=== PATIENT | female | born 1960 | race Caucasian/White ===

== ENCOUNTER 2022-10-20 10:39 | Emergency (ER) | payer OTHER ==
--- OUTSIDE RECORDS SUMMARY | 2022-10-20 10:43 | XMS REPORT | Continuity of Care Document ---
:1960 Author Organization [facility] t Address [address] [place] [address] Care Team Providers Name Role Phone Awilda Alatorre Attending Clinician Unavailable Lucy Escobedo Attending Clinician Unavailable Payers Payer Name Policy Type Policy Number Effective Date Expiration Date S [place] [address] [id number] 2019 [facility] 00:00:00 [facility] Problems Condition Condition Condition Status Onset Resolution Last Treating Co mments Source Name Details Category Date Date Treatment Clinician Date [id number] Primary Problem Common insomnia [facility] [id number] Depression Problem Co mmon with Spirit anxiety [facility] [id number] Abnormal Problem Comm on renal [facility] function - [facility] test [facility] [id number] Asthma, Problem Commo n unspecifie Spirit d asthma - [facility] severity, St unspecifie [facility] d whether Medical complicate Center d, unspecifie d whether persistent [id number] Restless Problem Commo n legs [facility] syndrome [facility] [id number] Essential Problem Comm on hypertensi Spirit on [facility] [id number] Overweight Problem Co mmon (BMI Spirit 25.0-29.9) [facility] Bipolar Bipolar Problem Common disorder disorder [facility] [id number] Prediabete Problem Co mmon s Spirit [facility] [id number] Electrolyt Problem Co mmon e Spirit abnormalit [facility] y [facility] [id number] Abnormal Problem Comm on CBC [facility] [id number] Tobacco Problem Commo n use [facility] Allergies, Adverse Reactions, Alerts This patient has no known allergies or adverse reactions. Social History Social Habit Start Date Stop Date Quantity Comments Source History of Tobacco Current Smoker Co mmon [facility] - [facility] Use [facility] Sex Assigned At Com mon [facility] Smoking Status Start Date Stop Date Source Current Smoker 2022-01-29 00:00:00 Common [facility] Medications Ordered Filled Start Stop Current Ordering Indication Dosage Frequency Signature Comments Components Source Medication Medication Date Date Medication? Clinician (SIG) Name Name amLODIPine amLODIPine 2020-03 No 1{table QD amLODIPine Besylate 5 Besylate 5 2-16 t} Besylate 5 MG MG 00:00: MG 00 amLODIPine amLODIPine 2020-03 No 1{table QD amLODIPine Besylate 5 Besylate 5 2-16 t} Besylate 5 MG MG 00:00: MG 00 Sertraline Sertraline 2020-03 No 1{table QD Sertraline HCl 25 MG HCl 25 MG 0-04 t} HCl 25 MG 00:00: 00 Trelegy Trelegy 2020- No 1{puff} QD Trelegy Ellipta Ellipta 7-19 11-16 Ellipta 100-62.5-25 100-62.5-25 00:00: 00:00 100-62.5-2 MCG/INH MCG/INH 00 :00 5 MCG/INH Trelegy Trelegy 2020- No 1{puff} QD Trelegy Ellipta Ellipta 7-19 11-16 Ellipta 100-62.5-25 100-62.5-25 00:00: 00:00 100-62.5-2 MCG/INH MCG/INH 00 :00 5 MCG/INH Bystolic Bystolic 2019- Yes Lucy 1 tablet Common 8-25 [facility] Spirit 00:00: - [facility] Losartan Losartan 2019-0 Yes Lucy 1 tablet Common Potassium Potassium 8-25 [place] 00:00: [facility] Ropinirole Ropinirole 2018-03 Yes Lucy 1 tablet 1 Common HCl HCl 1-05 [place] to 3 hours Spir it 00:00: before - [facility] 00 bedtime [facility] Quetiapine Quetiapine Yes Lucy 1 tablet Common Fumarate Fumarate [place] at bedtime [facility] Metoprolol Metoprolol Yes Lucy 1 tablet Common Tartrate Tartrate [place] with food [facility] Viibryd Viibryd Yes Lucy 1 tablet Comm on Millender with food Spiri t [facility] BusPIRone BusPIRone Yes Lucy 1 tablet Common HCl HCl Millender [facility] Trelegy Trelegy Yes Lucy 1 puff Common Ellipta Ellipta [facility] Spir [facility] Advair Advair Yes Lucy 1 puff Common Diskus Diskus Millender [facility] ProAir HFA ProAir HFA Yes Lucy 2 puffs as Common Millender needed [facility] Albuterol Albuterol No Albuterol Sulfate HFA Sulfate HFA Sulfate 108 (90 108 (90 HFA 108 Base) Base) (90 Base) MCG/ACT MCG/ACT MCG/ACT QUEtiapine QUEtiapine No QUEtiapine Fumarate 50 Fumarate 50 Fumarate MG MG 50 MG rOPINIRole rOPINIRole No QD rOPINIRole HCl 0.25 MG HCl 0.25 MG HCl 0.25 MG Losartan Losartan No 1{table QD Losartan Potassium Potassium t} Potassium 50 MG 50 MG 50 MG Sertraline Sertraline No QD Sertraline HCl 50 MG HCl 50 MG HCl 50 MG Metoprolol Metoprolol No 1{table BID Metoprolol Tartrate 50 Tartrate 50 t_with_ Tartrate MG MG food} 50 MG busPIRone busPIRone No busPIRone HCl 7.5 MG HCl 7.5 MG HCl 7.5 MG Albuterol Albuterol No Albuterol Sulfate HFA Sulfate HFA Sulfate 108 (90 108 (90 HFA 108 Base) Base) (90 Base) MCG/ACT MCG/ACT MCG/ACT QUEtiapine QUEtiapine No QUEtiapine Fumarate 50 Fumarate 50 Fumarate MG MG 50 MG rOPINIRole rOPINIRole No QD rOPINIRole HCl 0.25 MG HCl 0.25 MG HCl 0.25 MG Losartan Losartan No 1{table QD Losartan Potassium Potassium t} Potassium 50 MG 50 MG 50 MG Sertraline Sertraline No QD Sertraline HCl 50 MG HCl 50 MG HCl 50 MG Metoprolol Metoprolol No 1{table BID Metoprolol Tartrate 50 Tartrate 50 t_with_ Tartrate MG MG food} 50 MG busPIRone busPIRone No busPIRone HCl 7.5 MG HCl 7.5 MG HCl 7.5 MG QUEtiapine QUEtiapine No QD QUEtiapine Fumarate 50 Fumarate 50 Fumarate MG MG 50 MG Metoprolol Metoprolol No 1{table BID Metoprolol Tartrate 50 Tartrate 50 t_with_ Tartrate MG MG food} 50 MG Sertraline Sertraline No QD Sertraline HCl 50 MG HCl 50 MG HCl 50 MG busPIRone busPIRone No busPIRone HCl 7.5 MG HCl 7.5 MG HCl 7.5 MG Losartan Losartan No 1{table QD Losartan Potassium Potassium t} Potassium 100 MG 100 MG 100 MG rOPINIRole rOPINIRole No QD rOPINIRole HCl 0.25 MG HCl 0.25 MG HCl 0.25 MG Albuterol Albuterol No Albuterol Sulfate HFA Sulfate HFA Sulfate 108 (90 108 (90 HFA 108 Base) Base) (90 Base) MCG/ACT MCG/ACT MCG/ACT QUEtiapine QUEtiapine No QD QUEtiapine Fumarate 50 Fumarate 50 Fumarate MG MG 50 MG Sertraline Sertraline No QD Sertraline HCl 50 MG HCl 50 MG HCl 50 MG rOPINIRole rOPINIRole No QD rOPINIRole HCl 0.25 MG HCl 0.25 MG HCl 0.25 MG busPIRone busPIRone No busPIRone HCl 7.5 MG HCl 7.5 MG HCl 7.5 MG Losartan Losartan No 1{table QD Losartan Potassium Potassium t} Potassium 100 MG 100 MG 100 MG Albuterol Albuterol No Albuterol Sulfate HFA Sulfate HFA Sulfate 108 (90 108 (90 HFA 108 Base) Base) (90 Base) MCG/ACT MCG/ACT MCG/ACT Metoprolol Metoprolol No 1{table BID Metoprolol Tartrate 50 Tartrate 50 t_with_ Tartrate MG MG food} 50 MG busPIRone busPIRone No busPIRone HCl 7.5 MG HCl 7.5 MG HCl 7.5 MG amLODIPine amLODIPine No amLODIPine Besylate 5 Besylate 5 Besylate 5 MG MG MG Metoprolol Metoprolol No 1{table BID Metoprolol Tartrate 50 Tartrate 50 t_with_ Tartrate MG MG food} 50 MG Losartan Losartan No Losartan Potassium Potassium Potassium 100 MG 100 MG 100 MG rOPINIRole rOPINIRole No QD rOPINIRole HCl 0.25 MG HCl 0.25 MG HCl 0.25 MG Sertraline Sertraline No QD Sertraline HCl 100 MG HCl 100 MG HCl 100 MG Albuterol Albuterol No Albuterol Sulfate HFA Sulfate HFA Sulfate 108 (90 108 (90 HFA 108 Base) Base) (90 Base) MCG/ACT MCG/ACT MCG/ACT QUEtiapine QUEtiapine No QD QUEtiapine Fumarate 50 Fumarate 50 Fumarate MG MG 50 MG Albuterol Albuterol No Albuterol Sulfate HFA Sulfate HFA Sulfate 108 (90 108 (90 HFA 108 Base) Base) (90 Base) MCG/ACT MCG/ACT MCG/ACT amLODIPine amLODIPine No 1{table QD amLODIPine Besylate 10 Besylate 10 t} Besylate MG MG 10 MG rOPINIRole rOPINIRole No QD rOPINIRole HCl 0.25 MG HCl 0.25 MG HCl 0.25 MG amLODIPine amLODIPine No amLODIPine Besylate 5 Besylate 5 Besylate 5 MG MG MG Metoprolol Metoprolol No 1{table BID Metoprolol Tartrate 50 Tartrate 50 t_with_ Tartrate MG MG food} 50 MG Sertraline Sertraline No QD Sertraline HCl 50 MG HCl 50 MG HCl 50 MG Losartan Losartan No Losartan Potassium Potassium Potassium 100 MG 100 MG 100 MG busPIRone busPIRone No BID busPIRone HCl 10 MG HCl 10 MG HCl 10 MG QUEtiapine QUEtiapine No QD QUEtiapine Fumarate 50 Fumarate 50 Fumarate MG MG 50 MG busPIRone busPIRone No busPIRone HCl 7.5 MG HCl 7.5 MG HCl 7.5 MG Albuterol Albuterol No Albuterol Sulfate HFA Sulfate HFA Sulfate 108 (90 108 (90 HFA 108 Base) Base) (90 Base) MCG/ACT MCG/ACT MCG/ACT amLODIPine amLODIPine No 1{table QD amLODIPine Besylate 10 Besylate 10 t} Besylate MG MG 10 MG rOPINIRole rOPINIRole No QD rOPINIRole HCl 0.25 MG HCl 0.25 MG HCl 0.25 MG amLODIPine amLODIPine No amLODIPine Besylate 5 Besylate 5 Besylate 5 MG MG MG Metoprolol Metoprolol No 1{table BID Metoprolol Tartrate 50 Tartrate 50 t_with_ Tartrate MG MG food} 50 MG Sertraline Sertraline No QD Sertraline HCl 50 MG HCl 50 MG HCl 50 MG Losartan Losartan No Losartan Potassium Potassium Potassium 100 MG 100 MG 100 MG busPIRone busPIRone No BID busPIRone HCl 10 MG HCl 10 MG HCl 10 MG QUEtiapine QUEtiapine No QD QUEtiapine Fumarate 50 Fumarate 50 Fumarate MG MG 50 MG busPIRone busPIRone No busPIRone HCl 7.5 MG HCl 7.5 MG HCl 7.5 MG Albuterol Albuterol No Albuterol Sulfate HFA Sulfate HFA Sulfate 108 (90 108 (90 HFA 108 Base) Base) (90 Base) MCG/ACT MCG/ACT MCG/ACT amLODIPine amLODIPine No 1{table QD amLODIPine Besylate 10 Besylate 10 t} Besylate MG MG 10 MG rOPINIRole rOPINIRole No QD rOPINIRole HCl 0.25 MG HCl 0.25 MG HCl 0.25 MG amLODIPine amLODIPine No amLODIPine Besylate 5 Besylate 5 Besylate 5 MG MG MG Metoprolol Metoprolol No 1{table BID Metoprolol Tartrate 50 Tartrate 50 t_with_ Tartrate MG MG food} 50 MG Sertraline Sertraline No QD Sertraline HCl 50 MG HCl 50 MG HCl 50 MG Losartan Losartan No Losartan Potassium Potassium Potassium 100 MG 100 MG 100 MG busPIRone busPIRone No BID busPIRone HCl 10 MG HCl 10 MG HCl 10 MG QUEtiapine QUEtiapine No QD QUEtiapine Fumarate 50 Fumarate 50 Fumarate MG MG 50 MG busPIRone busPIRone No busPIRone HCl 7.5 MG HCl 7.5 MG HCl 7.5 MG busPIRone busPIRone No busPIRone HCl 7.5 MG HCl 7.5 MG HCl 7.5 MG Sertraline Sertraline No QD Sertraline HCl 50 MG HCl 50 MG HCl 50 MG busPIRone busPIRone No busPIRone HCl 10 MG HCl 10 MG HCl 10 MG QUEtiapine QUEtiapine No QD QUEtiapine Fumarate 50 Fumarate 50 Fumarate MG MG 50 MG amLODIPine amLODIPine No amLODIPine Besylate 5 Besylate 5 Besylate 5 MG MG MG Metoprolol Metoprolol No 1{table BID Metoprolol Tartrate 50 Tartrate 50 t_with_ Tartrate MG MG food} 50 MG Losartan Losartan No Losartan Potassium Potassium Potassium 100 MG 100 MG 100 MG Albuterol Albuterol No Albuterol Sulfate HFA Sulfate HFA Sulfate 108 (90 108 (90 HFA 108 Base) Base) (90 Base) MCG/ACT MCG/ACT MCG/ACT rOPINIRole rOPINIRole No rOPINIRole HCl 0.25 MG HCl 0.25 MG HCl 0.25 MG amLODIPine amLODIPine No amLODIPine Besylate 10 Besylate 10 Besylate MG MG 10 MG amLODIPine amLODIPine No amLODIPine Besylate 10 Besylate 10 Besylate MG MG 10 MG Metoprolol Metoprolol No Metoprolol Tartrate 50 Tartrate 50 Tartrate MG MG 50 MG amLODIPine amLODIPine No 1{table QD amLODIPine Besylate 5 Besylate 5 t} Besylate 5 MG MG MG busPIRone busPIRone No busPIRone HCl 10 MG HCl 10 MG HCl 10 MG rOPINIRole rOPINIRole No QD rOPINIRole HCl 0.5 MG HCl 0.5 MG HCl 0.5 MG busPIRone busPIRone No 1{table BID busPIRone HCl 10 MG HCl 10 MG t} HCl 10 MG QUEtiapine QUEtiapine No 1{table QD QUEtiapine Fumarate 50 Fumarate 50 t_at_be Fumarate MG MG dtime} 50 MG Sertraline Sertraline No 1{table QD Sertraline HCl 50 MG HCl 50 MG t} HCl 50 MG Losartan Losartan No Losartan Potassium Potassium Potassium 50 MG 50 MG 50 MG QUEtiapine QUEtiapine No QUEtiapine Fumarate 50 Fumarate 50 Fumarate MG MG 50 MG Albuterol Albuterol No Albuterol Sulfate HFA Sulfate HFA Sulfate 108 (90 108 (90 HFA 108 Base) Base) (90 Base) MCG/ACT MCG/ACT MCG/ACT Losartan Losartan No Losartan Potassium Potassium Potassium 50 MG 50 MG 50 MG busPIRone busPIRone No 1{table BID busPIRone HCl 10 MG HCl 10 MG t} HCl 10 MG amLODIPine amLODIPine No amLODIPine Besylate 10 Besylate 10 Besylate MG MG 10 MG Metoprolol Metoprolol No BID Metoprolol Tartrate 50 Tartrate 50 Tartrate MG MG 50 MG Sertraline Sertraline No 1{table QD Sertraline HCl 100 MG HCl 100 MG t} HCl 100 MG rOPINIRole rOPINIRole No rOPINIRole HCl 0.25 MG HCl 0.25 MG HCl 0.25 MG QUEtiapine QUEtiapine No QUEtiapine Fumarate 50 Fumarate 50 Fumarate MG MG 50 MG Albuterol Albuterol No Albuterol Sulfate HFA Sulfate HFA Sulfate 108 (90 108 (90 HFA 108 Base) Base) (90 Base) MCG/ACT MCG/ACT MCG/ACT rOPINIRole rOPINIRole No rOPINIRole HCl 0.25 MG HCl 0.25 MG HCl 0.25 MG Metoprolol Metoprolol No Metoprolol Tartrate 50 Tartrate 50 Tartrate MG MG 50 MG Albuterol Albuterol No 6xD Albuterol Sulfate HFA Sulfate HFA Sulfate 108 (90 108 (90 HFA 108 Base) Base) (90 Base) MCG/ACT MCG/ACT MCG/ACT Losartan Losartan No Losartan Potassium Potassium Potassium 50 MG 50 MG 50 MG busPIRone busPIRone No 1{table BID busPIRone HCl 10 MG HCl 10 MG t} HCl 10 MG QUEtiapine QUEtiapine No QUEtiapine Fumarate 50 Fumarate 50 Fumarate MG MG 50 MG Sertraline Sertraline No Sertraline HCl 100 MG HCl 100 MG HCl 100 MG amLODIPine amLODIPine No amLODIPine Besylate 10 Besylate 10 Besylate MG MG 10 MG busPIRone busPIRone No 1{table BID busPIRone HCl 10 MG HCl 10 MG t} HCl 10 MG amLODIPine amLODIPine No amLODIPine Besylate 10 Besylate 10 Besylate MG MG 10 MG Metoprolol Metoprolol No Metoprolol Tartrate 50 Tartrate 50 Tartrate MG MG 50 MG Losartan Losartan No Losartan Potassium Potassium Potassium 50 MG 50 MG 50 MG Sertraline Sertraline No Sertraline HCl 100 MG HCl 100 MG HCl 100 MG rOPINIRole rOPINIRole No rOPINIRole HCl 0.25 MG HCl 0.25 MG HCl 0.25 MG Albuterol Albuterol No 6xD Albuterol Sulfate HFA Sulfate HFA Sulfate 108 (90 108 (90 HFA 108 Base) Base) (90 Base) MCG/ACT MCG/ACT MCG/ACT QUEtiapine QUEtiapine No QD QUEtiapine Fumarate Fumarate Fumarate 100 MG 100 MG 100 MG busPIRone busPIRone No busPIRone HCl 7.5 MG HCl 7.5 MG HCl 7.5 MG Metoprolol Metoprolol No 1{table BID Metoprolol Tartrate 50 Tartrate 50 t_with_ Tartrate MG MG food} 50 MG rOPINIRole rOPINIRole No QD rOPINIRole HCl 0.25 MG HCl 0.25 MG HCl 0.25 MG QUEtiapine QUEtiapine No QUEtiapine Fumarate 50 Fumarate 50 Fumarate MG MG 50 MG Losartan Losartan No 1{table QD Losartan Potassium Potassium t} Potassium 50 MG 50 MG 50 MG ProAir HFA ProAir HFA No 2{puffs ProAir HFA 108 (90 108 (90 _as_nee 108 (90 Base) Base) ded} Base) MCG/ACT MCG/ACT MCG/ACT rOPINIRole rOPINIRole No QD rOPINIRole HCl 0.25 MG HCl 0.25 MG HCl 0.25 MG Albuterol Albuterol No Albuterol Sulfate HFA Sulfate HFA Sulfate 108 (90 108 (90 HFA 108 Base) Base) (90 Base) MCG/ACT MCG/ACT MCG/ACT Losartan Losartan No 1{table QD Losartan Potassium Potassium t} Potassium 50 MG 50 MG 50 MG QUEtiapine QUEtiapine No QUEtiapine Fumarate 50 Fumarate 50 Fumarate MG MG 50 MG busPIRone busPIRone No busPIRone HCl 7.5 MG HCl 7.5 MG HCl 7.5 MG Metoprolol Metoprolol No 1{table BID Metoprolol Tartrate 50 Tartrate 50 t_with_ Tartrate MG MG food} 50 MG Sertraline Sertraline No Sertraline HCl 25 MG HCl 25 MG HCl 25 MG Immunizations Ordered Immunization Filled Immunization Date Status Commen ts Source Name Name Flucelvax - single Flucelvax - single 2019-01-13 Completed [facility] dose syringe dose syringe 14:55:00 - [facility] Flucelvax - single Flucelvax - single 2019-01-13 Completed [facility] dose syringe dose syringe 14:55:00 - [facility] Flucelvax - single Flucelvax - single 2019-01-13 Completed [facility] dose syringe dose syringe 14:55:00 - [facility] Flucelvax - single Flucelvax - single 2019-01-13 Completed [facility] dose syringe dose syringe 14:55:00 - [facility] Flucelvax - single Flucelvax - single 2019-01-13 Completed [facility] dose syringe dose syringe 14:55:00 - [facility] Flucelvax - single Flucelvax - single 2019-01-13 Completed [facility] dose syringe dose syringe 14:55:00 - [facility] Flucelvax - single Flucelvax - single 2019-01-13 Completed [facility] dose syringe dose syringe 14:55:00 - [facility] Flucelvax - single Flucelvax - single 2019-01-13 Completed [facility] dose syringe dose syringe 14:55:00 - [facility] Flucelvax - single Flucelvax - single 2019-01-13 Completed [facility] dose syringe dose syringe 14:55:00 - [facility] Flucelvax - single Flucelvax - single 2019-01-13 Completed [facility] dose syringe dose syringe 14:55:00 - [facility] Flucelvax - single Flucelvax - single 2019-01-13 Completed [facility] dose syringe dose syringe 14:55:00 - [facility] Flucelvax - single Flucelvax - single 2019-01-13 Completed [facility] dose syringe dose syringe 14:55:00 - [facility] Flucelvax - single Flucelvax - single 2019-01-13 Completed [facility] dose syringe dose syringe 14:55:00 - [facility] Flucelvax - single Flucelvax - single 2019-01-13 Completed [facility] dose syringe dose syringe 14:55:00 - [facility] Flucelvax - single Flucelvax - single 2019-01-13 Completed [facility] dose syringe dose syringe 14:55:00 - [facility] Flucelvax - single Flucelvax - single 2019-01-13 Completed [facility] dose syringe dose syringe 00:00:00 - [facility] Vital Signs Vital Name Observation Time Observation Value Comments Source height 2022-01-29 11:40:00 62.00 [in_i] Common S pirit - [facility] weight 2022-01-29 11:40:00 168.2 [lb_av] Common [facility] temperature 2022-01-29 11:40:00 97.6 [degF] Common S pirit [facility] bmi 2022-01-29 11:40:00 30.76 kg/m2 Common S [facility] oximetry 2022-01-29 11:40:00 95 % Common S pirit [facility] respiratory rate 2022-01-29 11:40:00 17 /min Comm on [facility] blood pressure 2022-01-29 11:40:00 124 mm[Hg] [facility] - systolic [facility] blood pressure 2022-01-29 11:40:00 76 mm[Hg] [facility] - diastolic [facility] height 2021-10-21 10:00:00 62.00 [in_i] Common S [facility] weight 2021-10-21 10:00:00 159.4 [lb_av] Common [facility] temperature 2021-10-21 10:00:00 97.0 [degF] Common S [facility] bmi 2021-10-21 10:00:00 29.15 kg/m2 Common S [facility] oximetry 2021-10-21 10:00:00 94 % [facility] 2021-10-21 10:00:00 18 /min Comm on [facility] blood pressure 2021-10-21 10:00:00 116 mm[Hg] [facility] - systolic [facility] blood pressure 2021-10-21 10:00:00 71 mm[Hg] [facility] - diastolic [facility] height 2021-07-15 14:20:00 62.00 [in_i] Common S pirit [facility] weight 2021-07-15 14:20:00 160 [lb_av] Common S pirit [facility] bmi 2021-07-15 14:20:00 29.26 kg/m2 Common S pirit [facility] height 2021-04-16 10:40:00 62.00 [in_i] Common S pirit [facility] weight 2021-04-16 10:40:00 160 [lb_av] Common S pirit [facility] 2021-04-16 10:40:00 29.26 kg/m2 Common S pirit [facility] height 2021-03-26 10:20:00 62.00 [in_i] Common S pirit [facility] weight 2021-03-26 10:20:00 160 [lb_av] [facility] S [facility] bmi 2021-03-26 10:20:00 29.26 kg/m2 [facility] height 2021-03-06 08:00:00 62.00 [in_i] [facility] S [facility] weight 2021-03-06 08:00:00 160 [lb_av] [facility] 2021-03-06 08:00:00 29.26 kg/m2 [facility] S [facility] height 2021-02-18 13:00:00 62.00 [in_i] [facility] weight 2021-02-18 13:00:00 160 [lb_av] [facility] S [facility] bmi 2021-02-18 13:00:00 29.26 kg/m2 [facility] blood pressure 2021-01-20 10:40:00 84 mm[Hg] [facility] diastolic [facility] height 2021-01-20 10:40:00 62.00 [in_i] Common S pirit [facility] weight 2021-01-20 10:40:00 159 [lb_av] [facility] temperature 2021-01-20 10:40:00 97.7 [degF] [facility] bmi 2021-01-20 10:40:00 29.08 kg/m2 [facility] oximetry 2021-01-20 10:40:00 95 % [facility] respiratory rate 2021-01-20 10:40:00 18 /min Comm on [facility] blood pressure 2021-01-20 10:40:00 132 mm[Hg] [facility] height 2020-12-23 10:20:00 62.00 [in_i] [facility] weight 2020-12-23 10:20:00 158.4 [lb_av] [facility] temperature 2020-12-23 10:20:00 97.0 [degF] [facility] bmi 2020-12-23 10:20:00 28.97 kg/m2 [facility] oximetry 2020-12-23 10:20:00 96 % [facility] respiratory rate 2020-12-23 10:20:00 20 /min Comm on [facility] Procedures This patient has no known procedures. Encounters Start End Encounter Admission Attending Care Care Encounter Source Date/Time Date/Time Type Type Clinicians Facility Department ID 2022-05-25 [place], STWENDYLC STLMLC [id number] Common 08:58:00 Awilda [id number] [facility] 2022-04-29 [place], STLMLC STLMLC [id number] Common 13:40:00 Awilda [id number] [facility] 2022-01-28 [place], STLMLC STLMLC [id number] Common 07:34:00 Awilda [id number] [facility] 2022-01-21 [place], STLMLC STLMLC [id number] Common 15:46:00 Awilda [id number] [facility] 2022-01-20 Out[place], STLMLC STLMLC [id number] Common 07:51:00 Awilda 90095 [facility] 2021-10-21 Outpatient [place], STLMLC STLMLC [id number] Common 09:54:00 Awilda [facility] 2021-04-16 Out[place], STLMLC STLMLC [id number] Common 14:39:14 Awilda [facility] 2021-04-16 Out[place], STLMLC STLMLC [id number] Common 14:31:06 Awilda [facility] 2021-04-16 Out[place], STLMLC STLMLC [id number] Common 14:25:23 Awilda [facility] 2021-04-16 Out[place], STLMLC STLMLC [id number] Common 14:12:59 Awilda [facility] 2021-04-16 Outpatient [place], STLMLC STLMLC [id number] Common 12:20:08 Awilda [id number] [facility] 2021-04-16 Outpatient [place], STLMLC STLMLC [id number] Common 12:16:05 Awilda [facility] 2021-04-16 Outpatient STLMLC STLMLC [id number] Common 12:15:10 [id number] [facility] 2021-04-16 Outpatient [place], STLMLC STLMLC [id number] Common 11:40:31 Lucy [id number] [facility] 2022-02-17 2022-02-17 (TEL) STLMLC STLMLC [id number] Co mmon 00:00:00 00:00:00 [facility] 2022-01-29 2022-01-29 OFFICE STLMLC STLMLC [id number] Co mmon 00:00:00 00:00:00 VISIT EST Spir it PT LEVEL 3 [facility] 2021-10-21 2021-10-21 OFFICE STLMLC STLMLC [id number] Co mmon 00:00:00 00:00:00 VISIT EST Spir it PT LEVEL 3 [facility] 2021-07-15 2021-07-15 OFFICE STLMLC STLMLC [id number] Co mmon 00:00:00 00:00:00 VISIT EST Spir it PT LEVEL 3 [facility] 2021-06-13 2021-06-13 (TEL) STLMLC STLMLC [id number] Co mmon 00:00:00 00:00:00 [facility] [facility] 2021-04-16 2021-04-16 OFFICE STLMLC STLMLC [id number] Co mmon 00:00:00 00:00:00 VISIT EST Spir it PT LEVEL 3 [facility] 2021-04-16 2021-04-16 (TEL) STLMLC STLMLC [id number] Co mmon 00:00:00 00:00:00 [facility] 2021-04-14 2021-04-14 (TEL) STLMLC STLMLC [id number] Co mmon 00:00:00 00:00:00 [facility] 2021-03-26 2021-03-26 OL DIG E/M STLMLC STLMLC [id number] Common 00:00:00 00:00:00 C -20 Spir it MIN [facility] 2021-03-19 2021-03-19 (TEL) STLMLC STLMLC [id number] Co mmon 00:00:00 00:00:00 [facility] 2021-03-06 2021-03-06 OFFICE STLMLC STLMLC [id number] Co mmon 00:00:00 00:00:00 VISIT EST Spir it PT LEVEL 3 [facility] 2021-02-25 2021-02-25 (TEL) STLMLC STLMLC [id number] Co mmon 00:00:00 00:00:00 [facility] 2021-02-18 2021-02-18 OFFICE STLMLC STLMLC [id number] Co mmon 00:00:00 00:00:00 VISIT EST Spir it PT LEVEL 3 [facility] 2021-01-20 2021-01-20 OFFICE STLMLC STLMLC [id number] Co mmon 00:00:00 00:00:00 VISIT EST Spir it PT LEVEL 3 - [facility] 2020-12-23 2020-12-23 OFFICE STLMLC STLMLC [id number] Co mmon 00:00:00 00:00:00 VISIT [facility] PT - [facility] LEVEL 4 [facility] 2020-10-07 2020-10-07 Outpatient STLMLC STLMLC [id number] Common 00:00:00 00:00:00 [facility] 2020-10-02 2020-10-02 Outpatient STLMLC STLMLC [id number] Common 00:00:00 00:00:00 [facility] 2020-09-13 2020-09-13 Outpatient STLMLC STLMLC [id number] Common 00:00:00 00:00:00 [facility] 2020-08-16 2020-08-16 Outpatient STLMLC STLMLC [id number] Common 00:00:00 00:00:00 [facility] 2020-06-27 2020-06-27 Outpatient STLMLC STLMLC [id number] Common 00:00:00 00:00:00 [facility] 2020-06-20 2020-06-20 Outpatient STLMLC STLMLC [id number] Common 00:00:00 00:00:00 [facility] 2020-04-04 2020-04-04 Outpatient STLMLC STLMLC [id number] Common 00:00:00 00:00:00 [facility] 2020-03-08 2020-03-08 Outpatient STLMLC STLMLC [id number] Common 00:00:00 00:00:00 [facility] 2020-03-06 2020-03-06 Outpatient STLMLC STLMLC [id number] Common 00:00:00 00:00:00 [facility] 2019-11-14 2019-11-14 [id number] Common 15:20:00 15:20:00 [facility] it [facility] 2019-10-05 2019-10-05 [facility] [id number] Common 11:34:00 11:34:[address] [facility] 2019-10-05 2019-10-05 [facility] [id number] Common 10:45:00 10:45:[address] [facility] 2019-02-06 2019-02-06 [facility] [id number] Common 21:16:00 21:16:[address] [facility] 2019-02-02 2019-02-02 [facility] [id number] Common 13:53:00 13:53:[address] [facility] 2019-01-26 2019-01-26 [facility] [id number] Common 08:40:00 08:40:[address] [facility] 2019-01-16 2019-01-16 [facility] [id number] Common 08:36:00 08:36:[address] [facility] 2019-01-13 2019-01-13 [facility] [id number] Common 11:00:00 11:00:[address] [facility] 2018-12-22 2018-12-22 [facility] [id number] Common 14:47:00 14:47:[address] [facility] 2018 2018 [facility] [id number] Common 15:47:00 15:47:[address] [facility] 2018 2018 [facility] [id number] Common 13:00:00 13:00:[address] [facility] Results This patient has no known results.
[2022-10-20] MEDS ORDERED: NA CHLORIDE 0.9% 1,000 ML ONE (11:12)
[2022-10-20] MEDS ORDERED: LEVALBUTEROL 1.25 MG/3 ML NEB ONE (11:12)
[2022-10-20 11:14] LABS: Absolute Lymphocytes (CBC) 1.8 K/uL (0.7-4.9); Hematocrit 44.6 % (36.0-45.0); MCV 92.5 fL (80-100); MPV 9.7 fL (7.6-11.3); RBC Red Blood Cell Count 4.83 M/uL (3.86-4.86)
[2022-10-20 11:18] LABS: Protime INR 0.88
[2022-10-20 11:34] LABS: Potassium 3.8 mEq/L (3.5-5.1); Troponin High Sensitivity 4.7 pg/mL (<58.9)
[2022-10-20] MEDS ORDERED: METHYLPREDNISOLONE 125 MG INJ ONE (11:53)
[2022-10-20] MEDS ORDERED: IBUPROFEN 400 MG TAB ONE (13:30)
--- NOTE | 2022-10-20 14:04 | RAD REPORT ---
EXAM DESCRIPTION: Lali Single View10/20/2022 1:49 pm CLINICAL HISTORY: Cough COMPARISON: 2019 FINDINGS: The lungs appear clear of acute infiltrate. The heart is normal size IMPRESSION: No acute abnormalities displayed
--- NOTE | 2022-10-20 14:11 | ER ---
Nurse's Notes [facility] Name: Edda Stockton Age: 61 yrs Sex: Female : 1960 Arrival Date: 10/20/2022 Time: 10:39 Bed 16 Private MD: Diagnosis: COPD/ Chronic obstructive pulmonary disease with (acute) exacerbation Presentation: 10/20 10:46 Chief complaint: Patient states: diff breathing X 3 days , no fever , no cough, denies iw chest pain , hx of COPD. Coronavirus screen: Client presents with at least one sign or symptom that may indicate coronavirus-19. Ebola Screen: Patient negative for fever greater than or equal to 101.5 degrees Fahrenheit, and additional compatible Ebola Virus Disease symptoms Patient denies exposure to infectious person. Patient denies travel to an Ebola-affected area in the 21 days before illness onset. No symptoms or risks identified at this time. Onset of symptoms was October 17, 2022. 10:46 Method Of Arrival: Wheelchair iw 10:46 Acuity: OSCAR 3 iw 10:59 Initial Sepsis Screen: Does the patient meet any 2 criteria? No. Patient's initial ap3 sepsis screen is negative. Does the patient have a suspected source of infection? No. Patient's initial sepsis screen is negative. Risk Assessment: Do you want to hurt yourself or someone else? Patient reports no desire to harm self or others. Triage Assessment: 11:00 Respiratory: Onset: The symptoms/episode began/occurred gradually, the patient has ap3 moderate shortness of breath. 11:00 Respiratory: Reports shortness of breath. ap3 Historical: - Allergies: 10:47 Codeine; iw - PMHx: 10:47 Bipolar disorder; Hypertension; COPD; Asthma; iw - Immunization history:: Client reports receiving the 1st dose of the Covid vaccine. - Social history:: Smoking status: Patient reports the use of cigarette tobacco products. - Family history:: not pertinent. - Hospitalizations: : No recent hospitalization is reported. Screenin:59 Abuse screen: Denies threats or abuse. Nutritional screening: No deficits noted. ap3 Tuberculosis screening: No symptoms or risk factors identified. 14:27 [facility] ED Fall Risk Assessment (Adult) History of falling in the last 3 months, ap3 including since admission No falls in past 3 months (0 pts). Assessment: 10:59 General: Appears distressed, Behavior is cooperative, appropriate for age. Pain: Denies ap3 pain. Neuro: Level of Consciousness is awake, alert, obeys commands, Oriented to person, place, time, situation. Cardiovascular: Patient's skin is warm and dry. Respiratory: Airway is patent Respiratory effort is even, labored, Breath sounds with wheezes bilaterally. 14:26 Cardiovascular: Rhythm is regular. ap3 Vital Signs: 10:48 BP 140 / 94; Pulse 96; Resp 20 S; Pulse Ox 96% on R/A; Weight 81.65 kg; Height 5 ft. 3 iw in. ; Pain 0/10; 12:46 BP 140 / 94; Pulse 96; Pulse Ox 96% ; ap3 10:48 Body Mass Index 31.89 (81.65 kg, 160.02 cm) iw 10:48 Pain Scale: Adult iw ED Course: 10:40 Patient arrived in ED. ap3 10:41 Parish Whatley MD is Attending Physician. rn 10:42 Ashley Jacinto RN is Primary Nurse. ap3 10:47 Triage completed. iw 10:47 Arm band placed on. iw 10:58 Inserted saline lock: 20 gauge in left forearm, using aseptic technique. Blood ap3 collected. 10:58 Initial lab(s) drawn, by fl, sent to lab. First set of blood cultures drawn by me. ap3 11:00 Patient has correct armband on for positive identification. Placed in gown. Bed in low ap3 position. Call light in reach. Side rails up X 1. 11:08 Flu and/or RSV swab sent to lab. ap3 11:20 XRAY CXR (1 view) In Process Unspecified. EDMS 12:56 Second set of blood cultures drawn by me. ap3 14:26 Provided Education on: discharge instructions. ap3 14:26 No provider procedures requiring assistance completed. IV discontinued, intact, ap3 bleeding controlled, No redness/swelling at site. Pressure dressing applied. Administered Medications: 11:13 Drug: Levalbuterol Inhalation 1.25 mg Route: Inhalation; ap3 11:13 Drug: NS 0.9% IV 1000 ml Route: IV; Rate: 1000 ml; Site: left forearm; ap3 14:27 Follow up: IV Status: Completed infusion ap3 11:48 Drug: MethylPrednisoLONE IVP 125 mg Route: IVP; Site: left forearm; ap3 13:22 Follow up: Response: No adverse reaction ap3 13:21 Drug: Ibuprofen PO 800 mg Route: PO; ap3 14:27 Follow up: Response: No adverse reaction ap3 Medication: 14:26 VIS not applicable for this client. ap3 Outcome: 14:10 Discharge ordered by . rn 14:26 Discharged to home ambulatory, with family. ap3 14:26 Condition: good 14:26 Discharge instructions given to patient, Instructed on discharge instructions, follow up and referral plans. medication usage, Demonstrated understanding of instructions, follow-up care, medications, Prescriptions given X 3. 14:27 Patient left the ED. ap3 Signatures: Dispatcher [employer] EDMS Alicia Saravia RN RN iw Nieto, Roman, MD MD rn Prokisch, Amanda, RN RN ap3 Corrections: (The following items were deleted from the chart) 12:46 12:45 BP 161 / 55; Pulse 54bpm; Pulse Ox 97%; ap3 ap3
--- NOTE | 2022-10-20 14:11 | EDPHYS ---
Physician Documentation [facility] Name: Edda Stockton Age: 61 yrs Sex: Female : 1960 Arrival Date: 10/20/2022 Time: 10:39 Bed 16 Private MD: ED Physician Parish Whatley HPI: 10/20 10:52 This 61 yrs old Female presents to ER via Wheelchair with complaints of Breathing rn Difficulty. 10:52 The patient has shortness of breath at rest, with light activity. rn 10:53 Onset: The symptoms/episode began/occurred 3 day(s) ago. Duration: The symptoms are rn continuous. The patient's shortness of breath is aggravated by coughing, exertion, light activity. Associated signs and symptoms: Pertinent positives: non-productive cough, Pertinent negatives: fever, hemoptysis. Severity of symptoms: At their worst the symptoms were moderate in the emergency department the symptoms are unchanged. The patient has experienced similar episodes in the past. The patient has not recently seen a physician. Pt report a few days of cough and sob, + COPD, does not feel ill, does report wheezing and sob. No trauma. . Historical: - Allergies: 10:47 Codeine; iw - PMHx: 10:47 Bipolar disorder; Hypertension; COPD; Asthma; iw - Immunization history:: Client reports receiving the 1st dose of the Covid vaccine. - Social history:: Smoking status: Patient reports the use of cigarette tobacco products. - Family history:: not pertinent. - Hospitalizations: : No recent hospitalization is reported. ROS: 10:55 Constitutional: Negative for fever, chills, and weight loss, Eyes: Negative for injury, rn pain, redness, and discharge, Neck: Negative for injury, pain, and swelling, Cardiovascular: Negative for chest pain, palpitations, and edema, Respiratory: + cough and sob Abdomen/GI: Negative for abdominal pain, nausea, vomiting, diarrhea, and constipation, MS/Extremity: Negative for injury and deformity, Skin: Negative for injury, rash, and discoloration, Neuro: Negative for headache, weakness, numbness, tingling, and seizure. Exam: 10:55 Constitutional: This is a well developed, well nourished patient who is awake, alert, rn + mild tachypnea Head/Face: Normocephalic, atraumatic. ENT: dry MM, no stridor Cardiovascular: Regular rate and rhythm. No pulse deficits. Respiratory: + mild tachypnea, + wheezing bilateral upper lungs Abdomen/GI: soft, non-tender Skin: Warm, dry MS/ Extremity: Pulses equal, no cyanosis. Neuro: Awake and alert, GCS 15 12:09 ECG was reviewed by the Attending Physician. rn Vital Signs: 10:48 BP 140 / 94; Pulse 96; Resp 20 S; Pulse Ox 96% on R/A; Weight 81.65 kg; Height 5 ft. 3 iw in. ; Pain 0/10; 12:46 BP 140 / 94; Pulse 96; Pulse Ox 96% ; ap3 10:48 Body Mass Index 31.89 (81.65 kg, 160.02 cm) iw 10:48 Pain Scale: Adult iw MDM: 10:41 Patient medically screened. rn 10:54 ED course: Pt refuses COVID testing. rn 14:08 Differential diagnosis: Anxiety Reaction Bronchitis Chronic Obstructive Pulmonary rn Disease Myocardial Infarction pneumonia, Pneumothorax pulmonary edema, reactive airway disease. Data reviewed: vital signs, nurses notes, lab test result(s), EKG, radiologic studies, plain films, and as a result, I will admit patient. Consideration of Admission/Observation Escalation of care including admission/observation considered. Counseling: I had a detailed discussion with the patient and/or guardian regarding: the historical points, exam findings, and any diagnostic results supporting the discharge/admit diagnosis, lab results, radiology results. Response to treatment: the patient's symptoms have mildly improved after treatment, and as a result, I will admit patient. Refusal of service: The patient/guardian displays adequate decision making capability and despite a detailed discussion of alternatives, benefits, risks, and consequences refuses: Admission to the hospital for further work-up and treatment. ED course: Pt with some improvement, still prefer to obs in hospital, patient declines, does not want to be admitted. . 10/20 10:48 Order name: BMP; Complete Time: 11:59 rn 10/20 10:48 Order name: Blood Culture Adult (2) rn 10/20 10:48 Order name: CBC with Diff; Complete Time: 11:20 rn 10/20 10:48 Order name: NT PRO-BNP; Complete Time: 11:59 rn 10/20 10:48 Order name: PT-INR; Complete Time: 11:20 rn 10/20 10:48 Order name: Ptt, Activated; Complete Time: 11:20 rn 10/20 10:48 Order name: Troponin HS; Complete Time: 11:59 rn 10/20 10:54 Order name: Flu; Complete Time: 11:59 rn 10/20 10:48 Order name: XRAY CXR (1 view); Complete Time: 14:08 rn 10/20 10:48 Order name: EKG; Complete Time: 10:49 rn 10/20 10:48 Order name: Cardiac monitoring; Complete Time: 11:48 rn 10/20 10:48 Order name: EKG - Nurse/Tech; Complete Time: 11:48 rn 10/20 10:48 Order name: IV Saline Lock; Complete Time: :58 rn 10/20 10:48 Order name: Labs collected and sent; Complete Time: :58 rn 10/20 10:48 Order name: O2 Per Protocol; Complete Time: 10:58 rn 10/20 10:48 Order name: O2 Sat Monitoring; Complete Time: 10:58 rn EC:09 Rate is 93 beats/min. Rhythm is regular. QRS Orange is Normal. SD interval is normal. QRS rn interval is normal. QT interval is normal. No Q waves. T waves are Normal. No ST changes noted. Clinical impression: Normal ECG. Interpreted by me. Reviewed by me. Administered Medications: 11:13 Drug: Levalbuterol Inhalation 1.25 mg Route: Inhalation; ap3 11:13 Drug: NS 0.9% IV 1000 ml Route: IV; Rate: 1000 ml; Site: left forearm; ap3 14:27 Follow up: IV Status: Completed infusion ap3 11:48 Drug: MethylPrednisoLONE IVP 125 mg Route: IVP; Site: left forearm; ap3 13:22 Follow up: Response: No adverse reaction ap3 13:21 Drug: Ibuprofen PO 800 mg Route: PO; ap3 14:27 Follow up: Response: No adverse reaction ap3 Disposition Summary: 10/20/22 14:10 Discharge Ordered Location: Home rn Problem: new rn Symptoms: have improved rn Condition: Stable rn Diagnosis - COPD/ Chronic obstructive pulmonary disease with (acute) exacerbation rn Followup: rn - With: Private Physician - When: As needed - Reason: Recheck today's complaints, Re-evaluation by your physician Discharge Instructions: - Discharge Summary Sheet rn - Chronic Obstructive Pulmonary Disease Exacerbation rn Forms: - Medication Reconciliation Form rn - Thank You Letter rn - Antibiotic rn camp - Prescription Opioid Use rn - Patient Portal Instructions rn Prescriptions: - albuterol sulfate 90 mcg/actuation Inhalation Aerosol Powder, Breath Activated - administer 2 inhalation by INHALATION route every 4 to 6 hours as needed for rn shortness of breath or wheezing; 1 unit; Refills: 0, Product Selection Permitted - Prednisone 20 mg Oral Tablet - take 3 tablets by ORAL route once daily for 5 days; 15 tablet; Refills: 0, rn Product Selection Permitted - Zithromax Z-Steven 250 mg Oral Tablet - take 1 tablet by ORAL route as directed for 5 days Day 1 - take two (2) tablets rn one time. Day 2, 3, 4 , 5 take one (1) tablet once daily.; 6 tablet; Refills: 0, Product Selection Permitted Signatures: Dispatcher [employer] Alicia Anderson RN RN iw Parish Whatley MD MD rn Prokisch, Amanda, RN RN ap3
[2022-10-20 15:01] VITALS: BP 140/94; O2SAT 96
--- NOTE | 2022-10-21 17:37 | EKG ---
Test Date: 2022-10-20 Test Time: 11:41:44 Valve Assembler: ALP MEASUREMENT RESULTS: Intervals: Rate: 93 MO: 136 QRSD: 68 QT: 358 QTc: 445 [place]: P: 76 MO: 136 QRS: 63 T: 79 INTERPRETIVE STATEMENTS: Normal sinus rhythm Normal ECG Compared to ECG 10/26/2009 01:37:25 No significant changes Electronically Signed On 10-21-22 17:34:09 CDT by Rickey Kilgore
== END 2022-10-20 14:27 | disposition home or self-care (01) ==
LOC: ER 10:39
DX: J44.1 Chronic obstructive pulmonary disease with (acute) exacerbation (principal); I10 Essential (primary) hypertension; Z72.0 Tobacco use; Z88.5 Allergy status to narcotic agent
CPT/HCPCS: 96361; 93005; 87040 ×2; 85025; 80048; 36415; 85610; 85730; 84484; 83880; 87804 ×2; 71045; 96374; 99285; J7614; J2930; J7030

== ENCOUNTER 2024-05-01 12:19 | Emergency (ER) | payer OTHER, SELFPAY ==
--- OUTSIDE RECORDS SUMMARY | 2024-05-01 12:24 | XMS REPORT | Continuity of Care Document ---
Author Name Unknown Address [address] [facility] [place] [address] [facility] thconnect Address [address] [facility] [place] [address] Care Team Providers Care Film Or Videotape Editor Name Role Phone Awilda Alatorre Attending Clinician Unavailable Lucy Escobedo Attending Clinician Unavailable Payers Payer Name Policy Type Policy Number Effective Date Expirati on Date Source [facility] 53 [id number] 2019 00:00:00 [facility] [place] Problems Condition Name Condition Details Condition Category Status Onset Date Resolution Date Last Treatment Date Treating Clinician Comments Source [id number] Primary insomnia Problem [facility] Current smoker Current smoker Problem [facility] [id number] Depression with anxiety Problem [facility] [id number] Abnormal renal function test Problem [facility] [id number] Asthma, unspecifie d asthma severity, unspecifie d whether complicate d, unspecifie d whether persistent Problem [facility] [id number] Restless legs syndrome Problem [facility] [id number] Essential hypertensi on Problem [facility] [id number] Overweight (BMI 25.0-29.9) Problem [facility] Bipolar disorder Bipolar disorder Problem [facility] [id number] Prediabete s Problem [facility] [id number] Electrolyt e abnormalit y Problem [facility] [id number] Abnormal CBC Problem [facility] [id number] Acquired hypothyroi dism Problem [facility] [id number] Tobacco use Problem [facility] Allergies, Adverse Reactions, Alerts Allergy Name Allergy Type Status Severity Reaction(s) Onset Date Inactive Date Treating Clinician Comments Source codeine codeine Active Unknown [facility] Social History Social Habit Start Date Stop Date Quantity Comments Source History of Tobacco Use Current Smoker [facility] Sex Assigned At [facility] Smoking Status Start Date Stop Date Source Current Smoker 2024-03-07 00:00:00 [facility] Never Smoker [facility] Medications Ordered Medication Name Filled Medication Name Start Date Stop Date Current Medication? Ordering Clinician Indication Dosage Frequency Signature (SIG) Comments Components Source Levothyroxi ne Sodium 25 MCG Levothyroxi ne Sodium 25 MCG 2023-03 00:00: 00 No QD Levothyrox ine Sodium 25 MCG ARIPiprazol e 10 MG ARIPiprazol e 10 MG 2022-03 00:00: 00 No 1{table t} QD ARIPiprazo le 10 MG Nicotine 21 MG/24HR Nicotine 21 MG/24HR 08-03 00:00: 00 No 1{patch _to_ski n} QD Nicotine 21 MG/24HR Losartan Potassium 50 MG Losartan Potassium 50 MG No 1{table t} QD Losartan Potassium 50 MG Metoprolol Tartrate 50 MG Metoprolol Tartrate 50 MG No 1{table t_with_ food} BID Metoprolol Tartrate 50 MG Sertraline HCl 100 MG Sertraline HCl 100 MG No QD Sertraline HCl 100 MG amLODIPine Besylate 10 MG amLODIPine Besylate 10 MG No 1{table t} QD amLODIPine Besylate 10 MG busPIRone HCl 10 MG busPIRone HCl 10 MG No 1{table t} BID busPIRone HCl 10 MG QUEtiapine Fumarate 100 MG QUEtiapine Fumarate 100 MG No 1{table t} QD QUEtiapine Fumarate 100 MG Advair Diskus 250-50 MCG/ACT Advair Diskus 250-50 MCG/ACT No 1{puff} BID Advair Diskus 250-50 MCG/ACT Albuterol Sulfate HFA 108 (90 Base) MCG/ACT Albuterol Sulfate HFA 108 (90 Base) MCG/ACT No 1{puff_ as_need ed} 6xD Albuterol Sulfate HFA 108 (90 Base) MCG/ACT rOPINIRole HCl 0.5 MG rOPINIRole HCl 0.5 MG No QD rOPINIRole HCl 0.5 MG Immunizations Ordered Immunization Name Filled Immunization Name Date Status Comments Source Flucelvax - single dose syringe Flucelvax - single dose syringe 2019-01-13 14:55:00 Completed [facility] [place] Flucelvax - single dose syringe Flucelvax - single dose syringe 2019-01-13 14:55:00 Completed [facility] [place] Flucelvax - single dose syringe Flucelvax - single dose syringe 2019-01-13 14:55:00 Completed [facility] [place] Flucelvax - single dose syringe Flucelvax - single dose syringe 2019-01-13 14:55:00 Completed [facility] [place] Flucelvax - single dose syringe Flucelvax - single dose syringe 2019-01-13 14:55:00 Completed [facility] [place] Flucelvax - single dose syringe Flucelvax - single dose syringe 2019-01-13 14:55:00 Completed [facility] [place] Flucelvax - single dose syringe Flucelvax - single dose syringe 2019-01-13 00:00:00 Completed [facility] [place] Flucelvax - single dose syringe Flucelvax - single dose syringe Unknown Completed [facility] [place] Flucelvax - single dose syringe Flucelvax - single dose syringe Unknown Completed [facility] [place] Flucelvax - single dose syringe Flucelvax - single dose syringe Unknown Completed [facility] [place] Flucelvax - single dose syringe Flucelvax - single dose syringe Unknown Completed [facility] [place] Flucelvax (ccIIV4) - SDS - 0.5mL Flucelvax (ccIIV4) - SDS - 0.5mL Unknown Completed [facility] Flucelvax (ccIIV4) - SDS - 0.5mL Flucelvax (ccIIV4) - SDS - 0.5mL Unknown Completed [facility] [place] Flucelvax (ccIIV4) - SDS - 0.5mL Flucelvax (ccIIV4) - SDS - 0.5mL Unknown Completed [facility] [place] Flucelvax (ccIIV4) - SDS - 0.5mL Flucelvax (ccIIV4) - SDS - 0.5mL Unknown Completed [facility] [place] Flucelvax (ccIIV4) - SDS - 0.5mL Flucelvax (ccIIV4) - SDS - 0.5mL Unknown Completed [facility] [place] Flucelvax (ccIIV4) - SDS - 0.5mL Flucelvax (ccIIV4) - SDS - 0.5mL Unknown Completed [facility] [place] Flucelvax (ccIIV4) - SDS - 0.5mL Flucelvax (ccIIV4) - SDS - 0.5mL Unknown Completed [facility] [place] Flucelvax (ccIIV4) - SDS - 0.5mL Flucelvax (ccIIV4) - SDS - 0.5mL Unknown Completed [facility] [place] Flucelvax (ccIIV4) - SDS - 0.5mL Flucelvax (ccIIV4) - SDS - 0.5mL Unknown Completed [facility] Flucelvax (ccIIV4) - SDS - 0.5mL Flucelvax (ccIIV4) - SDS - 0.5mL Unknown Completed [facility] Fluarix (IIV3) - SDS - 0.5mL Fluarix (IIV3) - SDS - 0.5mL Unknown Completed [facility] [place] Vital Signs Vital Name Observation Time Observation Value Comments S ource height 2024-03-07 10:00:00 62.00 [in_i] Com [facility] weight 2024-03-07 10:00:00 169.4 [facility] 2024-03-07 10:00:00 97.4 [degF] Com [facility] bmi 2024-03-07 10:00:00 30.98 kg/m2 Comm on [facility] oximetry 2024-03-07 10:00:00 95 % Commo n [facility] respiratory rate 2024-03-07 10:00:00 16 /min Common [facility] blood pressure systolic 2024-03-07 10:00:00 135 mm[Hg] Common [facility] blood pressure diastolic 2024-03-07 10:00:00 76 mm[Hg] [facility] height 2023-12-07 08:20:00 62.00 [in_i] Com [facility] weight 2023-12-07 08:20:00 175.4 [lb_av] [facility] 2023-12-07 08:20:00 97.8 [degF] Com [facility] bmi 2023-12-07 08:20:00 32.08 kg/m2 Comm on [facility] oximetry 2023-12-07 08:20:00 96 % Commo n [facility] respiratory rate 2023-12-07 08:20:00 16 /min Common [facility] blood pressure systolic 2023-12-07 08:20:00 120 mm[Hg] [facility] blood pressure diastolic 2023-12-07 08:20:00 82 mm[Hg] [facility] height 2023-12-07 08:20:00 62.00 [in_i] Com [facility] weight 2023-12-07 08:20:00 175.4 [lb_av] Co mmon [facility] temperature 2023-12-07 08:20:00 97.8 [degF] Com [facility] bmi 2023-12-07 08:20:00 32.08 kg/m2 Comm on [facility] oximetry 2023-12-07 08:20:00 96 % Commo n [facility] respiratory rate 2023-12-07 08:20:00 16 /min Common [facility] blood pressure systolic 2023-12-07 08:20:00 120 mm[Hg] [facility] blood pressure diastolic 2023-12-07 08:20:00 82 mm[Hg] [facility] height 2023-09-06 08:20:00 62.00 [in_i] Com [facility] weight 2023-09-06 08:20:00 173.8 [lb_av] Co mmon [facility] temperature 2023-09-06 08:20:00 97.3 [degF] Com [facility] bmi 2023-09-06 08:20:00 31.78 kg/m2 Comm on [facility] oximetry 2023-09-06 08:20:00 90 % Commo n [facility] respiratory rate 2023-09-06 08:20:00 16 /min Common [facility] blood pressure systolic 2023-09-06 08:20:00 132 mm[Hg] [facility] blood pressure diastolic 2023-09-06 08:20:00 79 mm[Hg] [facility] height 2023-03-17 14:20:00 62.00 [in_i] Com [facility] weight 2023-03-17 14:20:00 170.0 [lb_av] Co [facility] temperature 2023-03-17 14:20:00 98.2 [degF] Com [facility] bmi 2023-03-17 14:20:00 31.09 kg/m2 Comm on [facility] oximetry 2023-03-17 14:20:00 95 % Commo n [facility] respiratory rate 2023-03-17 14:20:00 15 /min [facility] blood pressure systolic 2023-03-17 14:20:00 106 mm[Hg] [facility] blood pressure diastolic 2023-03-17 14:20:00 71 mm[Hg] [facility] height 2023-02-03 13:00:00 62.00 [in_i] Com [facility] weight 2023-02-03 13:00:00 168.2 [lb_av] Co [facility] temperature 2023-02-03 13:00:00 97.9 [degF] Com [facility] bmi 2023-02-03 13:00:00 30.76 kg/m2 Comm on [facility] oximetry 2023-02-03 13:00:00 92 % Commo n [facility] respiratory rate 2023-02-03 13:00:00 18 /min [facility] blood pressure systolic 2023-02-03 13:00:00 135 mm[Hg] [facility] blood pressure diastolic 2023-02-03 13:00:00 85 mm[Hg] Common [facility] height 2022-11-03 13:40:00 62.00 [in_i] Com [facility] weight 2022-11-03 13:40:00 171.2 [lb_av] Co mmon [facility] temperature 2022-11-03 13:40:00 98.0 [degF] Com [facility] bmi 2022-11-03 13:40:00 31.31 kg/m2 Comm on [facility] oximetry 2022-11-03 13:40:00 94 % Commo n [facility] respiratory rate 2022-11-03 13:40:00 16 /min Common [facility] blood pressure systolic 2022-11-03 13:40:00 116 mm[Hg] [facility] blood pressure diastolic 2022-11-03 13:40:00 79 mm[Hg] [facility] height 2022-05-04 10:40:00 62.00 [in_i] Com [facility] weight 2022-05-04 10:40:00 172.6 [lb_av] [facility] 2022-05-04 10:40:00 97.4 [degF] Com [facility] bmi 2022-05-04 10:40:00 31.57 kg/m2 Comm on [facility] oximetry 2022-05-04 10:40:00 96 % Commo n [facility] respiratory rate 2022-05-04 10:40:00 16 /min [facility] blood pressure systolic 2022-05-04 10:40:00 128 mm[Hg] [facility] blood pressure diastolic 2022-05-04 10:40:00 72 mm[Hg] [facility] height 2022-01-29 11:40:00 62.00 [in_i] Com [facility] weight 2022-01-29 11:40:00 168.2 [lb_av] Co mmon [facility] temperature 2022-01-29 11:40:00 97.6 [degF] Com [facility] bmi 2022-01-29 11:40:00 30.76 kg/m2 Comm on [facility] oximetry 2022-01-29 11:40:00 95 % Commo n [facility] respiratory rate 2022-01-29 11:40:00 17 /min [facility] blood pressure systolic 2022-01-29 11:40:00 124 mm[Hg] [facility] blood pressure diastolic 2022-01-29 11:40:00 76 mm[Hg] [facility] height 2021-10-21 10:00:00 62.00 [in_i] Com [facility] weight 2021-10-21 10:00:00 159.4 [lb_av] Co mmon [facility] temperature 2021-10-21 10:00:00 97.0 [degF] Com [facility] bmi 2021-10-21 10:00:00 29.15 kg/m2 Comm on [facility] oximetry 2021-10-21 10:00:00 94 % Commo n [facility] respiratory rate 2021-10-21 10:00:00 18 /min [facility] blood pressure systolic 2021-10-21 10:00:00 116 mm[Hg] [facility] blood pressure diastolic 2021-10-21 10:00:00 71 mm[Hg] [facility] height 2021-07-15 14:20:00 62.00 [in_i] Com [facility] weight 2021-07-15 14:20:00 160 [lb_av] Comm on [facility] bmi 2021-07-15 14:20:00 29.26 kg/m2 Comm on [facility] height 2021-04-16 10:40:00 62.00 [in_i] Com [facility] weight 2021-04-16 10:40:00 160 [lb_av] Comm on [facility] bmi 2021-04-16 10:40:00 29.26 kg/m2 Comm on [facility] height 2021-03-26 10:20:00 62.00 [in_i] Com [facility] weight 2021-03-26 10:20:00 160 [lb_av] Comm on [facility] bmi 2021-03-26 10:20:00 29.26 kg/m2 Comm on [facility] height 2021-03-06 08:00:00 62.00 [in_i] Com [facility] weight 2021-03-06 08:00:00 160 [lb_av] Comm on [facility] bmi 2021-03-06 08:00:00 29.26 kg/m2 Comm on [facility] height 2021-02-18 13:00:00 62.00 [in_i] Com [facility] weight 2021-02-18 13:00:00 160 [lb_av] Comm on [facility] bmi 2021-02-18 13:00:00 29.26 kg/m2 Comm on [facility] blood pressure diastolic 2021-01-20 10:40:00 84 mm[Hg] Common [facility] height 2021-01-20 10:40:00 62.00 [in_i] Com [facility] weight 2021-01-20 10:40:00 159 [lb_av] Comm on [facility] temperature 2021-01-20 10:40:00 97.7 [degF] Com [facility] bmi 2021-01-20 10:40:00 29.08 kg/m2 Comm on [facility] oximetry 2021-01-20 10:40:00 95 % Commo n [facility] respiratory rate 2021-01-20 10:40:00 18 /min Common [facility] blood pressure systolic 2021-01-20 10:40:00 132 mm[Hg] Common [facility] height 2020-12-23 10:20:00 62.00 [in_i] Com [facility] weight 2020-12-23 10:20:00 158.4 [lb_av] Co mmon [facility] temperature 2020-12-23 10:20:00 97.0 [degF] Com mon [facility] bmi 2020-12-23 10:20:00 28.97 kg/m2 Comm on [facility] oximetry 2020-12-23 10:20:00 96 % Commo n [facility] respiratory rate 2020-12-23 10:20:00 20 /min [facility] [place] Encounters Start Date/Time End Date/Time Encounter Type Admission Type Attending [facility] Facility Care Department Encounter ID Source 2023-09-06 08:16:00 Outpatient Awilda Alatorre STMIKI ST[facility] [id number] [facility] 2023-02-02 15:57:00 Outpatient WareAwilda aguilar STLC ST[facility] [id number] [facility] 2022-05-25 08:58:00 Outpatient WareAwilda aguilar STLC STLC [id number] [facility] 2022-04-29 13:40:00 Outpatient Awilda Alatorre STLC STLC [id number] [facility] 2022-01-28 07:34:00 Outpatient Awilda Alatorre STLC STLC [id number] [facility] 2022-01-21 15:46:00 Outpatient WareAwilda aguilar STLC STLMLC [id number] [facility] 2022-01-20 07:51:00 Outpatient Awilda Alatorre STLC STLMLC [id number] [facility] 2021-10-21 09:54:00 Outpatient LandryAwilda STLC STLMLC [id number] [facility] 2021-04-16 14:39:14 Outpatient Landry Awilda STLC STLMLC [id number] [facility] 2021-04-16 14:31:06 Outpatient WareAwilda aguilar STLC STLMLC [id number] [facility] 2021-04-16 14:25:23 Outpatient Awilda Alatorre STLMLC STLMLC [id number] [facility] 2021-04-16 14:12:59 Outpatient Awilda Alatorre STLMLC STLMLC [id number] [facility] 2021-04-16 12:20:08 Outpatient Awilda Alatorre STLMLC STLMLC [id number] [facility] 2021-04-16 12:16:05 Outpatient Awilda Alatorre STLMLC STLMLC [id number] [facility] 2021-04-16 12:15:10 Outpatient STLMLC STLMLC [id number] [facility] 2021-04-16 11:40:31 Outpatient Lucy Escobedo STLMLC STLMLC [id number] [facility] 2024-03-07 00:00:00 2024-03-07 00:00:00 OFFICE VISIT ESTAB PT LEVEL 4 STLMLC STLMLC [id number] [facility] 2023-12-07 00:00:00 2023-12-07 00:00:00 OFFICE VISIT ESTAB PT LEVEL 4 STLMLC STLMLC [id number] [facility] [place] 2023-09-20 00:00:00 2023-09-20 00:00:00 (TEL) STLMLC STLMLC [id number] [facility] [place] 2023-09-09 00:00:00 2023-09-09 00:00:00 (TEL) STLMLC STLMLC [id number] [facility] [place] 2023-09-06 00:00:00 2023-09-06 00:00:00 OFFICE VISIT ESTAB PT LEVEL 4 STLMLC STLMLC [id number] [facility] [place] 2023-08-04 00:00:00 2023-08-04 00:00:00 (TEL) STLMLC STLMLC [id number] [facility] [place] 2023-06-17 00:00:00 2023-06-17 00:00:00 (TEL) STLMLC STLMLC [id number] [facility] [place] 2023-03-18 00:00:00 2023-03-18 00:00:00 (TEL) STLMLC STLMLC [id number] [facility] [place] 2023-03-17 00:00:00 2023-03-17 00:00:00 OFFICE VISIT ESTAB PT LEVEL 4 STLMLC STLMLC [id number] [facility] [place] 2023-02-04 00:00:00 2023-02-04 00:00:00 (TEL) STLMLC STLMLC [id number] [facility] [place] 2023-02-03 00:00:00 2023-02-03 00:00:00 OFFICE VISIT ESTAB PT LEVEL 3 STLMLC STLMLC [id number] [facility] [place] 2022-12-28 00:00:00 2022-12-28 00:00:00 (TEL) STLMLC STLMLC [id number] [facility] [place] 2022-11-03 00:00:00 2022-11-03 00:00:00 OFFICE VISIT ESTAB PT LEVEL 3 STLMLC STLMLC [id number] [facility] 2022-10-20 00:00:00 2022-10-20 00:00:00 (TEL) STLMLC STLMLC [id number] [facility] [place] 2022-08-04 00:00:00 2022-08-04 00:00:00 (TEL) STLMLC STLMLC [id number] [facility] [place] 2022-06-02 00:00:00 2022-06-02 00:00:00 (TEL) STLMLC STLMLC [id number] [facility] 2022-05-27 00:00:00 2022-05-27 00:00:00 (TEL) STLMLC STLMLC [id number] [facility] 2022-05-04 00:00:00 2022-05-04 00:00:00 OFFICE VISIT ESTAB PT LEVEL 4 STLMLC STLMLC [id number] [facility] [place] 2022-02-17 00:00:00 2022-02-17 00:00:00 (TEL) STLMLC STLMLC [id number] [facility] [place] 2022-01-29 00:00:00 2022-01-29 00:00:00 OFFICE VISIT EST PT LEVEL 3 STLMLC STLMLC [id number] [facility] [place] 2021-10-21 00:00:00 2021-10-21 00:00:00 OFFICE VISIT EST PT LEVEL 3 STLMLC STLMLC [id number] [facility] 2021-10-14 00:00:00 2021-10-14 00:00:00 (TEL) STLMLC STLMLC [id number] [facility] [place] 2021-07-15 00:00:00 2021-07-15 00:00:00 OFFICE VISIT EST PT LEVEL 3 STLMLC STLMLC [id number] [facility] 2021-06-13 00:00:00 2021-06-13 00:00:00 (TEL) STLMLC STLMLC [id number] [facility] 2021-04-16 00:00:00 2021-04-16 00:00:00 OFFICE VISIT EST PT LEVEL 3 STLMLC STLMLC [id number] [facility] 2021-04-16 00:00:00 2021-04-16 00:00:00 (TEL) STLMLC STLMLC [id number] [facility] 2021-04-14 00:00:00 2021-04-14 00:00:00 (TEL) STLMLC STLMLC [id number] [facility] 2021-03-26 00:00:00 2021-03-26 00:00:00 OL DIG E/M SVC 11-20 MIN STLMLC STLMLC [id number] [facility] 2021-03-19 00:00:00 2021-03-19 00:00:00 (TEL) STLMLC STLMLC [id number] [facility] 2021-03-06 00:00:00 2021-03-06 00:00:00 OFFICE VISIT EST PT LEVEL 3 STLMLC STLMLC [id number] [facility] 2021-02-25 00:00:00 2021-02-25 00:00:00 (TEL) STLMLC STLMLC [id number] [facility] 2021-02-18 00:00:00 2021-02-18 00:00:00 OFFICE VISIT EST PT LEVEL 3 STLMLC STLMLC [id number] [facility] [place] 2021-01-20 00:00:00 2021-01-20 00:00:00 OFFICE VISIT EST PT LEVEL 3 STLMLC STLMLC [id number] [facility] 2020-12-23 00:00:00 2020-12-23 00:00:00 OFFICE VISIT ESTAB PT LEVEL 4 STLMLC STLMLC [id number] [facility] 2020-10-07 00:00:00 2020-10-07 00:00:00 Outpatient STLMLC STLMLC [id number] [facility] 2020-10-02 00:00:00 2020-10-02 00:00:00 Outpatient STLMLC STLMLC [id number] [facility] 2020-09-13 00:00:00 2020-09-13 00:00:00 Outpatient STLMLC STLMLC [id number] [facility] 2020-08-16 00:00:00 2020-08-16 00:00:00 Outpatient STLMLC STLMLC [id number] [facility] 2020-06-27 00:00:00 2020-06-27 00:00:00 Outpatient STLMLC STLMLC [id number] [facility] 2020-06-20 00:00:00 2020-06-20 00:00:00 Outpatient STLMLC STLMLC [id number] [facility] 2020-04-04 00:00:00 2020-04-04 00:00:00 Outpatient STLMLC STLMLC [id number] [facility] 2020-03-08 00:00:00 2020-03-08 00:00:00 Outpatient STLMLC STLMLC [id number] [facility] 2020-03-06 00:00:00 2020-03-06 00:00:00 Outpatient STLMLC STLMLC [id number] [facility] 2019-11-14 15:20:00 2019-11-14 15:20:[address] [facility] [id number] [facility] 2019-10-05 11:34:00 2019-10-05 11:34:00 [facility] [id number] [facility] 2019-10-05 10:45:00 2019-10-05 10:45:00 [facility] [id number] [facility] 2019-02-06 21:16:00 2019-02-06 21:16:[address] [facility] [id number] [facility] 2019-02-02 13:53:00 2019-02-02 13:53:[address] [facility] [id number] [facility] 2019-01-26 08:40:00 2019-01-26 08:40:00 [facility] [id number] [facility] 2019-01-16 08:36:00 2019-01-16 08:36:00 [facility] [id number] [facility] 2019-01-13 11:00:00 2019-01-13 11:00:00 [facility] [id number] [facility] 2018-12-22 14:47:00 2018-12-22 14:47:00 Outpatient [facility] [id number] [facility] 2018 15:47:00 2018 15:47:00 Outpatient [facility] [id number] [facility] 2018 13:00:00 2018 13:00:00 Outpatient [facility] [id number] [facility] Results Test Description Test Time Test Comments Results Result Co mments Source CULTURE, [id number] 00:00:00* Test Item Value Reference Range Interpretation Comme nts CULTURE, URINE (test code = 630-4) SPECIMEN NUMBER: [id number] 3D SCR MARQUITA BILAT W/CAD3D SCR MARQUITA BILAT W/CAD
[2024-05-01] MEDS ORDERED: ALBUTEROL 2.5 MG/3 ML NEB SOL ONE (12:42)
[2024-05-01] MEDS ORDERED: IPRATROPIUM BROM 0.5MG/2.5ML ONE (12:42)
[2024-05-01 13:04] LABS: Absolute Basophils 0.1 K/uL (0-0.5); Absolute Eosinophils 0.1 K/uL (0-0.5); Absolute Lymphocytes (CBC) 1.7 K/uL (0.7-4.9); Absolute Monocytes 0.9 K/uL (0.1-1.3); Basophils % 0.8 % (0-1.3); Eosinophils % 0.9 % (0-4.4); Hematocrit 42.9 % (36.0-45.0); Hemoglobin 14.5 g/dL (12.0-15.0); Lymphocytes % 17.1 % (15.3-44.8); MCHC 33.8 g/dL (32.0-36.0); MCV 91.7 fL (80-100); MPV 9.9 fL (7.6-11.3); Monocytes % 9.3 % (3.3-12.3); Neutrophils % 71.9 % (41.7-73.7); Nucleated Red Blood Cells % 0.1 % (0-0); Platelets 354 thou/uL (152-406); RBC Red Blood Cell Count 4.68 M/uL (3.86-4.86); Red Cell Distribution Width 14.3 % (12.1-15.2)
[2024-05-01 13:14] LABS: Albumin 2.7 g/dL (3.4-5.0); Albumin/Globulin Ratio 0.6 (1.1-1.8); Anion Gap 9.5 mEq/L (5.0-15.0); Bilirubin Direct 0.2 mg/dL (0-0.2); Bilirubin Indirect, Calculated 0.2 mg/dL (0.2-0.8); Bilirubin Total 0.4 mg/dL (0.2-1.0); Globulin 4.2 g/dL (2.3-3.5); Potassium 3.5 mEq/L (3.5-5.1); Protein, Total 6.9 g/dL (6.4-8.2); Troponin High Sensitivity 6.7 pg/mL (<58.9)
[2024-05-01 14:09] LABS: SARS-CoV-2 Antigen CONTROL BLUE LINE VIS/BG OK; SARS-CoV-2 Antigen Rapid Res Negative (Negative)
--- NOTE | 2024-05-01 14:09 | RAD REPORT ---
EXAM: Chest Single View HISTORY: COUGH COMPARISON: 10/20/2022 FINDINGS: LUNGS/PLEURA: Left upper lobe/hilar mass. Volume loss in the left lung. The right lung is clear. Incr eased interstitial prominence throughout the left lung. MEDIASTINUM: Left hilar fullness/suprahilar mass CARDIAC: The cardiac silhouette is within normal limits. UPPER ABDOMEN: No significant abnormality. BONES: No acute abnormality. LINES/TUBES/OTHER: N/A IMPRESSION: Findings are suspicious for a left upper lobe mass. Recommend further evaluation with chest CT. THIS REPORT CONTAINS FINDINGS THAT MAY BE CRITICAL TO PATIENT CARE. The findings were communicated to Mook Tavarez on 05/01/2024 2:06 PM.
[2024-05-01] MEDS ORDERED: METHYLPREDNISOLONE 125 MG INJ ONE (14:56)
--- NOTE | 2024-05-01 15:13 | RAD REPORT ---
Thorax W/ Con CLINICAL INDICATION: Female, 63 years old. mass TECHNIQUE: Routine CT scan of the chest with intravenous contrast. One or more of the following dose reduction techniques were used: Automated exposure control, adjustment of the mA and/or kV according to patient size, and/or iterative reconstruction. Unless otherwise specified, incidental fi ndings do not require dedicated imaging follow-up. [id number]. COMPARISON: Same-day chest x-ray FINDINGS: LOWER NECK: Visualized thyroid gland and soft tissues are normal. LUNGS AND AIRWAYS: 6.1 x 6.8 x 7 cm mass in the left upper lobe which extends into the mediastinum an d involves the left hilum.Intralobular septal thickening is present peripherally. Mild areas of consolidation present in the medial left upper lobe anteriorly. PLEURA: No pleural effusion. No pneumothorax. Hemidiaphragms are normally positioned. MEDIASTINUM AND LYMPH NODES: The left upper lobe mass extends into the mediastinum at the AP window r egion and left hilum. Mild distal esophageal thickening. Small hiatal hernia. THORACIC AORTA: No thoracic aortic aneurysm. PULMONARY ARTERIES: Caliber is within normal limits. HEART: Normal heart size. No coronary calcifications.No significant pericardial effusion. OSSEOUS STRUCTURES AND CHEST WALL: Multilevel degenerative changes. No acute fracture. UPPER ABDOMEN: 3.1 cm left adrenal mass which is indeterminate.. Hepatic steatosis. IMPRESSION: Large mass in the left upper lobe with direct mediastinal and hilar extension consistent with a lung primary. Indeterminate 3.1 cm left adrenal mass suspicious for metastatic disease. The thoracic mass would be amenable to bronchoscopic sampling. The left adrenal lesion would be amenable to percut aneous biopsy but would suggest prebiopsy PET/CT to confirm hypermetabolic.
--- NOTE | 2024-05-01 15:27 | EDPHYS ---
Physician Documentation [facility] Name: Edda Stockton Age: 63 yrs Sex: Female : 1960 Arrival Date: 05/01/2024 Time: 12:19 Bed 20 Private MD: ED Physician Oj Delvalle HPI: 05/01 12:51 This 63 yrs old Female presents to ER via Wheelchair with complaints of Breathing rt Difficulty. 12:51 Patient with history of asthma and COPD presents to the ED with cough, congestion, rt progressive worsening breathing difficulty for the past week. States that the symptoms have worsened today. Denies other acute complaints at this time, symptoms are moderate in severity, no other aggravating or alleviating factors.. Historical: - Allergies: 12:22 Codeine; iw - PMHx: 12:22 Bipolar disorder; Asthma; Hypertension; COPD; iw - Immunization history:: Adult Immunizations up to date. - Infectious Disease History:: Denies. - Social history:: Smoking status: Patient reports the use of cigarette tobacco products, smokes one pack cigarettes per day. - Family history:: not pertinent. ROS: 12:55 Constitutional: Negative for fever, chills, and weight loss, Cardiovascular: Negative rt for chest pain, palpitations, and edema, Abdomen/GI: Negative for abdominal pain, nausea, vomiting, diarrhea, and constipation, MS/Extremity: Negative for injury and deformity, Skin: Negative for injury, rash, and discoloration, Neuro: Negative for headache, weakness, numbness, tingling, and seizure, 12:55 Respiratory: Positive for cough, shortness of breath, Exam: 12:55 Constitutional: This is a well developed, well nourished patient who is awake, alert, rt and in no acute distress. Head/Face: Normocephalic, atraumatic. Chest/axilla: Normal chest wall appearance and motion. Nontender with no deformity. No lesions are appreciated. Cardiovascular: Regular rate and rhythm with a normal S1 and S2. No gallops, murmurs, or rubs. Normal PMI, no JVD. No pulse deficits. Abdomen/GI: Soft, non-tender, with normal bowel sounds. No distension or tympany. No guarding or rebound. No evidence of tenderness throughout. Skin: Warm, dry with normal turgor. Normal color with no rashes, no lesions, and no evidence of cellulitis. MS/ Extremity: Pulses equal, no cyanosis. Neurovascular intact. Full, normal range of motion. 12:55 ECG was reviewed by the Attending Physician. 12:55 Respiratory: Wheezes heard on all lung pantoja, mild respiratory distress, Vital Signs: 12:21 BP 128 / 87; Pulse 111; Resp 24; Temp 98.4; Pulse Ox 93% on R/A; Weight 72.57 kg; iw Height 5 ft. 3 in. ; 15:16 BP 120 / 85; Pulse 99; Resp 20; Pulse Ox 93% ; bp 12:21 Body Mass Index 28.34 (72.57 kg, 160.02 cm) iw MDM: 12:23 Medical Screening Exam initiated rt 17:31 Differential diagnosis: CHF, COPD, bronchospasm, asthma, pneumonia, viral syndrome. rt Data reviewed: vital signs, nurses notes, lab test result(s), EKG, radiologic studies. Consideration of Admission/Observation Escalation of care including admission/observation considered. I considered the following discharge prescriptions or medication management in the emergency department Medications were administered in the Emergency Department. See MAR. Independent interpretation of the following test(s) in the Emergency Department CT Scan: My interpretation is Lung mass seen on my interpretation of CT scan images. Test considered but Not performed: CT: Do not suspect pulmonary embolus, CT angiogram not indicated. Care significantly affected by the following chronic conditions: Chronic Obstructive Pulmonary Disease. Counseling: I had a detailed discussion with the patient and/or guardian regarding the historical points, exam findings, and any diagnostic results supporting the discharge/admit diagnosis, lab results, the need for outpatient follow up, Instructed patient to follow-up with pulmonology for biopsy as well as oncologist. Response to treatment: the patient's symptoms have markedly improved after treatment. 05/01 12:35 Order name: Basic Metabolic Panel; Complete Time: 14:11 rt 05/01 12:35 Order name: CBC with Diff; Complete Time: 14:11 rt 05/01 12:35 Order name: LFT's; Complete Time: 14:11 rt 05/01 12:35 Order name: NT PRO-BNP; Complete Time: 14:11 rt 05/01 12:35 Order name: Troponin HS; Complete Time: 14:11 rt 05/01 12:52 Order name: Influenza Screen (a \T\ B); Complete Time: 14:11 rt 05/01 12:52 Order name: SARS RAPID; Complete Time: 14:11 rt 05/01 12:35 Order name: XRAY Chest (1 view); Complete Time: 14:11 rt 05/01 14:39 Order name: CT Chest W/ Con; Complete Time: 15:14 rt 05/01 12:35 Order name: EKG; Complete Time: 12:35 rt 05/01 12:35 Order name: Cardiac monitoring; Complete Time: 13:02 rt 05/01 12:35 Order name: EKG - Nurse/Tech; Complete Time: 12:54 rt 05/01 12:35 Order name: IV Saline Lock; Complete Time: 12:44 rt 05/01 12:35 Order name: Labs collected and sent; Complete Time: 12:54 rt 05/01 12:35 Order name: O2 Per Protocol; Complete Time: 12:44 rt 05/01 12:35 Order name: O2 Sat Monitoring; Complete Time: 12:44 rt EC:55 Rate is 102 beats/min. Rhythm is regular, Sinus tachycardia with No ectopy. QRS [place] is rt Normal. [place] interval is normal. QRS interval is normal. QT interval is normal. No Q waves. No ST changes noted. Interpreted by me. Administered Medications: 12:45 Drug: Albuterol Inhalation 2.5 mg Inhalation once Route: Inhalation; me1 12:45 Drug: Ipratropium Inhalation Aerosol 0.5 mg Inhalation once Route: Inhalation; me1 15:13 Drug: MethylPrednisoLONE IVP 125 mg IVP once Route: IVP; Site: right forearm; bp 15:14 Follow up: Response: No adverse reaction bp Disposition Summary: 05/01/24 15:26 Discharge Ordered Notes: Location: Home rt Problem: new rt Symptoms: have improved rt Condition: Stable rt Diagnosis - Influenza due to identified novel influenza A virus rt - COPD/ Chronic obstructive pulmonary disease, unspecified rt - Lung mass rt Followup: rt - With: Aftab Lofton MD - When: 2 - 3 days - Reason: Followup: rt - With: Negrita Dey MD - When: 2 - 3 days - Reason: Discharge Instructions: - Discharge Summary Sheet rt - Influenza, Adult, [place] rt - Lung Mass rt Forms: - Medication Reconciliation Form rt - Antibiotic Education rt - Prescription Opioid Use rt - Patient Portal Instructions rt - Leadership Thank You Letter rt Prescriptions: - Prednisone 20 mg Oral Tablet - take 2 tablets ORAL route once daily for 5 days; 10 tablet; Refills: 0, Product rt Selection Permitted Signatures: Dispatcher [employer] EDMS Alicia Saravia, SHEN RN iw James Moreland RN RN bp Oj Delvalle MD MD rt Xenia Hairston RN RN me1 Corrections: (The following items were deleted from the chart) 12:52 12:52 Influenza Screen (A \T\ B)+BA.LAB.BRZ ordered. EDMS EDMS 12:52 12:52 SARS-COV-2 Antigen Rapid+I.LAB.BRZ ordered. EDMS EDMS 14:39 14:39 Thorax W/ Con+CT.RAD.BRZ ordered. EDMS EDMS
--- NOTE | 2024-05-01 15:27 | ER ---
Nurse's Notes [facility] Name: Edda Stockton Age: 63 yrs Sex: Female : 1960 Arrival Date: 05/01/2024 Time: 12:19 Bed 20 Private MD: Diagnosis: Influenza due to identified novel influenza A virus;COPD/ Chronic obstructive pulmonary disease, unspecified;Lung mass Presentation: 05/01 12:21 Chief complaint: Patient states: breathing difficulty X 1 week, worse this weekend, she iw had fever and chills , hx of COPD. Coronavirus screen: Client presents with at least one sign or symptom that may indicate coronavirus-19. Ebola Screen: No symptoms or risks identified at this time. Initial Sepsis Screen: Does the patient meet any 2 criteria? RR > 20 per min. HR > 90 bpm. Does the patient have a suspected source of infection?. Risk Assessment: Do you want to hurt yourself or someone else? Patient reports no desire to harm self or others. Onset of symptoms was April 24, 2024. 12:21 Method Of Arrival: Wheelchair iw 12:21 Acuity: OSCAR 2 iw Triage Assessment: 12:30 General: Appears distressed, comfortable, Behavior is cooperative, appropriate for age, bp anxious. Pain: Denies pain. EENT: No deficits noted. Neuro: No deficits noted. Cardiovascular: Reports shortness of breath. Respiratory: Reports shortness of breath Onset: The symptoms/episode began/occurred at an unknown time. the patient has moderate shortness of breath. GI: No signs and/or symptoms were reported involving the gastrointestinal system. : No signs and/or symptoms were reported regarding the genitourinary system. Derm: No deficits noted. Musculoskeletal: No deficits noted. Historical: - Allergies: 12:22 Codeine; iw - PMHx: 12:22 Bipolar disorder; Asthma; Hypertension; COPD; iw - Immunization history:: Adult Immunizations up to date. - Infectious Disease History:: Denies. - Social history:: Smoking status: Patient reports the use of cigarette tobacco products, smokes one pack cigarettes per day. - Family history:: not pertinent. Screenin:45 [facility] ED Fall Risk Assessment (Adult) History of falling in the last 3 months, bp including since admission No falls in past 3 months (0 pts) Confusion or Disorientation No (0 pts) Intoxicated or Sedated No (0 pts) Impaired Gait No (0 pts) Mobility Assist Device Used No (0 pt) Altered Elimination No (0 pt) Score/Fall Risk Level 0 - 2 = Low Risk Oriented to surroundings. Abuse screen: Denies threats or abuse. Denies injuries from another. 16:47 Nutritional screening: No deficits noted. Tuberculosis screening: No symptoms or risk bp factors identified. Assessment: 12:30 General: Appears distressed, comfortable, Behavior is calm, cooperative, appropriate bp for age. 14:00 Reassessment: No changes from previously documented assessment. Patient is alert, bp oriented x 3, equal unlabored respirations, skin warm/dry/pink. Cardiovascular: Rhythm is sinus tachycardia. Respiratory: Airway is patent Respiratory effort is even, unlabored, Breath sounds are coarse Breath sounds with crackles. 15:17 Reassessment: Patient appears in no apparent distress at this time. Patient is alert, bp oriented x 3, equal unlabored respirations, skin warm/dry/pink. Vital Signs: 12:21 BP 128 / 87; Pulse 111; Resp 24; Temp 98.4; Pulse Ox 93% on R/A; Weight 72.57 kg; iw Height 5 ft. 3 in. ; 15:16 BP 120 / 85; Pulse 99; Resp 20; Pulse Ox 93% ; bp 12:21 Body Mass Index 28.34 (72.57 kg, 160.02 cm) iw ED Course: 12:21 Patient arrived in ED. iw 12:21 Oj Delvalle MD is Attending Physician. rt 12:22 Triage completed. iw 12:23 Arm band placed on. iw 12:46 Missed attempt(s): 20 gauge Bleeding controlled, band aid applied, catheter tip intact. td1 12:52 Inserted saline lock: 20 gauge in right forearm, using aseptic technique. Blood td1 collected. Flushed with 10 mL NS. 12:54 Basic Metabolic Panel Sent. td1 12:54 CBC with Diff Sent. td1 12:54 LFT's Sent. td1 12:54 NT PRO-BNP Sent. td1 12:54 Troponin HS Sent. td1 13:02 James Moreland, RN is Primary Nurse. bp 13:53 XRAY Chest (1 view) In Process Unspecified. EDMS 14:17 Patient has correct armband on for positive identification. bp 15:01 CT Chest W/ Con In Process Unspecified. EDMS 15:25 Aftab Lofton MD is Referral Physician. rt 15:25 Negrita Dey MD is Referral Physician. rt 16:47 No provider procedures requiring assistance completed. IV discontinued, intact, bp bleeding controlled, No redness/swelling at site. Pressure dressing applied. Administered Medications: 12:45 Drug: Albuterol Inhalation 2.5 mg Inhalation once Route: Inhalation; me1 12:45 Drug: Ipratropium Inhalation Aerosol 0.5 mg Inhalation once Route: Inhalation; me1 15:13 Drug: MethylPrednisoLONE IVP 125 mg IVP once Route: IVP; Site: right forearm; bp 15:14 Follow up: Response: No adverse reaction bp Medication: 16:47 VIS not applicable for this client. bp Outcome: 15:26 Discharge ordered by MD. rt 16:41 Patient left the ED. iw 16:47 Discharged to home bp 16:47 Condition: stable 16:47 Discharge instructions given to patient, Instructed on discharge instructions, follow up and referral plans. Demonstrated understanding of instructions, follow-up care, Signatures: Dispatcher [employer] EDNC Alicia Saravia RN RN iw James Moreland RN RN bp Oj Delvalle MD MD rt Xenia Hairston RN RN me1 John Cunha td1 Corrections: (The following items were deleted from the chart) 14:15 14:13 General: Appears distressed, comfortable, Behavior is calm, cooperative, bp appropriate for age, bp
[2024-05-01 18:07] VITALS: BP 120/85; O2SAT 93
[2024-05-01 18:09] VITALS: TEMP 98.4
--- NOTE | 2024-05-02 12:43 | EKG ---
Test Date: 2024-05-01 Test Time: 12:51:13 Laydown Machine Operator: BONIFACIO MEASUREMENT RESULTS: Intervals: Rate: 102 ME: 130 QRSD: 66 QT: 326 QTc: 424 Model: P: 73 ME: 130 QRS: 62 T: 71 INTERPRETIVE STATEMENTS: Sinus tachycardia Cannot rule out Anterior infarct, age undetermined Abnormal ECG Compared to ECG 10/20/2022 11:41:44 Myocardial infarct finding now present Sinus rhythm no longer present Electronically Signed On 05-02-24 12:41:26 MITIGATION SUPERVISOR by Giovanni Mccoy
== END 2024-05-01 16:41 | disposition home or self-care (01) ==
LOC: ER 12:19
DX: J10.1 Influenza due to other identified influenza virus with other respiratory manifestations (principal); J44.9 Chronic obstructive pulmonary disease, unspecified; R91.8 Other nonspecific abnormal finding of lung field; Z11.52 Encounter for screening for COVID-19; F17.210 Nicotine dependence, cigarettes, uncomplicated
CPT/HCPCS: 93005; 85025; 80048; 36415; 80076; 84484; 83880; 87804 ×2; 71260; 71045; 87811; Q9967; J7613; J7644; J2919; 96374; 99284

== ENCOUNTER 2024-05-09 13:37 | Inpatient (IN) | payer MEDICAID, OTHER ==
--- OUTSIDE RECORDS SUMMARY | 2024-05-09 13:40 | XMS REPORT | Continuity of Care Document ---
Author Name Unknown Address [address] [place] [address] [facility] thconnect Address [address] [place] [address] Care Team Providers Care Mussel Farmer Name Role Phone Awilda Alatorre Attending Clinician Unavailable Lucy Escobedo Attending Clinician Unavailable Payers Payer Name Policy Type Policy Number Effective Date Expirati on Date Source [facility] 53 [id number] 2019 00:00:00 [facility] Problems Condition Name Condition Details Condition Category Status Onset Date Resolution Date Last Treatment Date Treating Clinician Comments Source [id number] Primary insomnia Problem [facility] Current smoker Current smoker Problem [facility] [id number] Depression with anxiety Problem [facility] [id number] Abnormal renal function test Problem [facility] [id number] Asthma, unspecifie d asthma severity, unspecifie d whether complicate d, unspecifie d whether persistent Problem [facility] [id number] Restless legs syndrome Problem [facility] [id number] Essential hypertensi on Problem [facility] [id number] Overweight (BMI 25.0-29.9) Problem [facility] Bipolar disorder Bipolar disorder Problem [facility] [id number] Prediabete s Problem [facility] [id number] Electrolyt e abnormalit y Problem [facility] [id number] Abnormal CBC Problem [facility] [id number] Acquired hypothyroi dism Problem [facility] [id number] Tobacco use Problem [facility] Allergies, Adverse Reactions, Alerts Allergy Name Allergy Type Status Severity Reaction(s) Onset Date Inactive Date Treating Clinician Comments Source codeine codeine Active Unknown [facility] Social History Social Habit Start Date Stop Date Quantity Comments Source History of Tobacco Use Current Smoker [facility] Sex Assigned At [facility] Smoking Status Start Date Stop Date Source Current Smoker 2024-03-07 00:00:00 [facility] Never Smoker [facility] Medications Ordered Medication Name Filled Medication Name [...] - single dose syringe 2019-01-13 14:55:00 Completed [facility] Flucelvax - single dose syringe Flucelvax - single dose syringe 2019-01-13 14:55:00 Completed [facility] Flucelvax - single dose syringe Flucelvax - single dose syringe 2019-01-13 14:55:00 Completed [facility] Flucelvax - single dose syringe Flucelvax - single dose syringe 2019-01-13 14:55:00 Completed [facility] Flucelvax - single dose syringe Flucelvax - single dose syringe 2019-01-13 14:55:00 Completed [facility] Flucelvax - single dose syringe Flucelvax - single dose syringe 2019-01-13 14:55:00 Completed [facility] Flucelvax - single dose syringe Flucelvax - single dose syringe 2019-01-13 00:00:00 Completed [facility] Flucelvax - single dose syringe Flucelvax - single dose syringe Unknown Completed [facility] Flucelvax - single dose syringe Flucelvax - single dose syringe Unknown Completed [facility] Flucelvax - single dose syringe Flucelvax - single dose syringe Unknown Completed [facility] Flucelvax - single dose syringe Flucelvax - single dose syringe Unknown Completed [facility] Flucelvax (ccIIV4) - SDS - 0.5mL Flucelvax (ccIIV4) - SDS - 0.5mL Unknown Completed [facility] Flucelvax (ccIIV4) - SDS - 0.5mL Flucelvax (ccIIV4) - SDS - 0.5mL Unknown Completed [facility] Flucelvax (ccIIV4) - SDS - 0.5mL Flucelvax (ccIIV4) - SDS - 0.5mL Unknown Completed [facility] Flucelvax (ccIIV4) - SDS - 0.5mL Flucelvax (ccIIV4) - SDS - 0.5mL Unknown Completed [facility] Flucelvax (ccIIV4) - SDS - 0.5mL Flucelvax (ccIIV4) - SDS - 0.5mL Unknown Completed [facility] Flucelvax (ccIIV4) - SDS - 0.5mL Flucelvax (ccIIV4) - SDS - 0.5mL Unknown Completed [facility] Flucelvax (ccIIV4) - SDS - 0.5mL Flucelvax (ccIIV4) - SDS - 0.5mL Unknown Completed [facility] Flucelvax (ccIIV4) - SDS - 0.5mL Flucelvax (ccIIV4) - SDS - 0.5mL Unknown Completed [facility] Flucelvax (ccIIV4) - SDS - 0.5mL Flucelvax (ccIIV4) - SDS - 0.5mL Unknown Completed [facility] Flucelvax (ccIIV4) - SDS - 0.5mL Flucelvax (ccIIV4) - SDS - 0.5mL Unknown Completed [facility] Fluarix (IIV3) - SDS - 0.5mL Fluarix (IIV3) - SDS - 0.5mL Unknown Completed [facility] Vital Signs Vital Name Observation Time Observation Value Comments S ource height 2024-03-07 10:00:00 62.00 [in_i] Com [facility] weight 2024-03-07 10:00:00 [facility]4 [facility]24-[facility]-07 10:00:00 97.4 [degF] Com [facility] bmi 2024-03-07 10:00:00 30.98 kg/m2 Comm on [facility] oximetry 2024-03-07 10:00:00 95 % Commo n [facility] respiratory rate 2024-03-07 10:00:00 16 /min Common [facility] blood pressure systolic 2024-03-07 10:00:00 135 mm[Hg] Common [facility] blood pressure diastolic 2024-03-07 10:00:00 76 mm[Hg] [facility] height 2023-12-07 08:20:00 62.00 [in_i] Com [facility] weight 2023-12-07 08:20:00 175.4 [facility]av] [facility] 2023-12-07 08:20:00 97.8 [degF] Com [facility] bmi 2023-12-07 08:20:00 32.08 kg/m2 Comm on [facility] oximetry 2023-12-07 08:20:00 96 % Commo n [facility] respiratory rate 2023-12-07 08:20:00 16 /min Common [facility] blood pressure systolic 2023-12-07 08:20:00 120 mm[Hg] Common [facility] blood pressure diastolic 2023-12-07 08:20:00 82 mm[Hg] [facility] height 2023-12-07 08:20:00 62.00 [in_i] Com [facility] weight 2023-12-07 08:20:00 175.4 [lb_av] Co mmon [facility] temperature 2023-12-07 08:20:00 97.8 [degF] Com [facility] bmi 2023-12-07 08:20:00 32.08 kg/m2 Comm on [facility] oximetry 2023-12-07 08:20:00 96 % Commo n [facility] respiratory rate 2023-12-07 08:20:00 16 /min Common [facility] blood pressure systolic 2023-12-07 08:20:00 120 mm[Hg] [facility] blood pressure diastolic 2023-12-07 08:20:00 82 mm[Hg] [facility] height 2023-09-06 08:20:00 62.00 [in_i] Com [facility] weight 2023-09-06 08:20:00 173.8 [lb_av] Co mmon [facility] temperature 2023-09-06 08:20:00 97.3 [degF] Com [facility] bmi 2023-09-06 08:20:00 31.78 kg/m2 Comm on [facility] oximetry 2023-09-06 08:20:00 90 % Commo n [facility] respiratory rate 2023-09-06 08:20:00 16 /min Common [facility] blood pressure systolic 2023-09-06 08:20:00 132 mm[Hg] [facility] blood pressure diastolic 2023-09-06 08:20:00 79 mm[Hg] [facility] height 2023-03-17 14:20:00 62.00 [in_i] Com [facility] weight 2023-03-17 14:20:00 170.0 [lb_av] Co [facility] temperature 2023-03-17 14:20:00 98.2 [degF] Com [facility] bmi 2023-03-17 14:20:00 31.09 kg/m2 Comm on [facility] oximetry 2023-03-17 14:20:00 95 % Commo n [facility] respiratory rate 2023-03-17 14:20:00 15 /min [facility] blood pressure systolic 2023-03-17 14:20:00 106 mm[Hg] [facility] blood pressure diastolic 2023-03-17 14:20:00 71 mm[Hg] [facility] height 2023-02-03 13:00:00 62.00 [in_i] Com [facility] weight 2023-02-03 13:00:00 168.2 [lb_av] Co [facility] temperature 2023-02-03 13:00:00 97.9 [degF] Com [facility] bmi 2023-02-03 13:00:00 30.76 kg/m2 Comm on [facility] oximetry 2023-02-03 13:00:00 92 % Commo n [facility] respiratory rate 2023-02-03 13:00:00 18 /min [facility] blood pressure systolic 2023-02-03 13:00:00 135 mm[Hg] [facility] blood pressure diastolic 2023-02-03 13:00:00 85 mm[Hg] Common [facility] height 2022-11-03 13:40:00 62.00 [in_i] Com [facility] weight 2022-11-03 13:40:00 171.2 [lb_av] Co mmon [facility] temperature 2022-11-03 13:40:00 98.0 [degF] Com [facility] bmi 2022-11-03 13:40:00 31.31 kg/m2 Comm on [facility] oximetry 2022-11-03 13:40:00 94 % Commo n [facility] respiratory rate 2022-11-03 13:40:00 16 /min Common [facility] blood pressure systolic 2022-11-03 13:40:00 116 mm[Hg] [facility] blood pressure diastolic 2022-11-03 13:40:00 79 mm[Hg] [facility] height 2022-05-04 10:40:00 62.00 [in_i] Com [facility] weight 2022-05-04 10:40:00 172.6 [facility]lb[facility]av] [facility] 2022-05-04 10:40:00 97.4 [degF] Com [facility] bmi 2022-05-04 10:40:00 31.57 kg/m2 Comm on [facility] oximetry 2022-05-04 10:40:00 96 % Commo n [facility] respiratory rate 2022-05-04 10:40:00 16 /min [facility] blood pressure systolic 2022-05-04 10:40:00 128 mm[Hg] [facility] blood pressure diastolic 2022-05-04 10:40:00 72 mm[Hg] [facility] height 2022-01-29 11:40:00 62.00 [in_i] Com [facility] weight 2022-01-29 11:40:00 168.2 [lb_av] Co mmon [facility] temperature 2022-01-29 11:40:00 97.6 [degF] Com [facility] bmi 2022-01-29 11:40:00 30.76 kg/m2 Comm on [facility] oximetry 2022-01-29 11:40:00 95 % Commo n [facility] respiratory rate 2022-01-29 11:40:00 17 /min [facility] blood pressure systolic 2022-01-29 11:40:00 124 mm[Hg] [facility] blood pressure diastolic 2022-01-29 11:40:00 76 mm[Hg] [facility] height 2021-10-21 10:00:00 62.00 [in_i] Com [facility] weight 2021-10-21 10:00:00 159.4 [lb_av] Co mmon [facility] temperature 2021-10-21 10:00:00 97.0 [degF] Com [facility] bmi 2021-10-21 10:00:00 29.15 kg/m2 Comm on [facility] oximetry 2021-10-21 10:00:00 94 % Commo n [facility] respiratory rate 2021-10-21 10:00:00 18 /min [facility] blood pressure systolic 2021-10-21 10:00:00 116 mm[Hg] [facility] blood pressure diastolic 2021-10-21 10:00:00 71 mm[Hg] [facility] height 2021-07-15 14:20:00 62.00 [in_i] Com [facility] weight 2021-07-15 14:20:00 160 [lb_av] Comm on [facility] bmi 2021-07-15 14:20:00 29.26 kg/m2 Comm on [facility] height 2021-04-16 10:40:00 62.00 [in_i] Com [facility] weight 2021-04-16 10:40:00 160 [lb_av] Comm on [facility] bmi 2021-04-16 10:40:00 29.26 kg/m2 Comm on [facility] height 2021-03-26 10:20:00 62.00 [in_i] Com [facility] weight 2021-03-26 10:20:00 160 [lb_av] Comm on [facility] bmi 2021-03-26 10:20:00 29.26 kg/m2 Comm on [facility] height 2021-03-06 08:00:00 62.00 [in_i] Com [facility] weight 2021-03-06 08:00:00 160 [lb_av] Comm on [facility] bmi 2021-03-06 08:00:00 29.26 kg/m2 Comm on [facility] height 2021-02-18 13:00:00 62.00 [in_i] Com [facility] weight 2021-02-18 13:00:00 160 [lb_av] Comm on [facility] bmi 2021-02-18 13:00:00 29.26 kg/m2 Comm on [facility] blood pressure diastolic 2021-01-20 10:40:00 84 mm[Hg] Common [facility] height 2021-01-20 10:40:00 62.00 [in_i] Com [facility] weight 2021-01-20 10:40:00 159 [lb_av] Comm on [facility] temperature 2021-01-20 10:40:00 97.7 [degF] Com [facility] bmi 2021-01-20 10:40:00 29.08 kg/m2 Comm on [facility] oximetry 2021-01-20 10:40:00 95 % Commo n [facility] respiratory rate 2021-01-20 10:40:00 18 /min Common [facility] blood pressure systolic 2021-01-20 10:40:00 132 mm[Hg] Common [facility] height 2020-12-23 10:20:00 62.00 [in_i] Com [facility] weight 2020-12-23 10:20:00 158.4 [lb_av] Co mmon [facility] temperature 2020-12-23 10:20:00 97.0 [degF] Com mon [facility] bmi 2020-12-23 10:20:00 28.97 kg/m2 Comm on [facility] oximetry 2020-12-23 10:20:00 96 % Commo n [facility] respiratory rate 2020-12-23 10:20:00 20 /min [facility] Encounters Start Date/Time End Date/Time Encounter Type Admission Type Attending [facility] Facility Care Department Encounter ID Source 2023-09-06 08:16:00 Outpatient Awilda Alatorre STMIKI [facility] [id number] [facility] 2023-02-02 15:57:00 Outpatient DavisAwilda aguilar [facility] [id number] [facility] 2022-05-25 08:58:00 Outpatient DavisAwilda aguilar [facility] [id number] [facility] 2022-04-29 13:40:00 Outpatient Awilda Alatorre [facility] [id number] [facility] 2022-01-28 07:34:00 Outpatient Awilda Alatorre [facility] [id number] [facility] 2022-01-21 15:46:00 Outpatient DavisAwilda aguilar STLC STLMLC [id number] [facility] 2022-01-20 07:51:00 Outpatient Awilda Alatorre STLC STLMLC [id number] [facility] 2021-10-21 09:54:00 Outpatient LandryAwilda STLC STLMLC [id number] [facility] 2021-04-16 14:39:14 Outpatient Landry Awilda STLC STLMLC [id number] [facility] 2021-04-16 14:31:06 Outpatient DavisAwilda aguilar STLC STLMLC [id number] [facility] 2021-04-16 14:25:23 Outpatient Awilda Alatorre STLMLC STLMLC [id number] [facility] 2021-04-16 14:12:59 Outpatient Awilda Alatorre STLMLC STLMLC [id number] [facility] 2021-04-16 12:20:08 Outpatient Awilda Alatorre STLMLC STLMLC [id number] [facility] 2021-04-16 12:16:05 Outpatient Awilda Alatorre STLMLC STLMLC [id number] [facility] 2021-04-16 12:15:10 Outpatient STLMLC STLMLC [id number] [facility] 2021-04-16 11:40:31 Outpatient Lucy Escobedo STLMLC STLMLC [id number] [facility] 2024-05-01 00:00:00 2024-05-01 00:00:00 (TEL) STLMLC STLMLC [id number] [facility] 2024-03-07 00:00:00 2024-03-07 00:00:00 OFFICE VISIT ESTAB PT LEVEL 4 STLMLC STLMLC [id number] [facility] 2023-12-07 00:00:00 2023-12-07 00:00:00 OFFICE VISIT ESTAB PT LEVEL 4 STLMLC STLMLC [id number] [facility] 2023-09-20 00:00:00 2023-09-20 00:00:00 (TEL) STLMLC STLMLC [id number] [facility] 2023-09-09 00:00:00 2023-09-09 00:00:00 (TEL) STLMLC STLMLC [id number] [facility] 2023-09-06 00:00:00 2023-09-06 00:00:00 OFFICE VISIT ESTAB PT LEVEL 4 STLMLC STLMLC [id number] [facility] 2023-08-04 00:00:00 2023-08-04 00:00:00 (TEL) STLMLC STLMLC [id number] [facility] 2023-06-17 00:00:00 2023-06-17 00:00:00 (TEL) STLMLC STLMLC [id number] [facility] 2023-03-18 00:00:00 2023-03-18 00:00:00 (TEL) STLMLC STLMLC [id number] [facility] 2023-03-17 00:00:00 2023-03-17 00:00:00 OFFICE VISIT ESTAB PT LEVEL 4 STLMLC STLMLC [id number] [facility] 2023-02-04 00:00:00 2023-02-04 00:00:00 (TEL) STLMLC STLMLC [id number] [facility] 2023-02-03 00:00:00 2023-02-03 00:00:00 OFFICE VISIT ESTAB PT LEVEL 3 STLMLC STLMLC [id number] [facility] 2022-12-28 00:00:00 2022-12-28 00:00:00 (TEL) STLMLC STLMLC [id number] [facility] 2022-11-03 00:00:00 2022-11-03 00:00:00 OFFICE VISIT ESTAB PT LEVEL 3 STLMLC STLMLC [id number] [facility] 2022-10-20 00:00:00 2022-10-20 00:00:00 (TEL) STLMLC STLMLC [id number] [facility] 2022-08-04 00:00:00 2022-08-04 00:00:00 (TEL) STLMLC STLMLC [id number] [facility] 2022-06-02 00:00:00 2022-06-02 00:00:00 (TEL) STLMLC STLMLC [id number] [facility] 2022-05-27 00:00:00 2022-05-27 00:00:00 (TEL) STLMLC STLMLC [id number] [facility] 2022-05-04 00:00:00 2022-05-04 00:00:00 OFFICE VISIT ESTAB PT LEVEL 4 STLMLC STLMLC [id number] [facility] 2022-02-17 00:00:00 2022-02-17 00:00:00 (TEL) STLMLC STLMLC [id number] [facility] 2022-01-29 00:00:00 2022-01-29 00:00:00 OFFICE VISIT EST PT LEVEL 3 STLMLC STLMLC [id number] [facility] 2021-10-21 00:00:00 2021-10-21 00:00:00 OFFICE VISIT EST PT LEVEL 3 STLMLC STLMLC [id number] [facility] 2021-10-14 00:00:00 2021-10-14 00:00:00 (TEL) STLMLC STLMLC [id number] [facility] 2021-07-15 00:00:00 2021-07-15 00:00:00 OFFICE VISIT EST PT LEVEL 3 STLMLC STLMLC [id number] [facility] 2021-06-13 00:00:00 2021-06-13 00:00:00 (TEL) STLMLC STLMLC [id number] [facility] 2021-04-16 00:00:00 2021-04-16 00:00:00 OFFICE VISIT EST PT LEVEL 3 STLMLC STLMLC [id number] [facility] 2021-04-16 00:00:00 2021-04-16 00:00:00 (TEL) STLMLC STLMLC [id number] [facility] 2021-04-14 00:00:00 2021-04-14 00:00:00 (TEL) STLMLC STLMLC [id number] [facility] 2021-03-26 00:00:00 2021-03-26 00:00:00 OL DIG E/M SVC 11-20 MIN STLMLC STLMLC [id number] [facility] 2021-03-19 00:00:00 2021-03-19 00:00:00 (TEL) STLMLC STLMLC [id number] [facility] 2021-03-06 00:00:00 2021-03-06 00:00:00 OFFICE VISIT EST PT LEVEL 3 STLMLC STLMLC [id number] [facility] 2021-02-25 00:00:00 2021-02-25 00:00:00 (TEL) STLMLC STLMLC [id number] [facility] 2021-02-18 00:00:00 2021-02-18 00:00:00 OFFICE VISIT EST PT LEVEL 3 STLMLC STLMLC [id number] [facility] 2021-01-20 00:00:00 2021-01-20 00:00:00 OFFICE VISIT EST PT LEVEL 3 STLMLC STLMLC [id number] [facility] 2020-12-23 00:00:00 2020-12-23 00:00:00 OFFICE VISIT ESTAB PT LEVEL 4 STLMLC STLMLC [id number] [facility] 2020-10-07 00:00:00 2020-10-07 00:00:00 Outpatient STLMLC STLMLC [id number] [facility] 2020-10-02 00:00:00 2020-10-02 00:00:00 Outpatient STLMLC STLMLC [id number] [facility] 2020-09-13 00:00:00 2020-09-13 00:00:00 Outpatient STLMLC STLMLC [id number] [facility] 2020-08-16 00:00:00 2020-08-16 00:00:00 Outpatient STLMLC STLMLC [id number] [facility] 2020-06-27 00:00:00 2020-06-27 00:00:00 Outpatient STLMLC [facility]C [id number] [facility] 2020-06-20 00:00:00 2020-06-20 00:00:00 Outpatient STLMLC [facility]C [id number] [facility] 2020-04-04 00:00:00 2020-04-04 00:00:00 Outpatient STLMLC [facility]C [id number] [facility] 2020-03-08 00:00:00 2020-03-08 00:00:00 Outpatient STLMLC STL[facility]C [id number] [facility] 2020-03-06 00:00:00 2020-03-06 00:00:00 Outpatient STLMLC STLMLC [id number] [facility] 2019-11-14 15:20:00 2019-11-14 15:20:[address] [facility] [id number] [facility] 2019-10-05 11:34:00 2019-10-05 11:34:00 [facility] [id number] [facility] 2019-10-05 10:45:00 2019-10-05 10:45:00 [facility] [id number] [facility] 2019-02-06 21:16:00 2019-02-06 21:16:[address] [facility] [address] [id number] [facility] 2019-02-02 13:53:00 2019-02-02 13:53:00 [facility] [address] [id number] [facility] 2019-01-26 08:40:00 2019-01-26 08:40:00 [facility] [id number] [facility] 2019-01-16 08:36:00 2019-01-16 08:36:[address] [facility] [address] [facility] [id number] [facility] 2019-01-13 11:00:00 2019-01-13 11:00:00 Outpatient [facility] [id number] [facility] 2018-12-22 14:47:00 2018-12-22 14:47:00 Outpatient [facility] [id number] [facility] 2018 15:47:00 2018 15:47:00 Outpatient [facility] [id number] [facility] 2018 13:00:00 2018 13:00:00 Outpatient [facility] [id number] [facility] Results Test Description Test Time Test Comments Results Result Co mments Source CULTURE, [id number] 00:00:00* Test Item Value Reference Range Interpretation Comme nts CULTURE, URINE (test code = 630-4) SPECIMEN NUMBER: [id number] 3D SCR MARQUITA BILAT W/CAD3D SCR MARQUITA BILAT W/CAD
--- NOTE | 2024-05-09 14:23 | RAD REPORT ---
EXAM: Chest Single View HISTORY: Dyspnea;COPD COMPARISON: 05/01/2024 FINDINGS: LUNGS/PLEURA: Known left upper lobe lung mass is again identified. Aeration of the left lung is sligh tly improved from prior. Right lung is clear. MEDIASTINUM: The mediastinal silhouette is within normal limits. CARDIAC: The cardiac silhouette is within normal limits. UPPER ABDOMEN: No significant abnormality. BONES: No acute abnormality. LINES/TUBES/OTHER: N/A IMPRESSION: Known left upper lobe lung mass with mild improved aeration of the left lung. Right lung is clear.
[2024-05-09] MEDS ORDERED: LEVALBUTEROL 1.25 MG/3 ML NEB ONE (15:54)
[2024-05-09] MEDS ORDERED: IPRATROPIUM BROM 0.5MG/2.5ML ONE ×2 (15:54→21:04)
[2024-05-09] MEDS ORDERED: IBUPROFEN 200 MG TAB PO ONE (15:54)
[2024-05-09 16:05] LABS: Absolute Basophils 0.1 K/uL (0-0.5); Absolute Eosinophils 0.2 K/uL (0-0.5); Absolute Lymphocytes (CBC) 3.1 K/uL (0.7-4.9); Absolute Monocytes 1.1 K/uL (0.1-1.3); Eosinophils % 1.2 % (0-4.4); Hematocrit 48.7 % (36.0-45.0); Lymphocytes % 24.8 % (15.3-44.8); MCH 30.3 pg (27.0-35.0); MCHC 32.9 g/dL (32.0-36.0); MCV 92.2 fL (80-100); MPV 9.9 fL (7.6-11.3); Monocytes % 9.1 % (3.3-12.3); Neutrophils % 63.9 % (41.7-73.7); Nucleated Red Blood Cells % 0.1 % (0-0); Platelets 404 thou/uL (152-406); RBC Red Blood Cell Count 5.28 M/uL (3.86-4.86)
[2024-05-09 16:06] LABS: SARS-CoV-2 Antigen CONTROL BLUE LINE VIS/BG OK; SARS-CoV-2 Antigen Rapid Res Negative (Negative)
[2024-05-09] MEDS ORDERED: NA CHLORIDE 0.9% 1,000 ML ONE (16:09)
[2024-05-09 16:30] LABS: Anion Gap 8.8 mEq/L (5.0-15.0); Troponin High Sensitivity 6.5 pg/mL (<58.9)
[2024-05-09 16:31] LABS: Potassium 3.8 mEq/L (3.5-5.1)
[2024-05-09] MEDS: AZITHROMYCIN IV 500 MG in NA CHLORIDE 0.9% 250 ML IVPB ONE (16:39)
[2024-05-09] MEDS ORDERED: CEFTRIAXONE 1000 MG/VIAL ONE (16:49)
[2024-05-09] MEDS ORDERED: NA CHLORIDE 0.9% 250 ML ONE (16:49)
[2024-05-09] MEDS ORDERED: AZITHROMYCIN 500 MG INJ IVPB ONE (16:49)
[2024-05-09] MEDS ORDERED: NA CHLORIDE 0.9% 50 ML ONE (16:49)
[2024-05-09 16:59] LABS: PT Prothrombin Time 10.9 SECONDS (9.4-12.5); PTT, Activated Partial Thromb 22.6 SECONDS (24.3-36.9); Protime INR 1.04
[2024-05-09] MEDS ORDERED: ONDANSETRON 4 MG/2 ML VIAL IV PRN (17:22)
[2024-05-09] MEDS ORDERED: ACETAMINOPHEN 325 MG TABLET PO PRN ×2 (17:22→17:34)
--- NOTE | 2024-05-09 17:40 | P.HP ---
Certification for Inpatient Patient admitted to: Inpatient With expected LOS: >2 Midnights Patient will require the following post-hospital care: None Practitioner: I am a practitioner with admitting privileges, knowledge of patient current condition, hospital course, and medical plan of care. Services: Services provided to patient in accordance with Admission requirements found in Title 42 Section 412.3 of the Code of Federal Regulations Patient History Date of Service: 05/09/24 Reason for admission: Shortness of breath History of Present Illness: Patient is a 63-year-old female with a past medical history significant asthma, bipolar disorder, COPD, hypertension who presents complaints of shortness of breath. Patient was seen in the hospital last week for similar symptoms and patient was discharged home after symptoms improved. Patient reported that she has been experiencing shortness of breath since discharge 8 days ago. Patient reported associated signs and symptoms of cough, chills, chest tightness, headache and subjective fever. Patient denies any other signs and symptoms. Symptoms are aggravated or relieved by nothing. Patient decided to present to the hospital due to worsening symptoms. Allergies codeine [Codeine] Allergy (Intermediate, Verified 10/20/22 12:08) Nausea/Vomiting Home medications list reviewed: No - Past Medical/Surgical History Diabetic: No -: COPD -: Asthma -: Bipolar Disorder -: HTN Past Surgical History: Reviewed- Non-Contributory - Family History Family History: Reviewed- Non-Contributory - Social History Smoking Status: Former smoker Smoking therapy provided: No Patient receptive to therapy: No Alcohol use: No CD- Drugs: No Caffeine use: Yes Place of Residence: Home Review of Systems General: Chills, Other (Subjective fever) Eyes: Unremarkable ENT: Unremarkable Respiratory: Cough, Shortness of Breath, Other (Chest tightness.) Cardiovascular: Unremarkable Gastrointestinal: Unremarkable Genitourinary: Unremarkable Musculoskeletal: Unremarkable Integumentary: Unremarkable Neurological: Other (Headache) Lymphatics: Unremarkable Physical Examination - Physical Exam General: Alert, In no apparent distress, Oriented x3, Cooperative HEENT: Atraumatic, PERRLA, Mucous membr. moist/pink, EOMI, Sclerae nonicteric Neck: Supple, 2+ carotid pulse no bruit, No LAD, Without JVD or thyroid abnormality Respiratory: Diminished, Expiratory wheezes Cardiovascular: No edema, Normal S1 S2, Irregular heart rate/rhythm (Tachycardia) Capillary refill: <2 Seconds Gastrointestinal: Normal bowel sounds, Soft and benign, No tenderness Musculoskeletal: No clubbing, No tenderness Integumentary: No rashes Neurological: Normal gait, Normal speech, Normal strength at 5/5 x4 extr, Normal tone, Normal affect Lymphatics: No axilla or inguinal lymphadenopathy - Studies Laboratory Data (last 24 hrs) 05/09/24 05/09/24 05/09/24 15:46 15:46 15:46 WBC 12.50 H Hgb 16.0 H Hct 48.7 H Plt Count 404 PT 10.9 INR 1.04 APTT 22.6 L Sodium 139 Potassium 3.8 BUN 18 Creatinine 1.02 Glucose 157 H Microbiology Data (last 24 hrs): 05/09/24 15:46 Nasopharnyx Influenza Type A Antigen Screen - Final 05/09/24 15:46 Nasopharnyx Influenza Type B Antigen Screen - Final Assessment and Plan - Plan Acute respiratory failure with hypoxia Acute on chronic COPD exacerbation. Moderate persistent asthma with acute exacerbation --Continue Neb treatment with DuoNeb and steroids --Pulmonology consulted. Recommendations appreciated --CT chest pending for further evaluation. Lactic acidosis --Likely secondary to respiratory distress secondary to above. --Continue current treatment regimen --Repeat levels indicates resolution. Bipolar disorder --Continue home medication Hypertension --Patient currently hypotensive. --Will hold off on BP meds. --Continue to monitor blood blood pressure levels Headache --Tylenol as needed. CKD 2. --Stable. --Will continue to monitor renal functions Anemia of chronic disease. --H&H stable. --Transfuse if hemoglobin less than 7.0 DVT prophylaxis with Lovenox subQ Discharge Plan: Home Plan to discharge in: 48 Hours - Advance Directives Does patient have a Living Will: No Does patient have a Durable POA for Healthcare: No - Code Status/Comfort Care Code Status Assessed: Yes Comfort Measures: Palliative Care Physician Review: Patient Assessed, Agree with Above Assessment and Plan Critical Care: No
[2024-05-09] MEDS ORDERED: METHYLPREDNISOLONE 125 MG INJ ONE (18:49)
--- NOTE | 2024-05-09 19:11 | ER ---
Nurse's Notes [facility] Name: Edda Stockton Age: 63 yrs Sex: Female : 1960 Arrival Date: 05/09/2024 Time: 13:37 Bed 24 Private MD: Diagnosis: COPD/ Chronic obstructive pulmonary disease with (acute) exacerbation Presentation: 05/09 13:56 Chief complaint: Patient states: SOB 2-3 days ago. Coronavirus screen: At this time, ld1 the client does not indicate any symptoms associated with coronavirus-19. Ebola Screen: No symptoms or risks identified at this time. Initial Sepsis Screen: Does the patient meet any 2 criteria? No. Patient's initial sepsis screen is negative. Does the patient have a suspected source of infection? No. Patient's initial sepsis screen is negative. Risk Assessment: Do you want to hurt yourself or someone else? Patient reports no desire to harm self or others. Onset of symptoms was May 09, 2024. 13:56 Method Of Arrival: Wheelchair ld1 13:56 Acuity: OSCAR 3 ld1 Triage Assessment: 13:56 General: Appears in no apparent distress. uncomfortable, Behavior is cooperative, ld1 anxious. Pain: Denies pain. EENT: No signs and/or symptoms were reported regarding the EENT system. Neuro: Level of Consciousness is awake, alert, obeys commands, Oriented to person, place, time, situation. Cardiovascular: Capillary refill < 3 seconds Patient's skin is warm and dry. Rhythm is sinus tachycardia. Respiratory: Reports shortness of breath at rest on exertion Airway is patent Respiratory effort is even, labored, Onset: The symptoms/episode began/occurred gradually, the patient has moderate shortness of breath. GI: Abdomen is round non-distended. : No signs and/or symptoms were reported regarding the genitourinary system. Derm: No signs and/or symptoms reported regarding the dermatologic system. Musculoskeletal: No signs and/or symptoms reported regarding the musculoskeletal system. Historical: - Allergies: 13:50 Codeine; ld1 - PMHx: 13:50 Asthma; Bipolar disorder; COPD; Hypertension; ld1 - Immunization history:: Adult Immunizations up to date. - Infectious Disease History:: Denies. - Social history:: Smoking status: Patient reports the use of cigarette tobacco products, smokes one-half pack cigarettes per day. - Family history:: not pertinent. - Hospitalizations: : No recent hospitalization is reported. Screenin:25 [facility] ED Fall Risk Assessment (Adult) History of falling in the last 3 months, jb4 including since admission No falls in past 3 months (0 pts) Confusion or Disorientation No (0 pts) Intoxicated or Sedated No (0 pts) Impaired Gait No (0 pts) Mobility Assist Device Used No (0 pt) Altered Elimination No (0 pt) Score/Fall Risk Level 0 - 2 = Low Risk Oriented to surroundings, Maintained a safe environment. Abuse screen: Denies threats or abuse. Nutritional screening: No deficits noted. Tuberculosis screening: No symptoms or risk factors identified. Assessment: 15:15 General: Appears in no apparent distress. uncomfortable, Behavior is calm, cooperative, jb4 appropriate for age. Pain: Denies pain. Neuro: Level of Consciousness is awake, alert, obeys commands, Oriented to person, place, time, situation. Cardiovascular: Patient's skin is warm and dry. Respiratory: Airway is patent Respiratory effort is even, labored, Respiratory pattern is regular, symmetrical, Pt noted to be wheezing. Derm: Skin is intact, Skin is pink, warm \\T\\ dry. Musculoskeletal: Circulation, motion, and sensation intact. Range of motion: intact in all extremities. 16:15 Reassessment: Patient appears in no apparent distress at this time. Patient and/or jb4 family updated on plan of care and expected duration. Pain level reassessed. Patient is alert, oriented x 3, equal unlabored respirations, skin warm/dry/pink. 17:15 Reassessment: Patient appears in no apparent distress at this time. Patient and/or jb4 family updated on plan of care and expected duration. Pain level reassessed. Patient is alert, oriented x 3, equal unlabored respirations, skin warm/dry/pink. 18:15 Reassessment: Patient appears in no apparent distress at this time. Patient and/or jb4 family updated on plan of care and expected duration. Pain level reassessed. Patient is alert, oriented x 3, equal unlabored respirations, skin warm/dry/pink. 19:25 Reassessment: Patient appears in no apparent distress at this time. Patient and/or jb4 family updated on plan of care and expected duration. Pain level reassessed. Patient is alert, oriented x 3, equal unlabored respirations, skin warm/dry/pink. Patient states feeling better. 20:50 Reassessment: Patient appears in no apparent distress at this time. Patient and/or jb4 family updated on plan of care and expected duration. Pain level reassessed. Patient is alert, oriented x 3, equal unlabored respirations, skin warm/dry/pink. 22:00 Reassessment: Pt taken to room 216. Was given ordered Albuterol and Atrovent neb as jb4 ordered on [employer] at 2100. When pt sat up. Pt seemed to be panicked Stating " My mouth is so dry. Its so dry." Assisted pt into the wheel chair. Audible wheezing could still be heard but diminished. Pt given water and coached in breathing techniques for about 2 minutes. Asked pt how they were feeling and if they have a history of anxiety. Pt states " I feel much better, yes the water and breathing helped me calm down and yes I have a history of anxiety." Pt respirations are now even and unlabored. Pt continues to report feeling calmer and breathing more easily during transport to room 216. Vital Signs: 13:56 Pulse 110; Resp 26; Temp 97.7(TE); Pulse Ox 93% on R/A; Weight 68.04 kg; Height 5 ft. 4 ld1 in. ; Pain 0/10; 13:56 BP 98 / 77; ld1 16:00 BP 117 / 78; Pulse 105; Resp 18; Pulse Ox 100% on 10 lpm Nebulizer Mask; jb4 16:45 BP 137 / 80; Pulse 98; Resp 18; Pulse Ox 95% ; jb4 18:15 BP 110 / 78; Pulse 102; Resp 18; Pulse Ox 93% on R/A; jb4 19:15 BP 112 / 69; Pulse 81; Resp 16; Pulse Ox 91% on R/A; jb4 20:30 BP 121 / 90; Pulse 81; Resp 16; Pulse Ox 90% on R/A; jb4 21:00 BP 150 / 87; Pulse 82; Resp 24; Pulse Ox 90% ; jb4 13:56 Body Mass Index 25.75 (68.04 kg, 162.56 cm) ld1 13:56 Pain Scale: Adult ld1 ED Course: 13:41 Patient arrived in ED. al6 13:50 Parish Whatley MD is Attending Physician. rn 13:50 Marcel[facility] Lopez F[facility]-C is [facility]. kb 13:56 Arm band placed on right wrist. ld1 13:58 Triage completed. ld1 14:13 XRAY Chest (1 view) In Process Unspecified. EDMS 18:29 Tomi Bailey, SHEN is Primary Nurse. jb4 19:10 Rick Gleason NP is Hospitalizing Provider. iw 19:25 Patient has correct armband on for positive identification. Bed in low position. Call jb4 light in reach. Side rails up X 1. Provided Education on: Need for admit. 19:25 No provider procedures requiring assistance completed. Patient admitted, IV remains in jb4 place. Administered Medications: 16:02 Drug: Levalbuterol Inhalation 1.25 mg Inhalation once Route: Inhalation; jb4 16:02 Drug: Levalbuterol Inhalation 1.25 mg Inhalation once Route: Inhalation; jb4 16:02 Drug: Ipratropium Inhalation Aerosol 0.5 mg Inhalation once Route: Inhalation; jb4 16:02 Drug: Ibuprofen PO 600 mg PO once Route: PO; jb4 17:00 Follow up: Response: No adverse reaction; Marked relief of symptoms jb4 16:10 Drug: NS 0.9% IV 1000 ml IV at 1000 ml once; to be given as a bolus over 60 minutes jb4 Route: IV; Rate: 1000 ml; Site: right upper arm; 17:10 Follow up: Response: No adverse reaction; IV Status: Completed infusion; IV Intake: jb4 1000ml 18:56 Drug: MethylPrednisoLONE IVP 125 mg IVP once Route: IVP; Site: right upper arm; jb4 19:30 Follow up: Response: No adverse reaction jb4 Intake: 17:10 IV: 1000ml; Total: 1000ml. jb4 Outcome: 19:11 Decision to Hospitalize by Provider. iw 22:15 Admitted to Med/surg accompanied by nurse, via wheelchair, room 214, with chart, jb4 22:15 Condition: stable 22:15 Discharge instructions given to patient, Instructed on the need for admit, Demonstrated understanding of instructions, 22:16 Patient left the ED. jb4 Signatures: Dispatcher [employer] EDMI Marcela Lopez FNP-C FNP-Alicia Ni, RN Parish Wu MD MD rn Bryson, James, RN RN jb4 Shima Diallo RN RN ld1 Candace Montaño6 Corrections: (The following items were deleted from the chart) 20:57 16:00 BP 117 / 78; Pulse 105bpm; Resp 18bpm; Pulse Ox 100%; jb4 jb4
--- NOTE | 2024-05-09 19:11 | EDPHYS ---
Physician Documentation [facility] Name: Edda Stockton Age: 63 yrs Sex: Female : 1960 Arrival Date: 05/09/2024 Time: 13:37 Bed 24 Private MD: ED Physician Parish Whatley HPI: 05/09 15:25 This 63 yrs old Female presents to ER via Wheelchair with complaints of Breathing rn Difficulty. 15:25 The patient has shortness of breath at rest, with light activity. Onset: The rn symptoms/episode began/occurred 1 week(s) ago. Duration: The symptoms are intermittent. The patient's shortness of breath is aggravated by exertion, light activity. Associated signs and symptoms: Pertinent positives: non-productive cough, Pertinent negatives: chest pain, hemoptysis. Severity of symptoms: At their worst the symptoms were moderate in the emergency department the symptoms are unchanged. The patient has experienced similar episodes in the past. The patient has been recently seen at the [facility] Emergency Department. 15:25 Patient feels like never got over her recent flu. Now has 7 to 10 days of increasing rn shortness of breath with nonproductive cough. No fever. Feels weakness. Historical: - Allergies: 13:50 Codeine; ld1 - PMHx: 13:50 Asthma; Bipolar disorder; COPD; Hypertension; ld1 - Immunization history:: Adult Immunizations up to date. - Infectious Disease History:: Denies. - Social history:: Smoking status: Patient reports the use of cigarette tobacco products, smokes one-half pack cigarettes per day. - Family history:: not pertinent. - Hospitalizations: : No recent hospitalization is reported. ROS: 15:25 Constitutional: Negative for fever, chills, and weight loss, Cardiovascular: Negative rn for chest pain, palpitations, and edema, Respiratory: Positive for cough and shortness of breath Abdomen/GI: Negative for abdominal pain, nausea, vomiting, diarrhea, and constipation, Back: Negative for injury and pain, MS/Extremity: Negative for injury and deformity, Skin: Negative for injury, rash, and discoloration, Neuro: Negative for headache, weakness, numbness, tingling, and seizure, Exam: 14:34 ECG was reviewed by the Attending Physician. rn 15:25 Constitutional: This is a well developed, well nourished patient who is awake, alert, rn moderate tachypnea Head/Face: Normocephalic, atraumatic. ENT: Dry mucous membranes, no stridor Cardiovascular: Tachycardic, regular. Respiratory: Moderate tachypnea with wheezing bilaterally Abdomen/GI: Soft, non-tender MS/ Extremity: Pulses equal, no cyanosis. Neuro: Awake and alert, GCS 15 Vital Signs: 13:56 Pulse 110; Resp 26; Temp 97.7(TE); Pulse Ox 93% on R/A; Weight 68.04 kg; Height 5 ft. 4 ld1 in. ; Pain 0/10; 13:56 BP 98 / 77; ld1 16:00 BP 117 / 78; Pulse 105; Resp 18; Pulse Ox 100% on 10 lpm Nebulizer Mask; jb4 16:45 BP 137 / 80; Pulse 98; Resp 18; Pulse Ox 95% ; jb4 18:15 BP 110 / 78; Pulse 102; Resp 18; Pulse Ox 93% on R/A; jb4 19:15 BP 112 / 69; Pulse 81; Resp 16; Pulse Ox 91% on R/A; jb4 20:30 BP 121 / 90; Pulse 81; Resp 16; Pulse Ox 90% on R/A; jb4 21:00 BP 150 / 87; Pulse 82; Resp 24; Pulse Ox 90% ; jb4 13:56 Body Mass Index 25.75 (68.04 kg, 162.56 cm) ld1 13:56 Pain Scale: Adult ld1 MDM: 13:50 Medical Screening Exam initiated rn 05/09 13:51 Order name: BMP rn 05/09 13:51 Order name: Blood Culture Adult (2) rn 05/09 13:51 Order name: CBC with Diff rn 05/09 13:51 Order name: NT PRO-BNP rn 05/09 13:51 Order name: PT-INR rn 05/09 13:51 Order name: Ptt, Activated rn 05/09 13:51 Order name: Troponin HS rn 05/09 13:51 Order name: Flu rn 05/09 13:51 Order name: SARS-COV-2 Antigen Rapid rn 05/09 14:06 Order name: Lactate w/ 2H reflex if indic. rn 05/09 18:26 Order name: Ghost Lactate-NO COLLECT Timer EDMS 05/09 18:26 Order name: Magnesium EDMS 05/09 18:26 Order name: NT PRO-BNP EDAK 05/09 18:26 Order name: Phosphorus EDAK 05/09 18:26 Order name: Urinalysis w/ reflexes EDAK 05/09 18:26 Order name: Basic Metabolic Panel EDAK 05/09 18:26 Order name: Basic Metabolic Panel EDAK 05/09 18:26 Order name: CBC with Automated Diff EDAK 05/09 18:26 Order name: CBC with Automated Diff [facility] 05/09 19:38 Order name: Lactate Sepsis 2 HR Follow-up EDAK 05/09 13:51 Order name: XRAY Chest (1 view); Complete Time: 14:57 rn 05/09 21:17 Order name: CT EDAK 05/09 13:51 Order name: EKG; Complete Time: 13:51 rn 05/09 13:51 Order name: Cardiac monitoring; Complete Time: 18:35 rn 05/09 13:51 Order name: EKG - Nurse/Tech; Complete Time: 13:59 rn 05/09 13:51 Order name: IV Saline Lock; Complete Time: 18:35 rn 05/09 13:51 Order name: Labs collected and sent; Complete Time: 18:35 rn 05/09 13:51 Order name: O2 Per Protocol; Complete Time: 18:35 rn 05/09 13:51 Order name: O2 Sat Monitoring; Complete Time: 18:35 rn 05/09 14:06 Order name: Accucheck; Complete Time: 18:34 rn 05/09 14:06 Order name: IV Saline Lock - Large Bore; Complete Time: 18:34 rn 05/09 14:06 Order name: Vital Signs; Complete Time: 18:34 rn EC:34 Rate is 109 beats/min. Rhythm is regular. QRS [place] is Normal. [place] interval is normal. rn QRS interval is normal. QT interval is normal. No Q waves. T waves are Normal. No ST changes noted. Clinical impression: Sinus tachycardia. Interpreted by me. Reviewed by me. Administered Medications: 16:02 Drug: Levalbuterol Inhalation 1.25 mg Inhalation once Route: Inhalation; jb4 16:02 Drug: Levalbuterol Inhalation 1.25 mg Inhalation once Route: Inhalation; jb4 16:02 Drug: Ipratropium Inhalation Aerosol 0.5 mg Inhalation once Route: Inhalation; 4 16:02 Drug: Ibuprofen PO 600 mg PO once Route: PO; jb4 17:00 Follow up: Response: No adverse reaction; Marked relief of symptoms jb4 16:10 Drug: NS 0.9% IV 1000 ml IV at 1000 ml once; to be given as a bolus over 60 minutes jb4 Route: IV; Rate: 1000 ml; Site: right upper arm; 17:10 Follow up: Response: No adverse reaction; IV Status: Completed infusion; IV Intake: jb4 1000ml 18:56 Drug: MethylPrednisoLONE IVP 125 mg IVP once Route: IVP; Site: right upper arm; jb4 19:30 Follow up: Response: No adverse reaction jb4 Disposition Summary: 05/09/24 19:11 Hospitalization Ordered Notes: Hospitalization Status: Inpatient Admission iw Provider: Rick Gleason Location: Telemetry/MedSurg (Inpatient) iw Condition: Stable iw Bed/Room Type: Standard Room Assignment: 216(05/09/24 20:58) jb4 Diagnosis - COPD/ Chronic obstructive pulmonary disease with (acute) exacerbation iw Forms: - Medication Reconciliation Form iw - SBAR form iw - Leadership Thank You Letter iw Signatures: Dispatcher [employer] Alicia Anderson RN RN iw Parish Whatley MD MD rn Bryson, James, RN RN jb4 Shima Diallo RN RN ld1 Corrections: (The following items were deleted from the chart) 13:51 13:51 Chest Single View+RAD.RAD.BRZ ordered. EDMS EDMS 14:07 14:07 LACTATE+C.LAB.BRZ ordered. EDMS EDMS 20:58 19:11 jb4
[2024-05-09] MEDS: IPRATROPIUM BROM 0.5MG/2.5ML NEB SCH (20:55)
[2024-05-09] MEDS: ALBUTEROL 2.5 MG/3 ML NEB SOL NEB SCH (20:55)
[2024-05-09] MEDS ORDERED: ALBUTEROL 2.5 MG/3 ML NEB SOL ONE (21:04)
--- NOTE | 2024-05-09 21:16 | RAD REPORT ---
EXAMINATION: CT CHEST WITHOUT CONTRAST CLINICAL INDICATION: Female, 63 years old. SOB TECHNIQUE: Routine CT scan of the chest without intravenous contrast. One or more of the following do se reduction techniques were used: Automated exposure control, adjustment of the mA and/or kV according to patient size, and/or iterative reconstruction. Unless otherwise specified, incidental fi ndings do not require dedicated imaging follow-up. [id number]. COMPARISON: 05/01/2024 FINDINGS: LOWER NECK: Visualized thyroid gland and soft tissues are normal. LUNGS AND AIRWAYS: The left suprahilar mass is again identified. This obstructs the left upper lobe b ronchus.The mass is similar in size measuring approximately 6.8 x 6.8 cm which extends into the mediastinum. Some mild nodular groundglass opacities peripherally left upper lobe could be from post obstructive pneumonitis/pneumonia or metastatic disease. Other bilateral pulmonary nodules are noted which are unchanged. PLEURA: No pleural effusion. No pneumothorax. Hemidiaphragms are normally positioned. MEDIASTINUM AND LYMPH NODES: No mediastinal mass or fluid collection. Normal size mediastinal, hilar, and axillary lymph nodes. Moderate distal esophageal thickening which could reflects esophagitis. Small hiatal hernia also noted. THORACIC AORTA: No thoracic aortic aneurysm. PULMONARY ARTERIES: Cal[place] is within normal limits. HEART: Normal heart size. No coronary calcifications.No significant pericardial effusion. OSSEOUS STRUCTURES AND CHEST WALL: UPPER ABDOMEN: Unchanged left adrenal mass which remains suspicious for metastatic disease. Hepatic s teatosis. IMPRESSION: No significant change in aeration of the lungs with left upper lobe mass with extension into the medi astinum. Left upper lobe nodular and groundglass opacities may reflect either additional sites of disease versus postobstructive pneumonia/pneumonitis. .
[2024-05-09 22:54] VITALS: BMI 28.1
[2024-05-10] MEDS: METHYLPREDNISOLONE 40 MG INJ IV SCH (00:39)
[2024-05-10 04:58] LABS: Absolute Basophils 0.1 K/uL (0-0.5); Absolute Lymphocytes (CBC) 0.9 K/uL (0.7-4.9); Absolute Monocytes 0.2 K/uL (0.1-1.3); Absolute Neutrophil 8.2 K/uL (1.8-8.0); Basophils % 0.9 % (0-1.3); Hematocrit 44.3 % (36.0-45.0); Hemoglobin 14.3 g/dL (12.0-15.0); Lymphocytes % 9.4 % (15.3-44.8); MCH 30.2 pg (27.0-35.0); MCHC 32.4 g/dL (32.0-36.0); MCV 93.3 fL (80-100); MPV 9.8 fL (7.6-11.3); Monocytes % 1.9 % (3.3-12.3); Neutrophils % 87.8 % (41.7-73.7); Nucleated Red Blood Cells % 0.2 % (0-0); Platelets 430 thou/uL (152-406); RBC Red Blood Cell Count 4.74 M/uL (3.86-4.86); Red Cell Distribution Width 14.9 % (12.1-15.2)
[2024-05-10 05:03] LABS: Anion Gap 8.3 mEq/L (5.0-15.0); Magnesium 2.2 mg/dL (1.6-2.4); Phosphorus 2.6 mg/dL (2.5-4.9); Potassium 4.3 mEq/L (3.5-5.1)
[2024-05-10 05:40] LABS: Band Neutrophils 6 % (0-1); Blood Morphology Comment NOT SEEN (NOT SEEN); Differential Total Cells Count 100; Eosinophils 1 % (0-3); Lymphocytes 10 % (15-42); Monocytes 0 % (0-10); Platelet Estimate ADEQ; Reactive Lymphocytes 2 %; Segmented Neutrophils 81 % (40-80)
[2024-05-10] MEDS: PNEUMOCOCCAL VACCINE 0.5 ML IMVAC ONE (08:00)
[2024-05-10] MEDS: CEFTRIAXONE 1,000 MG in NA CHLORIDE 0.9% 50 ML IVPB SCH (08:41)
[2024-05-10] MEDS: ENOXAPARIN 40 MG/0.4 ML SQ SCH (08:41)
--- NOTE | 2024-05-10 12:11 | P.CNS ---
Date of Consult: 05/10/24 Reason for Consult: COPD exacerbation lung mass Chief Complaint: Shortness of breath History of Present Illness: Patient is 63 years of age admitted with worsening dyspnea cough congestion worsening shortness of breath she was admitted here about 8 days ago discharged did not get better just quit smoking 9 days ago found to have a left upper lobe lung mass any weight loss has minimal chest discomfort has a very large left upper lobe lung mass Allergies codeine [Codeine] Allergy (Intermediate, Verified 10/20/22 12:08) Nausea/Vomiting Home Medications: Quetiapine [Seroquel] 100 mg PO BEDTIME 05/09/24 - Past Medical/Surgical History Diabetic: No -: COPD -: Asthma -: Bipolar Disorder -: HTN -: Depression -: Anxiety -: Sleep Insomnia - Social History Smoking Status: Current every day smoker Alcohol use: No CD- Drugs: No Caffeine use: Yes Place of Residence: Home Review of Systems General: Weakness Respiratory: Cough, Shortness of Breath Cardiovascular: Chest Pain Physical Examination Temp Pulse Resp BP Pulse Ox 97.4 F 96 H 20 118/67 91 05/10/24 08:00 05/10/24 08:00 05/10/24 08:00 05/10/24 08:00 05/10/24 04:00 General: Alert, In no apparent distress, Oriented x3 HEENT: Other Respiratory: Clear to auscultation bilaterally, Diminished Cardiovascular: No edema, Regular rate/rhythm, Normal S1 S2 Gastrointestinal: Normal bowel sounds, Soft and benign, Non-distended Musculoskeletal: No clubbing, No swelling Laboratory Data (last 24 hrs) 05/09/24 05/09/24 05/09/24 15:46 15:46 15:46 WBC 12.50 H Hgb 16.0 H Hct 48.7 H Plt Count 404 PT 10.9 INR 1.04 APTT 22.6 L Sodium 139 Potassium 3.8 BUN 18 Creatinine 1.02 Glucose 157 H - Problems (1) Lung mass Current Visit: Yes Status: Acute Plan: Patient is 63 years of age admitted with worsening dyspnea has a large left upper lobe lung mass most certainly is malignancy have discussed with the patient will need bronchoscopy risks include bleeding infection and lung collapse patient agrees we will be able to schedule it for either tomorrow morning or the afternoon patient stable for bronchoscopy (2) COPD exacerbation Current Visit: Yes Status: Acute Plan: Changed to p.o. prednisone Augmentin with bronchodilators
--- NOTE | 2024-05-10 15:56 | P.PN ---
Subjective Date of Service: 05/10/24 Chief Complaint: Shortness of breath Patient reports significant improvement in her shortness of breath. She has no needed oxygen. She denies any chest pain. Physical Examination - Vital Signs Temperature: 97.4 F Blood Pressure: 131/61 Pulse: 90 Respirations: 20 Pulse Ox (%): 90 - Studies Laboratory Data (last 24 hrs) 05/09/24 05/09/24 05/09/24 15:46 15:46 15:46 WBC 12.50 H Hgb 16.0 H Hct 48.7 H Plt Count 404 PT 10.9 INR 1.04 APTT 22.6 L Sodium 139 Potassium 3.8 BUN 18 Creatinine 1.02 Glucose 157 H Microbiology Data (last 24 hrs): 05/09/24 15:46 Blood - Blood Anaerobic Blood Culture - Final 05/09/24 15:46 Nasopharnyx Influenza Type A Antigen Screen - Final 05/09/24 15:46 Nasopharnyx Influenza Type B Antigen Screen - Final Assessment And Plan - Plan Physical examination General: Alert and oriented x3, NAD, HEENT: Conjunctiva not pale, anicteric sclera Neck: Supple, no elevated JVD Heart: Heart sounds 1 and 2 normal, regular rhythm, normal rate, no pedal edema Lungs: Clear to auscultation bilaterally, adequate breath sounds bilaterally, no rhonchi or crackles. Abdomen: Soft, nondistended, nontender, normal bowel sounds. Extremities: No tenderness, no deformity Skin: Normal skin turgor, no rash, no nodules or ulcers. Neuro: No focal motor deficit. Normal speech. Psychiatry: Normal mood, no agitation. Diagnosis Acute respiratory failure with hypoxia Acute on chronic COPD exacerbation. Moderate persistent asthma with acute exacerbation Lactic acidosis Bipolar disorder Hypertension Anemia of chronic disease Plan Acute respiratory failure with hypoxia Acute on chronic COPD exacerbation. Moderate persistent asthma with acute exacerbation Respiratory status improved with nebulizers and steroid. Continue current bronchodilators and steroid Pulmonary Dr. Lofton input appreciated Lactic acidosis Likely secondary to hypoxia. Resolved. Left upper lobe lung mass Patient evaluated by Dr. Hunter who recommended bronchoscopy tomorrow. Bipolar disorder Continue home medication Hypertension Blood pressure improved. Patient is currently normotensive Hold home antihypertensives for now. DVT prophylaxis: Lovenox subQ Advanced directive: Full code
[2024-05-10] MEDS: predniSONE 20 MG TAB PO SCH (21:01)
[2024-05-10] MEDS: QUETIAPINE 100MG TAB PO SCH (21:01)
[2024-05-10] MEDS: AMOX/K CLAV 875 MG TAB PO SCH (21:01)
[2024-05-11] MEDS ORDERED: LIDOCAINE 4% TOP SOLUTION ONE (06:49)
[2024-05-11] MEDS ORDERED: Phenylephrine HCl 10 MG/ML 1 ML VIAL ONE (06:49)
[2024-05-11] MEDS ORDERED: LIDOCAINE 1% MPF 5 ML VIAL ONE (07:14)
[2024-05-11] MEDS ORDERED: propofoL 200 MG/20 ML VIAL IV ONE (07:14)
[2024-05-11] MEDS ORDERED: GLYCOPYRROLATE 0.2 MG/ML SYR ONE (07:14)
[2024-05-11] MEDS ORDERED: FENTANYL CITR 100 MCG/2 ML ONE (07:14)
[2024-05-11] MEDS: Ringers Lactate 1,000 ML IV ONE (07:39)
[2024-05-11] MEDS: LIDOCAINE 1% MPF 30 ML VIAL ONE (08:10)
--- NOTE | 2024-05-11 09:05 | RAD REPORT ---
EXAM: Fluoroscopy use, FLUORO-GUIDE FOR BRONCH UPT1HR HISTORY: LEFT LUNG MASS COMPARISON: None FINDINGS: A total of 3 images were sent to PACS, during a fluoroscopically guided bronchoscopy. No ra diologist was involved in protocoling or performance of the study, and no radiologist was present for the duration of the procedure. No interpretation of the saved images will be provided. Total fluoroscopy time: 3:02 min. IMPRESSION: Documentation of fluoroscopy use as above. Transcribed Date/Time: 05/11/2024 9:05 AM
--- NOTE | 2024-05-11 09:44 | RAD REPORT ---
EXAM: Chest Single View HISTORY: R/O PNEUMOTHORAX COMPARISON: Chest radiograph 05/09/2024 FINDINGS: Known left upper lobe mass. No pneumothorax identified following bronchoscopy. Cardiomediastinal silh ouette is unchanged. IMPRESSION: No pneumothorax identified following bronchoscopy.
[2024-05-11] MEDS: IPRATROPIUM BROM 0.5MG/2.5ML NEB SCH (10:30)
[2024-05-11] MEDS: ALBUTEROL 2.5 MG/3 ML NEB SOL NEB SCH (10:30)
--- NOTE | 2024-05-11 12:16 | P.OP ---
Date of Service: 05/11/24 (Bronchoscopy with left upper lobe endobronchial biopsies) Findings and Operative Technique Is for 63 years of age admitted with worsening dyspnea COPD exacerbation was found to have a very large left upper lobe mass Obtaining informed consent for the patient she was premedicated by anesthesia Endings normal upper airway normal miguel normal right sided bronchial anatomy patient had a partial occlusion of the left upper lobe 3% occluded multiple endobronchial biopsies were done patient tolerated the procedure well had some nasal bleeding multiple biopsies were taken patient can be discharged home on bronchodilators low-dose prednisone 10 mg twice a day for a week and follow-up with me in 1 week
--- NOTE | 2024-05-11 17:51 | P.PN ---
Subjective Date of Service: 05/11/24 Chief Complaint: Shortness of breath Status post bronchoscopy with biopsy of lung mass today. Patient was quite short of breath after the bronchoscopy and was requiring up to 10 L oxygen by nasal cannula. Physical Examination - Vital Signs Temperature: 97.9 F Blood Pressure: 141/91 Pulse: 112 Respirations: 24 Pulse Ox (%): 97 - Studies Microbiology Data (last 24 hrs): 05/09/24 15:46 Blood - Blood Anaerobic Blood Culture - Final Assessment And Plan - Plan Physical examination General: Alert and oriented x3, NAD, HEENT: Conjunctiva not pale, anicteric sclera Neck: Supple, no elevated JVD Heart: Heart sounds 1 and 2 normal, regular rhythm, normal rate, no pedal edema Lungs: Clear to auscultation bilaterally, adequate breath sounds bilaterally, no rhonchi or crackles. Abdomen: Soft, nondistended, nontender, normal bowel sounds. Extremities: No tenderness, no deformity Skin: Normal skin turgor, no rash, no nodules or ulcers. Neuro: No focal motor deficit. Normal speech. Psychiatry: Normal mood, no agitation. Diagnosis Acute respiratory failure with hypoxia Acute on chronic COPD exacerbation. Moderate persistent asthma with acute exacerbation Lactic acidosis Bipolar disorder Hypertension Anemia of chronic disease Plan Acute respiratory failure with hypoxia Acute on chronic COPD exacerbation. Moderate persistent asthma with acute exacerbation Respiratory status improved with nebulizers and steroid. Continue current bronchodilators and steroid Pulmonary Dr. Lofton input appreciated Lactic acidosis Likely secondary to hypoxia. Resolved. Left upper lobe lung mass Patient evaluated by Dr. Hunter who recommended bronchoscopy tomorrow. Bipolar disorder Continue home medication 05/11 Status post bronchoscopy today. Patient quite short of breath after the bronchoscopy. Continue nebulizer treatments. Wean oxygen to room air as tolerated. Antibiotics transition to oral Augmentin per pulmonary. Anticipating discharge in a.m. DVT prophylaxis: Lovenox subQ Advanced directive: Full code
[2024-05-11] MEDS: HYDROCODONE/APAP 5/325 MG TAB PO PRN (21:06)
[2024-05-12] MEDS: ENOXAPARIN 40 MG/0.4 ML SQ SCH (07:43)
[2024-05-12 12:24] VITALS: TEMP 97.5
[2024-05-12 13:30] VITALS: O2SAT 94
--- NOTE | 2024-05-12 16:00 | P.DS ---
Admission Date: 05/09/24 Discharge Date: 05/12/24 Disposition: ROUTINE DISCHARGE Discharge Condition: FAIR Reason for Admission: Shortness of breath Brief History of Present Illness: Patient is a 63-year-old female with a past medical history significant asthma, bipolar disorder, COPD, hypertension who presented complaints of shortness of breath. Patient was seen in the hospital one week prior for similar symptoms and patient was discharged home after symptoms improved. Patient reported that she experienced shortness of breath since discharge. Patient reported associated signs and symptoms of cough, chills, chest tightness, headache and subjective fever. Images done in the emergency department demonstrated left upper lobe mass. Patient was hypoxic and wheezing. She was admitted for further management. Hospital Course: Diagnosis Acute respiratory failure with hypoxia Acute on chronic COPD exacerbation. Moderate persistent asthma with acute exacerbation Lactic acidosis Bipolar disorder Hypertension Anemia of chronic disease Patient admitted to the medical floor and the following medical problems addressed: Acute respiratory failure with hypoxia Acute on chronic COPD exacerbation. Moderate persistent asthma with acute exacerbation Respiratory status improved with nebulizers and steroid and antibiotic. Patient evaluated by pulmonary Dr. Lofton who assisted with management. Respiratory status improved patient weaned off oxygen to room air. She was not hypoxic with ambulation and did not qualify for home oxygen. Patient discharged with bronchodilators, Augmentin and a few days of oral steroid. Lactic acidosis Likely secondary to hypoxia. Resolved. Left upper lobe lung mass Dr. Hunter performed bronchoscopy and biopsy taken. Patient informed to follow-up with Dr. Lofton next week regarding the biopsy result. Bipolar disorder Continued home medication Vital Signs/Physical Exam: Temp Pulse Resp BP Pulse Ox 97.5 F 86 22 H 140/76 94 05/12/24 12:00 05/12/24 12:05/12/24 12:05/12/24 12:05/12/24 12:00 General: Alert, In no apparent distress, Oriented x3 HEENT: Mucous membr. moist/pink Neck: Supple, JVD not distended Respiratory: Clear to auscultation bilaterally, Normal air movement Cardiovascular: No edema, Regular rate/rhythm, Normal S1 S2 Gastrointestinal: Normal bowel sounds, Soft and benign, Non-distended Musculoskeletal: No swelling Neurological: Normal strength at 5/5 x4 extr, Cranial nerves 3-12 intact Laboratory Data at Discharge: WBC 9.30 thou/uL (4.3-10.9) 05/10/24 04:00 Hgb 14.3 g/dL (12.0-15.0) D 05/10/24 04:00 Hct 44.3 % (36.0-45.0) 05/10/24 04:00 Plt Count 430 thou/uL (152-406) H 05/10/24 04:00 PT 10.9 SECONDS (9.4-12.5) 05/09/24 15:46 INR 1.04 05/09/24 15:46 APTT 22.6 SECONDS (24.3-36.9) L 05/09/24 15:46 Sodium 145 mEq/L (136-145) D 05/10/24 04:00 Potassium 4.3 mEq/L (3.5-5.1) D 05/10/24 04:00 BUN 12 mg/dL (7-18) 05/10/24 04:00 Creatinine 0.89 mg/dL (0.55-1.02) 05/10/24 04:00 Glucose 155 mg/dL (74-106) H 05/10/24 04:00 Phosphorus 2.6 mg/dL (2.5-4.9) 05/10/24 04:00 Magnesium 2.2 mg/dL (1.6-2.4) 05/10/24 04:00 Home Medications: Quetiapine [Seroquel*] 100 mg PO BEDTIME 05/09/24 Albuterol Neb [Proventil 0.083% Neb Soln] 2.5 mg NEB [id number] #120 amp 05/12/24 Amox/Clavulanate [Augmentin 875-125 Tab*] 875 mg PO BID #12 tab 05/12/24 Hydrocodone 5/APAP 325 [[place] 5/325*] 1 tab PO Q6H PRN #15 tab 05/12/24 Ipratropium Neb [Atrovent*] 0.5 mg NEB [id number] #120 amp 05/12/24 Mometasone/Formoterol [Dulera 200 Mcg/5 Mcg Inhaler] 1 puff IH BID #1 ea 05/12/24 Nebulizer 1 each MC TID #1 ea 05/12/24 predniSONE [Prednisone*] 20 mg PO BID #10 tab 05/12/24 New Medications: Ipratropium Neb [Atrovent*] 0.5 mg NEB [id number] #120 amp Albuterol Neb [Proventil 0.083% Neb Soln] 2.5 mg NEB [id number] #120 amp Amox/Clavulanate [Augmentin 875-125 Tab*] 875 mg PO BID #12 tab Mometasone/Formoterol [Dulera 200 Mcg/5 Mcg Inhaler] 1 puff IH BID #1 ea Nebulizer 1 each MC TID #1 ea Hydrocodone 5/APAP 325 [[place] 5/325*] 1 tab PO Q6H PRN #15 tab PRN Reason: Pain Scale 5-7 (Moderate) predniSONE [Prednisone*] 20 mg PO BID #10 tab Diet: AHA Activity: Ad kelli Followup: Aftab Lofton MD [ACTIVE - CAN ADMIT] - 1 Week NONE,NONE [Primary Care Provider] - 1-2 Weeks Time spent managing pt's care (in minutes): 34
[2024-05-12 17:25] VITALS: BP 147/75
--- NOTE | 2024-05-15 12:28 | EKG ---
Test Date: 2024-05-09 Test Time: 14:03:29 Labor Trainer: CHACORTA MEASUREMENT RESULTS: Intervals: Rate: 109 OR: 122 QRSD: 62 QT: 310 QTc: 417 [place]: P: 86 OR: 122 QRS: 72 T: 81 INTERPRETIVE STATEMENTS: Sinus tachycardia Otherwise normal ECG Compared to ECG 05/09/2024 14:01:57 ST (T wave) deviation no longer present Electronically Signed On 05-15-24 12:17:17 COMMERCIAL DIVER by Giovanni Mccoy
--- NOTE | 2024-05-15 12:28 | EKG ---
Test Date: 2024-05-09 Test Time: 14:01:57 Power Builder Developer: CHACORTA MEASUREMENT RESULTS: Intervals: Rate: 117 OH: 118 QRSD: 66 QT: 348 QTc: 485 [place]: P: 82 OH: 118 QRS: 71 T: 130 INTERPRETIVE STATEMENTS: Sinus tachycardia Nonspecific ST and T wave abnormality Abnormal ECG Compared to ECG 05/01/2024 12:51:13 ST (T wave) deviation now present Myocardial infarct finding no longer present Electronically Signed On 05-15-24 12:17:19 NECKTIE STITCHER by Giovanni Mccoy
== END 2024-05-12 18:20 | disposition home or self-care (01) | DRG 180 ==
LOC: ER 13:37 → ERHOLD 19:07 → 2ND 20:58
PROVIDERS: ADMIT Internal Medicine; ATTEND Internal Medicine
PROC: 0BB88ZX Excision of Left Upper Lobe Bronchus, Via Natural or Artificial Opening Endoscopic, Diagnostic (ICD-10-PCS; principal; 2024-05-11 08:00)
DX: C34.12 Malignant neoplasm of upper lobe, left bronchus or lung (principal); J18.9 Pneumonia, unspecified organism; J96.01 Acute respiratory failure with hypoxia; J44.1 Chronic obstructive pulmonary disease with (acute) exacerbation; J44.0 Chronic obstructive pulmonary disease with (acute) lower respiratory infection; J45.41 Moderate persistent asthma with (acute) exacerbation; E87.20 Acidosis, unspecified; F31.9 Bipolar disorder, unspecified; I12.9 Hypertensive chronic kidney disease with stage 1 through stage 4 chronic kidney disease, or unspecified chronic kidney disease; N18.2 Chronic kidney disease, stage 2 (mild); D63.1 Anemia in chronic kidney disease; F17.210 Nicotine dependence, cigarettes, uncomplicated; Z88.5 Allergy status to narcotic agent; Z11.52 Encounter for screening for COVID-19; Z79.52 Long term (current) use of systemic steroids; Z79.899 Other long term (current) drug therapy
CPT/HCPCS: 36415; 71045; 71250; 76000; 80048; 83605; 83735; 83880; 84100; 84484; 85025; 85610; 85730; 87015; 87040; 87102; 87116; 87206; 87804; 87811; 88108; 88305; 88312; 93005; 94640; 94760; 96361; 96374; 99285; J0696; J1650; J2003; J2371; J2704; J2919; J3010; J7030; J7050; J7120; J7512; J7613; J7614; J7644

== ENCOUNTER 2024-06-08 23:51 | Emergency (ER) | payer MEDICAID, OTHER ==
--- OUTSIDE RECORDS SUMMARY | 2024-06-08 23:55 | XMS REPORT | Continuity of Care Document ---
Author Name Unknown Address [address] [facility] [address] [place] [address] [facility] [place] Address [address] [facility]. [address] [place] [address] Care Team Providers Care Mink Slicer Name Role Phone Rolly CARTER, Aftab Srinivasan Primary Care Physician Awilda Alatorre Attending Clinician Unavailable Lucy Escobedo Attending Clinician Unavailable Payers Payer Name Policy Type Policy Number Effective Date Expirati on Date Source [facility] 53 [id number] 2019 00:00:00 [facility] Problems Condition Name Condition Details Condition Category Status Onset Date Resolution Date Last Treatment Date Treating Clinician Comments Source [id number] Primary insomnia Problem [facility] Current smoker Current smoker Problem [facility] [id number] Depression with anxiety Problem [facility] [id number] Abnormal renal function test Problem [facility] [id number] Asthma, unspecifie d asthma severity, unspecifie d whether complicate d, unspecifie d whether persistent Problem [facility] [id number] Restless legs syndrome Problem [facility] [id number] Essential hypertensi on Problem [facility] [id number] Overweight (BMI 25.0-29.9) Problem [facility] Bipolar disorder Bipolar disorder Problem [facility] [id number] Prediabete s Problem [facility] [id number] Electrolyt e abnormalit y Problem [facility] [id number] Abnormal CBC Problem [facility] [id number] Acquired hypothyroi dism Problem [facility] [id number] Tobacco use Problem [facility] [id number] COPD exacerbati on Problem [facility] Allergies, Adverse Reactions, Alerts Allergy Name Allergy Type Status Severity Reaction(s) Onset Date Inactive Date Treating Clinician Comments Source codeine Propensi ty to adverse reaction to drug Active 05-30 00:00: 00 Rigo Bo codeine codeine Active Unknown [facility] Social History Social Habit Start Date Stop Date Quantity Comments Source History of Tobacco Use Current Smoker [facility] Sex Assigned At [facility] Smoking Status Start Date Stop Date Source Current Smoker 2024-05-17 00:00:00 [facility] Never Smoker [facility] Medications Ordered Medication Name Filled Medication Name Start Date Stop Date Current Medication? Ordering Clinician Indication Dosage Frequency Signature (SIG) Comments Components Source tramadol 50 mg tablet 06-02 00:00: 00 Yes 1mg Rigo Bo buspirone 10 mg tablet 05-30 00:00: 00 Yes mg Rigo Bo Trelegy Ellipta 100 mcg-62.5 mcg-25 mcg powder for inhalation 05-30 00:00: 00 Yes 1mcg iRgo Bo prednisone 10 mg tablets in a dose pack 05-30 00:00: 00 Yes 1mg Rigo Bo Atrovent Atrovent 2-24 00:00: 00 No Atrovent Dulera 200-5 MCG/ACT Dulera 200-5 MCG/ACT 2-24 00:00: 00 No Dulera 200-5 MCG/ACT ipratropium bromide 0.02 % solution for inhalation 05-13 00:00: 00 Yes % Rgio Bo Dulera 200 mcg-5 mcg/actuati on HFA aerosol inhaler 05-13 00:00: 00 Yes mcg/act uation Rigo Bo hydrocodone 5 mg-acetamin ophen 325 mg tablet 05-12 00:00: 00 Yes mg Rigo Bo prednisone 20 mg tablet 05-12 00:00: 00 Yes mg Rigo Bo albuterol sulfate 2.5 mg/3 mL (0.083 %) solution for nebulizatio n 05-12 00:00: 00 Yes /3 mL (0.083 %) Rigo Bo Levothyroxi ne Sodium 25 MCG Levothyroxi ne [...] MG No QD rOPINIRole HCl 0.5 MG predniSONE 20 MG predniSONE 20 MG No predniSONE 20 MG Immunizations Ordered Immunization Name Filled Immunization Name Date Status Comments Source Flucelvax - single dose syringe Flucelvax - single dose syringe 2019-01-13 14:55:00 Completed [facility] Flucelvax - single dose syringe Flucelvax - single dose syringe 2019-01-13 14:55:00 Completed [facility] Flucelvax - single dose syringe Flucelvax - single dose syringe 2019-01-13 14:55:00 Completed [facility] Flucelvax - single dose syringe Flucelvax - single dose syringe 2019-01-13 14:55:00 Completed [facility] Flucelvax - single dose syringe Flucelvax - single dose syringe 2019-01-13 14:55:00 Completed [facility] Flucelvax - single dose syringe Flucelvax - single dose syringe 2019-01-13 14:55:00 Completed [facility] Flucelvax - single dose syringe Flucelvax - single dose syringe 2019-01-13 00:00:00 Completed [facility] Flucelvax - single dose syringe Flucelvax - single dose syringe Unknown Completed [facility] Flucelvax - single dose syringe Flucelvax - single dose syringe Unknown Completed [facility] Flucelvax - single dose syringe Flucelvax - single dose syringe Unknown Completed [facility] Flucelvax - single dose syringe Flucelvax - single dose syringe Unknown Completed [facility] Flucelvax (ccIIV4) - SDS - 0.5mL Flucelvax (ccIIV4) - SDS - 0.5mL Unknown Completed [facility] Flucelvax (ccIIV4) - SDS - 0.5mL Flucelvax (ccIIV4) - SDS - 0.5mL Unknown Completed [facility] Flucelvax (ccIIV4) - SDS - 0.5mL Flucelvax (ccIIV4) - SDS - 0.5mL Unknown Completed [facility] Flucelvax (ccIIV4) - SDS - 0.5mL Flucelvax (ccIIV4) - SDS - 0.5mL Unknown Completed [facility] Flucelvax (ccIIV4) - SDS - 0.5mL Flucelvax (ccIIV4) - SDS - 0.5mL Unknown Completed [facility] Flucelvax (ccIIV4) - SDS - 0.5mL Flucelvax (ccIIV4) - SDS - 0.5mL Unknown Completed [facility] Flucelvax (ccIIV4) - SDS - 0.5mL Flucelvax (ccIIV4) - SDS - 0.5mL Unknown Completed [facility] Flucelvax (ccIIV4) - SDS - 0.5mL Flucelvax (ccIIV4) - SDS - 0.5mL Unknown Completed [facility] Flucelvax (ccIIV4) - SDS - 0.5mL Flucelvax (ccIIV4) - SDS - 0.5mL Unknown Completed [facility] Flucelvax (ccIIV4) - SDS - 0.5mL Flucelvax (ccIIV4) - SDS - 0.5mL Unknown Completed [facility] Fluarix (IIV3) - SDS - 0.5mL Fluarix (IIV3) - SDS - 0.5mL Unknown Completed [facility] Vital Signs Vital Name Observation Time Observation Value Comments S ource height 2024-05-17 09:00:00 62.00 [in_i] Com [facility] weight 2024-05-17 09:00:00 158.2 [lb_av] Co mmon [facility] temperature 2024-05-17 09:00:00 98.6 [degF] Com [facility] bmi 2024-05-17 09:00:00 28.93 kg/m2 Comm on [facility] oximetry 2024-05-17 09:00:00 94 % Commo n [facility] respiratory rate 2024-05-17 09:00:00 16 /min Common [facility] blood pressure systolic 2024-05-17 09:00:00 132 mm[Hg] [facility] blood pressure diastolic 2024-05-17 09:00:00 88 mm[Hg] [facility] height 2024-03-07 10:00:00 62.00 [in_i] Com [facility] weight 2024-03-07 10:00:00 169.4 [facility]lb_av[facility] 2024-[facility]-07 10:00:00 97.4 [degF] Com [facility] bmi 2024-03-07 10:00:00 30.98 kg/m2 Comm on [facility] oximetry 2024-03-07 10:00:00 95 % Commo n [facility] respiratory rate 2024-03-07 10:00:00 16 /min [facility] blood pressure systolic 2024-03-07 10:00:00 135 mm[Hg] [facility] blood pressure diastolic 2024-03-07 10:00:00 76 mm[Hg] [facility] height 2023-12-07 08:20:00 62.00 [in_i] Com [facility] weight 2023-12-07 08:20:00 175.4 [lb_av] [facility] 2023-12-07 08:20:00 97.8 [degF] Com [facility] bmi 2023-12-07 08:20:00 32.08 kg/m2 Comm on [facility] oximetry 2023-12-07 08:20:00 96 % Commo n [facility] respiratory rate 2023-12-07 08:20:00 16 /min Common [facility] blood pressure systolic 2023-12-07 08:20:00 120 mm[Hg] Common Spiri t - [facility] blood pressure diastolic 2023-12-07 08:20:00 82 mm[Hg] [facility] height 2023-12-07 08:20:00 62.00 [in_i] Com [facility] weight 2023-12-07 08:20:00 175.4 [lb_av] Co mmon [facility] temperature 2023-12-07 08:20:00 97.8 [degF] Com [facility] bmi 2023-12-07 08:20:00 32.08 kg/m2 Comm on [facility] oximetry 2023-12-07 08:20:00 96 % Commo n [facility] respiratory rate 2023-12-07 08:20:00 16 /min Common [facility] blood pressure systolic 2023-12-07 08:20:00 120 mm[Hg] Common Spiri t [facility] blood pressure diastolic 2023-12-07 08:20:00 82 mm[Hg] Common [facility] height 2023-09-06 08:20:00 62.00 [in_i] Com [facility] weight 2023-09-06 08:20:00 173.8 [lb_av] Co mmon [facility] temperature 2023-09-06 08:20:00 97.3 [degF] Com [facility] bmi 2023-09-06 08:20:00 31.78 kg/m2 Comm on [facility] oximetry 2023-09-06 08:20:00 90 % Commo n [facility] respiratory rate 2023-09-06 08:20:00 16 /min Common [facility] blood pressure systolic 2023-09-06 08:20:00 132 mm[Hg] Common [facility] blood pressure diastolic 2023-09-06 08:20:00 79 mm[Hg] [facility] height 2023-03-17 14:20:00 62.00 [in_i] Com [facility] weight 2023-03-17 14:20:00 170.0 [lb_av] Co mmon [facility] temperature 2023-03-17 14:20:00 98.2 [degF] Com [facility] bmi 2023-03-17 14:20:00 31.09 kg/m2 Comm on [facility] oximetry 2023-03-17 14:20:00 95 % Commo n [facility] respiratory rate 2023-03-17 14:20:00 15 /min [facility] blood pressure systolic 2023-03-17 14:20:00 106 mm[Hg] [facility] blood pressure diastolic 2023-03-17 14:20:00 71 mm[Hg] Common [facility] height 2023-02-03 13:00:00 62.00 [in_i] Com [facility] weight 2023-02-03 13:00:00 168.2 [lb_av] Co mmon [facility] temperature 2023-02-03 13:00:00 97.9 [degF] Com [facility] bmi 2023-02-03 13:00:00 30.76 kg/m2 Comm on [facility] oximetry 2023-02-03 13:00:00 92 % Commo n [facility] respiratory rate 2023-02-03 13:00:00 18 /min [facility] blood pressure systolic 2023-02-03 13:00:00 135 mm[Hg] [facility] blood pressure diastolic 2023-02-03 13:00:00 85 mm[Hg] Common [facility] height 2022-11-03 13:40:00 62.00 [in_i] Com [facility] weight 2022-11-03 13:40:00 171.2 [lb_av] Co mmon [facility] temperature 2022-11-03 13:40:00 98.0 [degF] Com [facility] bmi 2022-11-03 13:40:00 31.31 kg/m2 Comm on [facility] oximetry 2022-11-03 13:40:00 94 % Commo n [facility] respiratory rate 2022-11-03 13:40:00 16 /min Common [facility] blood pressure systolic 2022-11-03 13:40:00 116 mm[Hg] Common [facility] blood pressure diastolic 2022-11-03 13:40:00 79 mm[Hg] Common [facility] height 2022-05-04 10:40:00 62.00 [in_i] Com [facility] weight 2022-05-04 10:40:00 172.6 [lb_av] Co [facility] temperature 2022-05-04 10:40:00 97.4 [degF] Com [facility] bmi 2022-05-04 10:40:00 31.57 kg/m2 Comm on [facility] oximetry 2022-05-04 10:40:00 96 % Commo n [facility] respiratory rate 2022-05-04 10:40:00 16 /min Common [facility] blood pressure systolic 2022-05-04 10:40:00 128 mm[Hg] [facility] blood pressure diastolic 2022-05-04 10:40:00 72 mm[Hg] [facility] height 2022-01-29 11:40:00 62.00 [in_i] Com [facility] weight 2022-01-29 11:40:00 168.2 [lb_av] Co mmon [facility] temperature 2022-01-29 11:40:00 97.6 [degF] Com [facility] bmi 2022-01-29 11:40:00 30.76 kg/m2 Comm on [facility] oximetry 2022-01-29 11:40:00 95 % Commo n [facility] respiratory rate 2022-01-29 11:40:00 17 /min Common [facility] blood pressure systolic 2022-01-29 11:40:00 124 mm[Hg] [facility] blood pressure diastolic 2022-01-29 11:40:00 76 mm[Hg] Common [facility] height 2021-10-21 10:00:00 62.00 [in_i] Com [facility] weight 2021-10-21 10:00:00 159.4 [lb_av] Co mmon [facility] temperature 2021-10-21 10:00:00 97.0 [degF] Com [facility] bmi 2021-10-21 10:00:00 29.15 kg/m2 Comm on [facility] oximetry 2021-10-21 10:00:00 94 % Commo n [facility] respiratory rate 2021-10-21 10:00:00 18 /min Common [facility] blood pressure systolic 2021-10-21 10:00:00 116 mm[Hg] Common Spiri t [facility] blood pressure diastolic 2021-10-21 10:00:00 71 mm[Hg] Common [facility] height 2021-07-15 14:20:00 62.00 [in_i] Com [facility] weight 2021-07-15 14:20:00 160 [lb_av] Comm on [facility] bmi 2021-07-15 14:20:00 29.26 kg/m2 Comm on [facility] height 2021-04-16 10:40:00 62.00 [in_i] Com [facility] weight 2021-04-16 10:40:00 160 [lb_av] Comm on [facility] bmi 2021-04-16 10:40:00 29.26 kg/m2 Comm on [facility] height 2021-03-26 10:20:00 62.00 [in_i] Com [facility] weight 2021-03-26 10:20:00 160 [lb_av] Comm on [facility] bmi 2021-03-26 10:20:00 29.26 kg/m2 Comm on [facility] height 2021-03-06 08:00:00 62.00 [in_i] Com [facility] weight 2021-03-06 08:00:00 160 [lb_av] Comm on [facility] 2021-03-06 08:00:00 29.26 kg/m2 Comm on [facility] height 2021-02-18 13:00:00 62.00 [in_i] Com [facility] weight 2021-02-18 13:00:00 160 [lb_av] Comm on [facility] bmi 2021-02-18 13:00:00 29.26 kg/m2 Comm on [facility] blood pressure diastolic 2021-01-20 10:40:00 84 mm[Hg] Common Spiri [facility] height 2021-01-20 10:40:00 62.00 [in_i] Com [facility] weight 2021-01-20 10:40:00 159 [lb_av] Comm on [facility] temperature 2021-01-20 10:40:00 97.7 [degF] Com [facility] bmi 2021-01-20 10:40:00 29.08 kg/m2 Comm on [facility] oximetry 2021-01-20 10:40:00 95 % Commo n [facility] respiratory rate 2021-01-20 10:40:00 18 /min [facility] blood pressure systolic 2021-01-20 10:40:00 132 mm[Hg] [facility] height 2020-12-23 10:20:00 62.00 [in_i] Com mon [facility] weight 2020-12-23 10:20:00 158.4 [lb_av] Co mmon [facility] temperature 2020-12-23 10:20:00 97.0 [degF] Com [facility] bmi 2020-12-23 10:20:00 28.97 kg/m2 Comm on [facility] oximetry 2020-12-23 10:20:00 96 % Commo n [facility] respiratory rate 2020-12-23 10:20:00 20 /min [facility] Body Temperature 2024-06-02 13:47:00 98.40 degrees Rigo F Anupam Heart Rate 2024-06-02 13:47:00 72.00 /min Radha en F Anupam Respiratory Rate 2024-06-02 13:47:00 16.00 /min Rigo F Anupam BP Systolic 2024-06-02 13:47:00 113 mm[Hg] Step hen F Anupam BP Diastolic 2024-06-02 13:47:00 59 mm[Hg] Adam phen F Anupam Weight Measured 2024-06-02 13:47:00 157.60 pounds Rigo F Anupam Height Measured 2024-06-02 13:47:00 63.00 inches Rigo F Anupam BP Systolic 2024-05-30 14:56:00 125 mm[Hg] Step hen F Anupam BP Diastolic 2024-05-30 14:56:00 87 mm[Hg] Adam phen F Anupam Weight Measured 2024-05-30 14:56:00 160.40 pounds Rigo F Anupam Height Measured 2024-05-30 14:56:00 63.00 inches Rigo F Anupam Body Temperature 2024-05-30 14:56:00 97.80 degrees Rigo Bo Heart Rate 2024-05-30 14:56:00 102.00 /min Cricket Bo Respiratory Rate 2024-05-30 14:56:00 Rigo Bo Encounters Start Date/Time End Date/Time Encounter Type Admission Type Attending [facility] Care Department Encounter ID Source 2023-09-06 08:16:00 Outpatient Awilda Alatorre [facility] ST[facility] [id number] [facility] 2023-02-02 15:57:00 Outpatient Awilda Alatorre STLMLC ST[facility] [id number] [facility] 2022-05-25 08:58:00 Outpatient Awilda Alatorre STLMLC STL[facility] [id number] [facility] 2022-04-29 13:40:00 Outpatient Awilda Alatorre STLMLC ST[facility] [id number] [facility] 2022-01-28 07:34:00 Outpatient Awilda Alatorre STLMLC ST[facility] [id number] [facility] 2022-01-21 15:46:00 Outpatient Awilda Alatorre STLMLC ST[facility] [id number] [facility] 2022-01-20 07:51:00 Outpatient Awilda Alatorre STLMLC ST[facility] [id number] [facility] 2021-10-21 09:54:00 Outpatient Awilda Alatorre STLMLC ST[facility] [id number] [facility] 2021-04-16 14:39:14 Outpatient [place] STLML[facility] ST[facility] [id number] [facility] 2021-04-16 14:31:06 Outpatient [place]ilda aguilar STLMLC STL[facility]C [id number] [facility] 2021-04-16 14:25:23 Outpatient Awilda Alatorre STLMLC ST[facility] [id number] [facility] 2021-04-16 14:12:59 Outpatient Awilda Alatorre STLMLC ST[facility] [id number] [facility] 2021-04-16 12:20:08 Outpatient Awilda Alatorre STLMLC STL[facility] [id number] [facility] 2021-04-16 12:16:05 Outpatient Awilda Alatorre STLMLC STL[facility]C [id number] [facility] 2021-04-16 12:15:10 Outpatient STLMLC STL[facility]C [id number] [facility] 2021-04-16 11:40:31 Outpatient Lucy Escobedo STLMLC ST[facility] [id number] [facility] 2024-06-02 13:29:21 2024-06-02 13:29:21 Outpatient [facility] [id number] Rigo Bo 2024-06-02 00:00:00 2024-06-02 00:00:00 Outpatient Visit [facility] [id number] Rigo Bo 2024-05-30 15:07:47 2024-05-30 15:07:47 Outpatient [facility] [id number] Rigo Bo 2024-05-30 00:00:00 2024-05-30 00:00:00 Outpatient Visit [facility] [id number] Rigo Bo 2024-05-24 00:00:00 2024-05-24 00:00:00 (TEL) STLMLC STLMLC [id number] [facility] 2024-05-17 00:00:00 2024-05-17 00:00:00 (HOSP F/U) Hospital Follow Up STLMLC STL[facility]C [id number] [facility] 2024-05-15 00:00:00 2024-05-15 00:00:00 (TEL) STLMLC STLMLC [id number] [facility] 2024-05-08 00:00:00 2024-05-08 00:00:00 (TEL) STLMLC STLMLC [id number] [facility] 2024-05-01 00:00:00 2024-05-01 00:00:00 (TEL) STLMLC STLMLC [id number] [facility] 2024-03-07 00:00:00 2024-03-07 00:00:00 OFFICE VISIT ESTAB PT LEVEL 4 [facility]LMLC STLMLC [id number] [facility] 2023-12-07 00:00:00 2023-12-07 00:00:00 OFFICE VISIT ESTAB PT LEVEL 4 [facility]C STL[facility]C [id number] [facility] 2023-09-20 00:00:00 2023-09-20 00:00:00 (TEL) STLMLC STLMLC [id number] [facility] 2023-09-09 00:00:00 2023-09-09 00:00:00 (TEL) STLMLC STLMLC [id number] [facility] 2023-09-06 00:00:00 2023-09-06 00:00:00 OFFICE VISIT ESTAB PT LEVEL 4 [facility]LMLC STL[facility]C [id number] [facility] 2023-08-04 00:00:00 2023-08-04 00:00:00 (TEL) STLMLC STLMLC [id number] [facility] 2023-06-17 00:00:00 2023-06-17 00:00:00 (TEL) STLMLC STLMLC [id number] [facility] 2023-03-18 00:00:00 2023-03-18 00:00:00 (TEL) STLMLC STLMLC [id number] [facility] 2023-03-17 00:00:00 2023-03-17 00:00:00 OFFICE VISIT ESTAB PT LEVEL 4 [facility]LMLC STL[facility]C [id number] [facility] 2023-02-04 00:00:00 2023-02-04 00:00:00 (TEL) STLMLC STLMLC [id number] [facility] 2023-02-03 00:00:00 2023-02-03 00:00:00 OFFICE VISIT ESTAB PT LEVEL 3 [facility]LMLC STLMLC [id number] [facility] 2022-12-28 00:00:00 2022-12-28 00:00:00 (TEL) STLMLC STLMLC [id number] [facility] 2022-11-03 00:00:00 2022-11-03 00:00:00 OFFICE VISIT ESTAB PT LEVEL 3 STLMLC STLMLC [id number] [facility] 2022-10-20 00:00:00 2022-10-20 00:00:00 (TEL) STLMLC STLMLC [id number] [facility] 2022-08-04 00:00:00 2022-08-04 00:00:00 (TEL) STLMLC STLMLC [id number] [facility] 2022-06-02 00:00:00 2022-06-02 00:00:00 (TEL) STLMLC STLMLC [id number] [facility] 2022-05-27 00:00:00 2022-05-27 00:00:00 (TEL) STLMLC STLMLC [id number] [facility] 2022-05-04 00:00:00 2022-05-04 00:00:00 OFFICE VISIT ESTAB PT LEVEL 4 [facility]LMLC STL[facility]C [id number] [facility] 2022-02-17 00:00:00 2022-02-17 00:00:00 (TEL) STLMLC STLMLC [id number] [facility] 2022-01-29 00:00:00 2022-01-29 00:00:00 OFFICE VISIT EST PT LEVEL 3 [facility]LMLC STL[facility]C [id number] [facility] 2021-10-21 00:00:00 2021-10-21 00:00:00 OFFICE VISIT EST PT LEVEL 3 [facility]LMLC STL[facility]C [id number] [facility] 2021-10-14 00:00:00 2021-10-14 00:00:00 (TEL) STLMLC STLMLC [id number] [facility] 2021-07-15 00:00:00 2021-07-15 00:00:00 OFFICE VISIT EST PT LEVEL 3 [facility]LMLC STL[facility]C [id number] [facility] 2021-06-13 00:00:00 2021-06-13 00:00:00 (TEL) STLMLC STLMLC [id number] [facility] 2021-04-16 00:00:00 2021-04-16 00:00:00 OFFICE VISIT EST PT LEVEL 3 STLMLC STLMLC [id number] [facility] 2021-04-16 00:00:00 2021-04-16 00:00:00 (TEL) STLMLC STLMLC [id number] [facility] 2021-04-14 00:00:00 2021-04-14 00:00:00 (TEL) STLMLC STLMLC [id number] [facility] 2021-03-26 00:00:00 2021-03-26 00:00:00 OL DIG E/M SVC 11-20 MIN STLMLC STLMLC [id number] [facility] 2021-03-19 00:00:00 2021-03-19 00:00:00 (TEL) STLMLC STLMLC [id number] [facility] 2021-03-06 00:00:00 2021-03-06 00:00:00 OFFICE VISIT EST PT LEVEL 3 [facility]LMLC STL[facility]C [id number] [facility] 2021-02-25 00:00:00 2021-02-25 00:00:00 (TEL) STLMLC STLMLC [id number] [facility] 2021-02-18 00:00:00 2021-02-18 00:00:00 OFFICE VISIT EST PT LEVEL 3 [facility]LMLC STL[facility]C [id number] [facility] 2021-01-20 00:00:00 2021-01-20 00:00:00 OFFICE VISIT EST PT LEVEL 3 [facility]C STL[facility]C [id number] [facility] 2020-12-23 00:00:00 2020-12-23 00:00:00 OFFICE VISIT ESTAB PT LEVEL 4 [facility]C STL[facility]C [id number] [facility] 2020-10-07 00:00:00 2020-10-07 00:00:00 Outpatient [facility]C STL[facility]C [id number] [facility] 2020-10-02 00:00:00 2020-10-02 00:00:00 Outpatient [facility]C ST[facility] [id number] [facility] 2020-09-13 00:00:00 2020-09-13 00:00:00 Outpatient [facility]C STL[facility]C [id number] [facility] 2020-08-16 00:00:00 2020-08-16 00:00:00 Outpatient [facility] [id number] [facility] [facility] 2020-06-27 00:00:00 2020-06-27 00:00:00 Outpatient STLMLC STLMLC [id number] [facility] 2020-06-20 00:00:00 2020-06-20 00:00:00 Outpatient STLMLC STLMLC [id number] [facility] 2020-04-04 00:00:00 2020-04-04 00:00:00 Outpatient STLMLC STLMLC [id number] [facility] 2020-03-08 00:00:00 2020-03-08 00:00:00 Outpatient STLMLC STLMLC [id number] [facility] 2020-03-06 00:00:00 2020-03-06 00:00:00 Outpatient STLMLC STLMLC [id number] [facility] 2019-11-14 15:20:00 2019-11-14 15:20:[address] [facility] [id number] [facility] 2019-10-05 11:34:00 2019-10-05 11:34:[address] [facility] [id number] [facility] 2019-10-05 10:45:00 2019-10-05 10:45:[address] [facility] [facility] [id number] [facility] 2019-02-06 21:16:00 2019-02-06 21:16:[address] [facility] [id number] [facility] 2019-02-02 13:53:00 2019-02-02 13:53:[address] [facility] [facility] [id number] [facility] 2019-01-26 08:40:00 2019-01-26 08:40:[address] [facility] [id number] [facility] 2019-01-16 08:36:00 2019-01-16 08:36:00 [facility] [id number] [facility] 2019-01-13 11:00:00 2019-01-13 11:00:[address] [facility] [id number] [facility] 2018-12-22 14:47:00 2018-12-22 14:47:[address] [facility] [id number] [facility] 2018 15:47:00 2018 15:47:[address] [facility] [facility] [id number] [facility] 2018 13:00:00 2018 13:00:[address] [facility] [facility] [id number] [facility] Results Test Description Test Time Test Comments Results Result Co mments Source CULTURE, [id number] 00:00:00* Test Item Value Reference Range Interpretation Comme nts CULTURE, URINE (test code = 630-4) SPECIMEN NUMBER: [id number] 3D SCR MARQUITA BILAT W/CAD3D SCR MARQUITA BILAT W/CAD Notes Date/Time Note [facility]:00:00 [facility]
[2024-06-09 01:01] LABS: PT Prothrombin Time 11.2 SECONDS (10-13.0); PTT, Activated Partial Thromb 21.8 SECONDS (27.2-37.4); Protime INR 0.98
[2024-06-09 01:09] LABS: MPV 11.7 fL (7.6-11.3); Platelets 250 thou/uL (152-406)
[2024-06-09 01:10] LABS: Absolute Basophils 0.2 K/uL (0-0.5); Absolute Eosinophils 0.6 K/uL (0-0.5); Absolute Monocytes 1.6 K/uL (0.1-1.3); Absolute Neutrophil 7.1 K/uL (1.8-8.0); Basophils % 1.3 % (0-1.3); Eosinophils % 4.5 % (0-4.4); Hematocrit 42.3 % (36.0-45.0); Hemoglobin 14.4 g/dL (12.0-15.0); Lymphocytes % 29.6 % (15.3-44.8); MCH 31.2 pg (27.0-35.0); MCHC 33.9 g/dL (32.0-36.0); Monocytes % 11.8 % (3.3-12.3); Neutrophils % 52.8 % (41.7-73.7); Nucleated Red Blood Cells % 0.1 % (0-0); Red Cell Distribution Width 15.1 % (12.1-15.2)
[2024-06-09 01:14] LABS: ALT/SGPT 66 U/L (13-56); Albumin 2.9 g/dL (3.4-5.0); Albumin/Globulin Ratio 0.7 (1.1-1.8); Alkaline Phosphatase 97 U/L (45-117); Anion Gap 13.7 mEq/L (5.0-15.0); BUN Blood Urea Nitrogen 10 mg/dL (7-18); Bicarbonate 25 mEq/L (21-32); Bilirubin Direct 0.4 mg/dL (0-0.2); Bilirubin Indirect, Calculated 0.7 mg/dL (0.2-0.8); Bilirubin Total 1.1 mg/dL (0.2-1.0); Creatine Phosphokinase 84 U/L (26-192); Glomerular Filtration Rate 98 ml/min (=/>90); Glucose Level 97 mg/dL (74-106); Lipase 146 U/L (13-75); NT PRO-BNP 120 pg/mL (<125); Protein, Total 6.9 g/dL (6.4-8.2); Sodium Level 137 mEq/L (136-145)
[2024-06-09 01:21] LABS: AST/SGOT 90 U/L (15-37); Magnesium 2.2 mg/dL (1.6-2.4); Potassium 3.7 mEq/L (3.5-5.1); Troponin High Sensitivity < 3.0 pg/mL (<58.9)
[2024-06-09 01:31] LABS: Arterial Blood Carboxyhemoglob 1.2 % (0-1.5); Blood Gas Oxyhemoglobin 91.2 % (94-97); Blood Gas THB 14.6 g/dl (12-18); Blood O2 Saturation 93.8 % (92-98.5)
[2024-06-09] MEDS ORDERED: ALBUTEROL 2.5 MG/3 ML NEB SOL ONE ×2 (01:34→06:28)
[2024-06-09] MEDS ORDERED: CEFTRIAXONE 1000 MG/VIAL ONE (01:34)
[2024-06-09] MEDS ORDERED: MORPHINE 4 MG/ML SYR ONE (01:35)
[2024-06-09] MEDS ORDERED: MORPHINE 2 MG/ML SYR ONE (01:35)
[2024-06-09] MEDS ORDERED: NA CHLORIDE 0.9% 50 ML ONE (01:35)
[2024-06-09] MEDS ORDERED: ONDANSETRON 4 MG/2 ML VIAL ONE (01:35)
[2024-06-09] MEDS ORDERED: METHYLPREDNISOLONE 125 MG INJ ONE (01:35)
[2024-06-09 04:06] LABS: Blood Morphology Comment NOT SEEN (NOT SEEN); Platelet Estimate ADEQ; White Blood Cell Scan OK (OK)
--- NOTE | 2024-06-09 05:34 | RAD REPORT ---
EXAM DESCRIPTION: Chest Abd Pelvis Wo Con CLINICAL HISTORY: CHEST PAIN COMPARISON: May 09, 2024 TECHNIQUE: Contiguous axial images of the chest, abdomen and pelvis were obtained without the administration of intravenous contrast followed by reconstruction images. The exam was performed according to our departmental dose-optimization program, which includes automated exposure control, adjustment of the mA and/or kV according to patient size and/or use of iterative reconstruction technique. FINDINGS: CHEST: MEDIASTINUM: The heart size is normal. No pericardial effusion. The aorta demonstrates normal course and caliber. No new mediastinal adenopathy. No axillary adenopathy. There is a small hiatal hernia. LUNGS/PLEURA: There is redemonstration to the previously described left upper lobe and hilar mass occ luding the segmental bronchi to the left upper lobe with diffuse postobstructive changes. The degree of postobstructive change has progressed from prior examination with only small portion of aer ated lung noted within the upper lobe. The mass invades the mediastinum extending through the region of the AP window and prevascular space. Small left pleural effusion. Interval increase size of scattered right lung nodules suggesting sequela of metastatic disease. SOFT TISSUES/BONES: There are no suspicious-appearing lytic or blastic osseous lesions. No acute osse ous abnormality. ABDOMEN/PELVIS: ORGANS: The liver is fatty infiltrated. The gallbladder, spleen, pancreas, and right adrenal gland ar e normal. The left renal gland demonstrates an indeterminate mass measuring 3.2 cm with density of approximately 35. This is stable from prior exam. The left kidney is normal. The right kidney is ante riorly displaced with a right posterior perinephric mass with multiple smaller satellite nodules. The mass demonstrates a density of 33 and measures approximately 2.5 x 4.3 cm. The mass extends to an d abuts the fascia posteriorly. GI/BOWEL: There are no CT findings of small bowel obstruction. No acute bowel wall inflammation. The appendix is normal. PELVIS: The bladder is normal. The rectum is normal. No pelvic free. No pelvic lymphadenopathy noted. Left ovarian cyst with density of 8.4. The cyst measures 2.2 cm. PERITONEUM/RETROPERITONEUM: No free air or free fluid. Simple 6 mm or less nodules within the left re troperitoneum along the left anterior margin of the aorta image #[id number]. BONES/SOFT TISSUES: No suspicious lytic or blastic osseous lesions. No acute osseous abnormality. IMPRESSION: 1. Redemonstration to the left upper lobe and hilar mass with postobstructive changes. The degree o f postobstructive change has progressed from prior examination. 2. Small left pleural effusion. 3. Progressing right lung nodules suggesting sequela of metastatic disease. 4. Stable indeterminate left adrenal mass 3.2 cm. 5. Right posterior perinephric mass 2.5 x 4.3 cm. 6. Fatty liver. 7. Left ovarian cyst 2.2 cm. 8. 6 mm or less left retroperitoneal nodules. Cannot exclude sequela of metastatic disease. RECOMMENDATIONS: Electronically signed by: Abilio Black MD 06/09/2024 05:29 AM CDT Due to temporary technical issues with the PACS/Skype reporting system, reports are being omar d by the in-house radiologist without review as a courtesy to ensure prompt reporting the interpreting radiologist is fully responsible for the content of the report. Transcribed Date/Time: 06/09/2024 5:33 AM
[2024-06-09] MEDS ORDERED: IPRATROPIUM BROM 0.5MG/2.5ML ONE (06:28)
--- NOTE | 2024-06-09 06:29 | EDPHYS ---
Physician Documentation [facility] Name: Edda Stockton Age: 63 yrs Sex: Female : 1960 Arrival Date: 06/08/2024 Time: 23:51 Bed 5 Private MD: ED Physician Pmua Cheng HPI: 06/09 00:27 This 63 yrs old Female presents to ER via Wheelchair with complaints of sp4 Breathing Difficulty, Pain. 06:18 61-year-old female presents with dyspnea and bilateral breast pain. History of recently sp4 diagnosed left upper lung mass. Patient has not yet followed up with oncologist.. Historical: - Allergies: 00:00 Codeine; ha1 - PMHx: 00:00 Asthma; Bipolar disorder; COPD; Hypertension; LUNG CANCER (June 09, 2024); ha1 - Immunization history:: Adult Immunizations up to date. - Infectious Disease History:: Denies. - Social history:: Smoking status: Patient/guardian denies using tobacco, Stopped _ months ago 1. - Family history:: not pertinent. ROS: 06:18 Constitutional: Negative for fever, chills, and weight loss, positive dyspnea and sp4 bilateral breast pain 06:18 All other systems are negative, Exam: 06:18 Constitutional: This is a well developed, well nourished patient who is awake, alert, sp4 and in no acute distress. Head/Face: Normocephalic, atraumatic. Eyes: Pupils equal round and reactive to light, extra-ocular motions intact. Lids and lashes normal. Conjunctiva and sclera are not injected. Cornea within normal limits. Periorbital areas with no swelling, redness, or edema. ENT: Nares patent. No nasal discharge, no septal abnormalities noted. Tympanic membranes are normal and external auditory canals are clear. Oropharynx with no redness, swelling, or masses, exudates, or evidence of obstruction, uvula midline. Mucous membranes moist. Neck: Trachea midline, no thyromegaly or masses palpated, and no cervical lymphadenopathy. Supple, full range of motion without nuchal rigidity, or vertebral point tenderness. Chest/axilla: Normal chest wall appearance and motion. Nontender with no deformity. No lesions are appreciated. Cardiovascular: Regular rate and rhythm with a normal S1 and S2. No gallops, murmurs, or rubs. Normal PMI, no JVD. No pulse deficits. Respiratory: Lungs have equal breath sounds bilaterally, clear to auscultation and percussion. No rales, rhonchi or wheezes noted. No increased work of breathing, no retractions or nasal flaring. Abdomen/GI: Soft, with normal bowel sounds. No distension or tympany. No guarding or rebound. No evidence of tenderness throughout. Back: No spinal tenderness. No costovertebral tenderness. Skin: Warm, dry with normal turgor. Normal color with no rashes, no lesions, and no evidence of cellulitis. MS/ Extremity: Pulses equal, no cyanosis. Neurovascular intact. Full, normal range of motion. Neuro: Awake and alert, GCS 15, oriented to person, place, time, and situation. Cranial nerves II-XII grossly intact. Motor strength 5/5 in all extremities. Sensory grossly intact. Psych: Awake, alert, with orientation to person, place and time. Behavior, mood, and affect are within normal limits 06:18 ECG was reviewed by the Attending Physician. EKG 0013 sinus tachycardia 102 sp4 Vital Signs: 00:00 BP 149 / 99; Pulse 106; Resp 23 S; Temp 97.8(T); Pulse Ox 95% on R/A; Weight 71.67 kg; ha1 Height 5 ft. 0 in. ; Pain 7/10; 03:09 BP 120 / 87; Pulse 108; Resp 20 S; Pulse Ox 90% on R/A; Pain 0/10; br2 05:12 Pulse 105; Resp 24; Pulse Ox 90% ; Pain 0/10; br2 06:13 BP 119 / 88; Pulse 103; Resp 18 S; Pulse Ox 90% on R/A; br2 00:00 Body Mass Index 30.86 (71.67 kg, 152.4 cm) ha1 00:00 Pain Scale: Adult ha1 03:09 Pain Scale: Adult br2 05:12 Pain Scale: Adult br2 Arnett Coma Score: 06:18 Eye Response: spontaneous(4). Motor Response: obeys commands(6). Verbal Response: sp4 oriented(5). Total: 15. MDM: 00:13 ED course: CHEST: MEDIASTINUM: The heart size is normal. No pericardial effusion. The sp4 aorta demonstrates normal course and caliber. No new mediastinal adenopathy. No axillary adenopathy. There is a small hiatal hernia. LUNGS/PLEURA: There is redemonstration to the previously described left upper lobe and hilar mass occluding the segmental bronchi to the left upper lobe with diffuse postobstructive changes. The degree of postobstructive change has progressed from prior examination with only small portion of aerated lung noted within the upper lobe. The mass invades the mediastinum extending through the region of the AP window and prevascular space. Small left pleural effusion. Interval increase size of scattered right lung nodules suggesting sequela of metastatic disease. SOFT TISSUES/BONES: There are no suspicious-appearing lytic or blastic osseous lesions. No acute osseous abnormality. ABDOMEN/PELVIS: ORGANS: The liver is fatty infiltrated. The gallbladder, spleen, pancreas, and right adrenal gland are normal. The left renal gland demonstrates an indeterminate mass measuring 3.2 cm with density of approximately 35. This is stable from prior exam. The left kidney is normal. The right kidney is anteriorly displaced with a right posterior perinephric mass with multiple smaller satellite nodules. The mass demonstrates a density of 33 and measures approximately 2.5 x 4.3 cm. The mass extends to and abuts the fascia posteriorly. GI/BOWEL: There are no CT findings of small bowel obstruction. No acute bowel wall inflammation. The appendix is normal. PELVIS: The bladder is normal. The rectum is normal. No pelvic free. No pelvic lymphadenopathy noted. Left ovarian cyst with density of 8.4. The cyst measures 2.2 cm. PERITONEUM/RETROPERITONEUM: No free air or free fluid. Simple 6 mm or less nodules within the left retroperitoneum along the left anterior margin of the aorta image #[id number]. [facility] BONES/SOFT TISSUES: No suspicious lytic or blastic osseous lesions. No acute osseous abnormality. IMPRESSION: 1. Redemonstration to the left upper lobe and hilar mass with postobstructive changes. The degree of postobstructive change has progressed from prior examination. 2. Small left pleural effusion. 3. Progressing right lung nodules suggesting sequela of metastatic disease. 4. Stable indeterminate left adrenal mass 3.2 cm. 5. Right posterior perinephric mass 2.5 x 4.3 cm. 6. Fatty liver. 7. Left ovarian cyst 2.2 cm. 8. 6 mm or less left retroperitoneal nodules. Cannot exclude sequela of metastatic disease. . 00:36 Medical Screening Exam initiated sp4 06:26 Differential diagnosis: asthma, Bronchitis CHF exacerbation, Chronic Obstructive sp4 Pulmonary Disease pneumonia, pulmonary edema, Pulmonary Embolism. Antibiotic administration: Levaquin given . Data reviewed: vital signs, nurses notes, lab test result(s), EKG, radiologic studies, plain films. Consideration of Admission/Observation Escalation of care including admission/observation considered. ED course: Patient has signs of moderate to severe metastatic disease based on CT report. Patient states she already has follow-up scheduled with oncologist. Will provide prescription for levofloxacin, albuterol, tramadol as needed pain, Phenergan for nausea, additional ibuprofen for pain. Will advise close follow-up with oncologist. 06/09 00:27 Order name: BMP; Complete Time: 03:40 sp4 06/09 00:27 Order name: Blood Culture Adult (2) sp4 06/09 00:27 Order name: CBC with Diff; Complete Time: 06:08 sp4 06/09 00:27 Order name: CPK; Complete Time: 03:40 sp4 06/09 00:27 Order name: Hepatic Function; Complete Time: 03:40 sp4 06/09 00:27 Order name: Lipase; Complete Time: 03:40 sp4 06/09 00:27 Order name: Magnesium; Complete Time: 03:40 sp4 06/09 00:27 Order name: NT PRO-BNP; Complete Time: 03:40 sp4 06/09 00:27 Order name: PT-INR; Complete Time: 03:40 sp4 06/09 00:27 Order name: Ptt, Activated; Complete Time: 03:40 sp4 06/09 00:27 Order name: Troponin HS; Complete Time: 03:40 sp4 06/09 00:27 Order name: ABG; Complete Time: 03:40 sp4 06/09 04:06 Order name: CBC Smear Scan; Complete Time: 06:08 EDMS 06/09 01:09 Order name: CT Chest Abdomen Pelvis W/O Contrast sp4 06/09 00:27 Order name: Call RT; Complete Time: 01:32 sp4 06/09 00:27 Order name: Cardiac monitoring; Complete Time: 01:32 sp4 06/09 00:27 Order name: EKG - Nurse/Tech; Complete Time: : sp4 06/09 00:27 Order name: IV Saline Lock; Complete Time: : sp4 06/09 00:27 Order name: Labs collected and sent; Complete Time: : sp4 06/09 00:27 Order name: O2 Per Protocol; Complete Time: sp4 06/09 00:27 Order name: O2 Sat Monitoring; Complete Time: sp4 EC:13 Rate is 102 beats/min. Rhythm is regular, Sinus tachycardia. QRS Friona is Normal. NM sp4 interval is normal. QRS interval is normal. QT interval is normal. No Q waves. T waves are Normal. No ST changes noted. Clinical impression: No evidence of ischemia. Interpreted by me. Reviewed by me. Administered Medications: 01:49 Drug: Ondansetron IVP 4 mg IVP once; over 2 minutes Route: IVP; Site: right antecubital;br2 02:30 Follow up: Response: No adverse reaction br2 01:50 Drug: Albuterol Inhalation 2.5 mg Inhalation every 20 minutes x3 Route: Inhalation; br2 01:50 Drug: MethylPrednisoLONE IVP 125 mg IVP once Route: IVP; Site: right antecubital; br2 02:30 Follow up: Response: No adverse reaction br2 01:50 Drug: Rocephin - Rocephin (cefTRIAXone) IVPB 1 grams IVPB once over 30 mins; (mix in 50 br2 mL NS) Route: IVPB; Infused Over: 30 mins; Site: right antecubital; 02:30 Follow up: Response: No adverse reaction; IV Status: Completed infusion; IV Intake: [id number] 01:50 Drug: morphine IVP or IV 6 mg IVP once over 4 mins Route: IVP; Infused Over: 4 mins; br2 Site: right antecubital; 02:30 Follow up: Response: No adverse reaction; Pain is decreased br2 06:34 Drug: Albuterol Inhalation 2.5 mg Inhalation once Route: Inhalation; br2 06:53 Follow up: Response: No adverse reaction br2 06:34 Drug: Ipratropium Inhalation Aerosol 0.5 mg Inhalation once Route: Inhalation; br2 06:54 Follow up: Response: No adverse reaction br2 06:52 Drug: LevOfloxacin PO 750 mg PO once Route: PO; br2 06:54 Follow up: Response: Medication administered at discharge. br2 Disposition Summary: 06/09/24 06:29 Discharge Ordered Notes: Location: Home sp4 Problem: new sp4 Symptoms: have improved sp4 Condition: Stable sp4 Diagnosis - Left upper lung mass, left upper lung postobstructive pneumonia, metastatic lung sp4 cancer, multiple Right pulmonary nodules, right perinephric mass, retroperitoneal metastatic nodules, - Left adrenal mass, COPD with acute exacerbation sp4 Followup: sp4 - With: Negrita Dey MD - When: 2 - 3 days - Reason: Recheck today's complaints Discharge Instructions: - Discharge Summary Sheet sp4 - Lung Cancer sp4 Forms: - Patient Portal Instructions sp4 Prescriptions: - Ventolin HFA 90 mcg/actuation Inhalation HFA Aerosol Inhaler - inhale 2 puff INHALATION route every 4 hours dispense one MDI With Spacer; 1 sp4 unit; Refills: 0, Product Selection Permitted - tramadol 100 mg Oral tablet - take 1 tablet ORAL route every 8 hours PRN pain; 30 tablet; Refills: 0, Product sp4 Selection Permitted - Prednisone 20 mg Oral Tablet - take 2 tablets ORAL route once daily for 5 days; 10 tablet; Refills: 0, Product sp4 Selection Permitted - promethazine 25 mg Oral Tablet - take 1 tablet ORAL route every 6 hours As needed; 20 tablet; Refills: 0, sp4 Product Selection Permitted - levofloxacin 750 mg Oral tablet - take 1 tablet ORAL route once daily; 7 tablet; Refills: 0, Product Selection sp4 Permitted Signatures: Dispatcher [employer] EDOR Deirdre Watkins RN RN ha1 Puma Cheng MD MD sp4 Missy Kaplan RN RN br2 Corrections: (The following items were deleted from the chart) 00:28 00:28 BASIC METABOLIC PANEL+C.LAB.BRZ ordered. EDMS EDMS 00:28 00:28 BLOOD CULTURE*+BA.LAB.BRZ ordered. EDMS EDMS 00:28 00:28 CBC+H.LAB.BRZ ordered. EDMS EDMS 00:28 00:28 CREATINE PHOSPHOKINASE+C.LAB.BRZ ordered. EDMS EDMS 00:28 00:28 HEPATIC FUNCTION+C.LAB.BRZ ordered. EDMS EDMS 00:28 00:28 LIPASE+C.LAB.BRZ ordered. EDMS EDMS 00:28 MAGNESIUM+C.LAB.BRZ ordered. EDMS EDMS 00:28 PROBNP+C.LAB.BRZ ordered. EDMS EDMS 00:28 PROTIME (+INR)+COAG.LAB.BRZ ordered. EDMS EDMS 00: PTT, ACTIVATED+COAG.LAB.BRZ ordered. EDMS EDMS 00:28 Troponin High Sensitivity+C.LAB.BRZ ordered. EDMS EDMS 00:28 Arterial Blood Gas+RC.LAB.BRZ ordered. EDMS EDMS
--- NOTE | 2024-06-09 06:29 | ER ---
Nurse's Notes [facility] Name: Edda Stockton Age: 63 yrs Sex: Female : 1960 Arrival Date: 06/08/2024 Time: 23:51 Bed 5 Private MD: Diagnosis: Left upper lung mass, left upper lung postobstructive pneumonia, metastatic lung cancer, multiple Right pulmonary nodules, right perinephric mass, retroperitoneal metastatic nodules,;Left adrenal mass, COPD with acute exacerbation Presentation: 06/09 00:00 Chief complaint: Patient states: DIFFICULTY BREATHING, PAIN ON THE LEFT BREAST. ha1 00:00 Method Of Arrival: Wheelchair ha1 00:00 Coronavirus screen: Client denies travel out of the [place] in the last 14 days. Ebola ha1 Screen: No symptoms or risks identified at this time. Initial Sepsis Screen: Does the patient meet any 2 criteria? No. Patient's initial sepsis screen is negative. Does the patient have a suspected source of infection? No. Patient's initial sepsis screen is negative. Risk Assessment: Do you want to hurt yourself or someone else? Patient reports no desire to harm self or others. Onset of symptoms was June 09, 2024. 00:00 Acuity: OSCAR 2 ha1 Triage Assessment: 00:00 General: Appears uncomfortable, Behavior is anxious. Pain: Complains of pain in left ha1 breast Pain currently is 7 out of 10 on a pain scale. Quality of pain is described as pressure. Neuro: Level of Consciousness is awake, alert, obeys commands, Oriented to person, place, time, situation. Cardiovascular: Patient's skin is warm and dry. Respiratory: Reports shortness of breath at rest on exertion Airway is patent Respiratory effort is gasping, Respiratory pattern is tachypnea Onset: The symptoms/episode began/occurred gradually, the patient has moderate shortness of breath. GI: No signs and/or symptoms were reported involving the gastrointestinal system. Derm: Skin is normal. Historical: - Allergies: 00:00 Codeine; ha1 - PMHx: 00:00 Asthma; Bipolar disorder; COPD; Hypertension; LUNG CANCER (June 09, 2024); ha1 - Immunization history:: Adult Immunizations up to date. - Infectious Disease History:: Denies. - Social history:: Smoking status: Patient/guardian denies using tobacco, Stopped _ months ago 1. - Family history:: not pertinent. Screenin:10 [facility] ED Fall Risk Assessment (Adult) History of falling in the last 3 months, br2 including since admission No falls in past 3 months (0 pts) Confusion or Disorientation No (0 pts) Intoxicated or Sedated No (0 pts) Impaired Gait No (0 pts) Mobility Assist Device Used No (0 pt) Altered Elimination No (0 pt) Score/Fall Risk Level 0 - 2 = Low Risk Oriented to surroundings. Abuse screen: Denies threats or abuse. Denies injuries from another. Nutritional screening: No deficits noted. Tuberculosis screening: No symptoms or risk factors identified. Assessment: 00:10 Reassessment: Patient and/or family updated on plan of care and expected duration. Pain br2 level reassessed. Patient is alert, oriented x 3, equal unlabored respirations, skin warm/dry/pink. General: Appears uncomfortable, Behavior is calm, cooperative. Pain: Complains of pain in anterior aspect of left upper chest and left breast Pain currently is 5 out of 10 on a pain scale. Respiratory: Reports shortness of breath at rest on exertion Airway is patent Respiratory effort is even, unlabored, Respiratory pattern is regular, symmetrical, Breath sounds are diminished Breath sounds with wheezes bilaterally. GI: No signs and/or symptoms were reported involving the gastrointestinal system. : No signs and/or symptoms were reported regarding the genitourinary system. EENT: No signs and/or symptoms were reported regarding the EENT system. Derm: No signs and/or symptoms reported regarding the dermatologic system. Musculoskeletal: Circulation, motion, and sensation intact. Capillary refill < 3 seconds, Range of motion: intact in all extremities. 03:38 Reassessment: Patient is alert, oriented x 3, equal unlabored respirations, skin br2 warm/dry/pink. Patient states feeling better. Patient states symptoms have improved. 06:54 Reassessment: Patient and/or family updated on plan of care and expected duration. Pain br2 level reassessed. Patient is alert, oriented x 3, equal unlabored respirations, skin warm/dry/pink. Patient states feeling better. Patient states symptoms have improved. Vital Signs: 00:00 BP 149 / 99; Pulse 106; Resp 23 S; Temp 97.8(T); Pulse Ox 95% on R/A; Weight 71.67 kg; ha1 Height 5 ft. 0 in. ; Pain 7/10; 03:09 BP 120 / 87; Pulse 108; Resp 20 S; Pulse Ox 90% on R/A; Pain 0/10; br2 05:12 Pulse 105; Resp 24; Pulse Ox 90% ; Pain 0/10; br2 06:13 BP 119 / 88; Pulse 103; Resp 18 S; Pulse Ox 90% on R/A; br2 00:00 Body Mass Index 30.86 (71.67 kg, 152.4 cm) ha1 00:00 Pain Scale: Adult ha1 03:09 Pain Scale: Adult br2 05:12 Pain Scale: Adult br2 Spencer Coma Score: 06:18 Eye Response: spontaneous(4). Motor Response: obeys commands(6). Verbal Response: sp4 oriented(5). Total: 15. ED Course: 06/08 23:56 Patient arrived in ED. gm2 06/09 00:10 Patient has correct armband on for positive identification. Placed in gown. Bed in low br2 position. Call light in reach. Side rails up X 1. Provided Education on: PLAN OF CARE. 00:18 Triage completed. ha1 00:23 Inserted saline lock: 22 gauge in left forearm, using aseptic technique. Blood br2 collected. Flushed with 10 mL NS. 00:26 Puma Cheng MD is Attending Physician. sp4 00:42 First set of blood cultures drawn by me. oe 00:58 Second set of blood cultures drawn by me. oe 01:01 Inserted saline lock: 22 gauge in right forearm, using aseptic technique. Blood oe collected. Flushed with 10 mL NS. 01:04 Blood Culture Adult (2) Sent. oe 01:31 Missy Kaplan, SHEN is Primary Nurse. br2 02:13 CT Chest Abdomen Pelvis W/O Contrast In Process Unspecified. EDMS 05:14 Warm blanket given. br2 06:27 Negrita Dey MD is Referral Physician. sp4 06:54 IV discontinued, intact, bleeding controlled, No redness/swelling at site. Pressure br2 dressing applied. 06:54 No provider procedures requiring assistance completed. br2 Administered Medications: 01:49 Drug: Ondansetron IVP 4 mg IVP once; over 2 minutes Route: IVP; Site: right antecubital;br2 02:30 Follow up: Response: No adverse reaction br2 01:50 Drug: Albuterol Inhalation 2.5 mg Inhalation every 20 minutes x3 Route: Inhalation; br2 01:50 Drug: MethylPrednisoLONE IVP 125 mg IVP once Route: IVP; Site: right antecubital; br2 02:30 Follow up: Response: No adverse reaction br2 01:50 Drug: Rocephin - Rocephin (cefTRIAXone) IVPB 1 grams IVPB once over 30 mins; (mix in 50 br2 mL NS) Route: IVPB; Infused Over: 30 mins; Site: right antecubital; 02:30 Follow up: Response: No adverse reaction; IV Status: Completed infusion; IV Intake: [id number] 01:50 Drug: morphine IVP or IV 6 mg IVP once over 4 mins Route: IVP; Infused Over: 4 mins; br2 Site: right antecubital; 02:30 Follow up: Response: No adverse reaction; Pain is decreased br2 06:34 Drug: Albuterol Inhalation 2.5 mg Inhalation once Route: Inhalation; br2 06:53 Follow up: Response: No adverse reaction br2 06:34 Drug: Ipratropium Inhalation Aerosol 0.5 mg Inhalation once Route: Inhalation; br2 06:54 Follow up: Response: No adverse reaction br2 06:52 Drug: LevOfloxacin PO 750 mg PO once Route: PO; br2 06:54 Follow up: Response: Medication administered at discharge. br2 Intake: 02:30 IV: 50ml; Total: 50ml. br2 Outcome: 06:29 Discharge ordered by . sp4 06:54 Discharged to home ambulatory, br2 06:54 Condition: good 06:54 Discharge instructions given to patient, Instructed on discharge instructions, follow up and referral plans. Demonstrated understanding of instructions, follow-up care, medications, Prescriptions given X 5 06:57 Patient left the ED. br2 Signatures: Dispatcher [employer] EDMS Raleigh Thomson Heidy, RN RN ha1 Puma Cheng MD MD sp4 Amy Chang gm2 Missy Kaplan RN RN br2
[2024-06-09] MEDS ORDERED: levoFLOXacin 750 MG TAB ONE (06:51)
[2024-06-09 07:24] VITALS: TEMP 97.8
[2024-06-09 07:25] VITALS: O2SAT 90
[2024-06-09 07:27] VITALS: BP 119/88
--- NOTE | 2024-06-12 12:11 | EKG ---
Test Date: 2024-06-09 Test Time: 00:13:21 Rag Boiler: AF MEASUREMENT RESULTS: Intervals: Rate: 102 AL: 124 QRSD: 66 QT: 346 QTc: 450 [place]: P: 74 AL: 124 QRS: 87 T: 68 INTERPRETIVE STATEMENTS: Sinus tachycardia Otherwise normal ECG Compared to ECG 05/09/2024 14:03:29 No significant changes Electronically Signed On 06-12-24 12:03:13 CDT by Giovanni Mccoy
== END 2024-06-09 06:57 | disposition home or self-care (01) ==
LOC: ER 23:51
DX: J44.1 Chronic obstructive pulmonary disease with (acute) exacerbation (principal); J18.8 Other pneumonia, unspecified organism; C78.01 Secondary malignant neoplasm of right lung; R91.8 Other nonspecific abnormal finding of lung field; N28.89 Other specified disorders of kidney and ureter; E27.9 Disorder of adrenal gland, unspecified; C34.90 Malignant neoplasm of unspecified part of unspecified bronchus or lung; I10 Essential (primary) hypertension
CPT/HCPCS: 96365; 93005; 87040 ×2; 85025; 80048; 36415; 83735; 82550; 85610; 80076; 85730; 84484; 83690; 83880; 71250; 74176; 82805; 96375; 99285; J7613 ×2; J7644; J2270; J2919; J2405; J0696

== ENCOUNTER 2024-06-19 09:26 | Emergency (ER) | payer MEDICAID ==
--- OUTSIDE RECORDS SUMMARY | 2024-06-19 09:34 | XMS REPORT | Continuity of Care Document ---
Author Name Unknown Address [address] [facility] [address] [place] [address] [facility] [place] Address [address] [facility] [place] [address] Care Team Providers Care Compensation Vice President Name Role Phone Rolly CARTER, Aftab Srinivasan Primary Care Physician Awilda Alatorre Attending Clinician Unavailable Lucy Escobedo Attending Clinician Unavailable Payers Payer Name Policy Type Policy Number Effective Date Expirati on Date Source [facility] 53 [id number] 2019 00:00:00 [facility] Problems Condition Name Condition Details Condition Category Status Onset Date Resolution Date Last Treatment Date Treating Clinician Comments Source [id number] Primary insomnia Problem [facility] Current smoker Current smoker Problem [facility] [id number] Depression with anxiety Problem [facility] [id number] Abnormal renal function test Problem [facility] [id number] Asthma, unspecifie d asthma severity, unspecifie d whether complicate d, unspecifie d whether persistent Problem [facility] [id number] Restless legs syndrome Problem [facility] [id number] Essential hypertensi on Problem [facility] [id number] Overweight (BMI 25.0-29.9) Problem [facility] Bipolar disorder Bipolar disorder Problem [facility] [id number] Prediabete s Problem [facility] [id number] Electrolyt e abnormalit y Problem [facility] [id number] Abnormal CBC Problem [facility] [id number] Acquired hypothyroi dism Problem [facility] [id number] Tobacco use Problem [facility] 247577513 COPD exacerbati on Problem [facility] Allergies, Adverse Reactions, Alerts Allergy Name Allergy Type Status Severity Reaction(s) Onset Date Inactive Date Treating Clinician Comments Source codeine Propensi ty to adverse reaction to drug Active 05-30 00:00: 00 Rigo Bo codeine codeine Active Unknown [facility] Social History Social Habit Start Date Stop Date Quantity Comments Source History of Tobacco Use Current Smoker [facility] Sex Assigned At [facility] Smoking Status Start Date Stop Date Source Current Smoker 2024-05-17 00:00:00 [facility] Never Smoker [facility] Medications Ordered Medication Name Filled Medication Name Start Date Stop Date Current Medication? Ordering Clinician Indication Dosage Frequency Signature (SIG) Comments Components Source tramadol 50 mg tablet 06-02 00:00: 00 Yes 1mg [facility]igo Bo buspirone 10 mg tablet 05-30 00:00: 00 Yes mg [facility]igo Bo Trelegy Ellipta 100 mcg-62.5 mcg-25 mcg powder for inhalation 05-30 00:00: 00 Yes 1mcg [facility] prednisone 10 mg tablets in a dose pack 05-30 00:00: 00 Yes 1mg Rigo Bo Atrovent Atrovent 2-24 00:00: 00 No Atrovent Dulera 200-5 MCG/ACT Dulera 200-5 MCG/ACT 2-24 00:00: 00 No Dulera 200-5 MCG/ACT ipratropium bromide 0.02 % solution for inhalation 05-13 00:00: 00 Yes % [facility]igo Bo Dulera 200 mcg-5 mcg/actuati on HFA [...] - single dose syringe 2019-01-13 14:55:00 Completed [facility] Flucelvax - single dose syringe Flucelvax - single dose syringe 2019-01-13 14:55:00 Completed [facility] Flucelvax - single dose syringe Flucelvax - single dose syringe 2019-01-13 14:55:00 Completed [facility] Flucelvax - single dose syringe Flucelvax - single dose syringe 2019-01-13 14:55:00 Completed [facility] Flucelvax - single dose syringe Flucelvax - single dose syringe 2019-01-13 14:55:00 Completed [facility] Flucelvax - single dose syringe Flucelvax - single dose syringe 2019-01-13 14:55:00 Completed [facility] Flucelvax - single dose syringe Flucelvax - single dose syringe 2019-01-13 00:00:00 Completed [facility] Flucelvax - single dose syringe Flucelvax - single dose syringe Unknown Completed [facility] Flucelvax - single dose syringe Flucelvax - single dose syringe Unknown Completed [facility] Flucelvax - single dose syringe Flucelvax - single dose syringe Unknown Completed [facility] Flucelvax - single dose syringe Flucelvax - single dose syringe Unknown Completed [facility] Flucelvax (ccIIV4) - SDS - 0.5mL Flucelvax (ccIIV4) - SDS - 0.5mL Unknown Completed [facility] Flucelvax (ccIIV4) - SDS - 0.5mL Flucelvax (ccIIV4) - SDS - 0.5mL Unknown Completed [facility] Flucelvax (ccIIV4) - SDS - 0.5mL Flucelvax (ccIIV4) - SDS - 0.5mL Unknown Completed [facility] Flucelvax (ccIIV4) - SDS - 0.5mL Flucelvax (ccIIV4) - SDS - 0.5mL Unknown Completed [facility] Flucelvax (ccIIV4) - SDS - 0.5mL Flucelvax (ccIIV4) - SDS - 0.5mL Unknown Completed [facility] Flucelvax (ccIIV4) - SDS - 0.5mL Flucelvax (ccIIV4) - SDS - 0.5mL Unknown Completed [facility] Flucelvax (ccIIV4) - SDS - 0.5mL Flucelvax (ccIIV4) - SDS - 0.5mL Unknown Completed [facility] Flucelvax (ccIIV4) - SDS - 0.5mL Flucelvax (ccIIV4) - SDS - 0.5mL Unknown Completed [facility] Flucelvax (ccIIV4) - SDS - 0.5mL Flucelvax (ccIIV4) - SDS - 0.5mL Unknown Completed [facility] Flucelvax (ccIIV4) - SDS - 0.5mL Flucelvax (ccIIV4) - SDS - 0.5mL Unknown Completed [facility] Fluarix (IIV3) - SDS - 0.5mL Fluarix (IIV3) - SDS - 0.5mL Unknown Completed [facility] Vital Signs Vital Name Observation Time Observation Value Comments S ource height 2024-05-17 09:00:00 62.00 [in_i] Com [facility] weight 2024-05-17 09:00:00 158.2 [lb_av] Co mmon [facility] temperature 2024-05-17 09:00:00 98.6 [degF] Com [facility] bmi 2024-05-17 09:00:00 28.93 kg/m2 Comm on [facility] oximetry 2024-05-17 09:00:00 94 % Commo n [facility] respiratory rate 2024-05-17 09:00:00 16 /min Common [facility] blood pressure systolic 2024-05-17 09:00:00 132 mm[Hg] [facility] blood pressure diastolic 2024-05-17 09:00:00 88 mm[Hg] [facility] height 2024-03-07 10:00:00 62.00 [in_i] Com [facility] weight 2024-03-07 10:00:00 169.4 [facility] 2024-[facility]-07 10:00:00 97.4 [degF] Com [facility] bmi 2024-03-07 10:00:00 30.98 kg/m2 Comm on [facility] oximetry 2024-03-07 10:00:00 95 % Com[facility] respiratory rate 2024-03-07 10:00:00 16 /min [facility] blood pressure systolic 2024-03-07 10:00:00 135 mm[Hg] [facility] blood pressure diastolic 2024-03-07 10:00:00 76 mm[Hg] [facility] height 2023-12-07 08:20:00 62.00 [in_i] Com [facility] weight 2023-12-07 08:20:00 175.4 [lb_av] [facility] 2023-12-07 08:20:00 97.8 [degF] Com [facility] bmi 2023-12-07 08:20:00 32.08 kg/m2 Comm on [facility] oximetry 2023-12-07 08:20:00 96 % Commo [facility] respiratory rate 2023-12-07 08:20:00 16 /min Common [facility] blood pressure systolic 2023-12-07 08:20:00 120 mm[Hg] [facility] blood pressure diastolic 2023-12-07 08:20:00 82 mm[Hg] [facility] height 2023-12-07 08:20:00 62.00 [in_i] Com [facility] weight 2023-12-07 08:20:00 175.4 [lb_av] Co mmon [facility] temperature 2023-12-07 08:20:00 97.8 [degF] Com [facility] bmi 2023-12-07 08:20:00 32.08 kg/m2 Comm on [facility] oximetry 2023-12-07 08:20:00 96 % Commo n [facility] respiratory rate 2023-12-07 08:20:00 16 /min Common [facility] blood pressure systolic 2023-12-07 08:20:00 120 mm[Hg] Common [facility] blood pressure diastolic 2023-12-07 08:20:00 82 mm[Hg] Common [facility] height 2023-09-06 08:20:00 62.00 [in_i] Com [facility] weight 2023-09-06 08:20:00 173.8 [lb_av] Co mmon [facility] temperature 2023-09-06 08:20:00 97.3 [degF] Com [facility] bmi 2023-09-06 08:20:00 31.78 kg/m2 Comm on [facility] oximetry 2023-09-06 08:20:00 90 % Commo n [facility] respiratory rate 2023-09-06 08:20:00 16 /min Common [facility] blood pressure systolic 2023-09-06 08:20:00 132 mm[Hg] Common [facility] blood pressure diastolic 2023-09-06 08:20:00 79 mm[Hg] [facility] height 2023-03-17 14:20:00 62.00 [in_i] Com [facility] weight 2023-03-17 14:20:00 170.0 [lb_av] Co mmon [facility] temperature 2023-03-17 14:20:00 98.2 [degF] Com [facility] bmi 2023-03-17 14:20:00 31.09 kg/m2 Comm on [facility] oximetry 2023-03-17 14:20:00 95 % Commo [facility] respiratory rate 2023-03-17 14:20:00 15 /min [facility] blood pressure systolic 2023-03-17 14:20:00 106 mm[Hg] [facility] blood pressure diastolic 2023-03-17 14:20:00 71 mm[Hg] Common [facility] height 2023-02-03 13:00:00 62.00 [in_i] Com [facility] weight 2023-02-03 13:00:00 168.2 [lb_av] Co mmon [facility] temperature 2023-02-03 13:00:00 97.9 [degF] Com [facility] bmi 2023-02-03 13:00:00 30.76 kg/m2 Comm on [facility] oximetry 2023-02-03 13:00:00 92 % Commo [facility] respiratory rate 2023-02-03 13:00:00 18 /min [facility] blood pressure systolic 2023-02-03 13:00:00 135 mm[Hg] [facility] blood pressure diastolic 2023-02-03 13:00:00 85 mm[Hg] Common [facility] height 2022-11-03 13:40:00 62.00 [in_i] Com [facility] weight 2022-11-03 13:40:00 171.2 [lb_av] Co mmon [facility] temperature 2022-11-03 13:40:00 98.0 [degF] Com [facility] bmi 2022-11-03 13:40:00 31.31 kg/m2 Comm on [facility] oximetry 2022-11-03 13:40:00 94 % Commo [facility] respiratory rate 2022-11-03 13:40:00 16 /min Common [facility] blood pressure systolic 2022-11-03 13:40:00 116 mm[Hg] Common [facility] blood pressure diastolic 2022-11-03 13:40:00 79 mm[Hg] Common [facility] height 2022-05-04 10:40:00 62.00 [in_i] Com [facility] weight 2022-05-04 10:40:00 172.6 [lb_av] Co [facility] temperature 2022-05-04 10:40:00 97.4 [degF] Com [facility] bmi 2022-05-04 10:40:00 31.57 kg/m2 Comm on [facility] oximetry 2022-05-04 10:40:00 96 % Commo n [facility] respiratory rate 2022-05-04 10:40:00 16 /min Common [facility] blood pressure systolic 2022-05-04 10:40:00 128 mm[Hg] [facility] blood pressure diastolic 2022-05-04 10:40:00 72 mm[Hg] [facility] height 2022-01-29 11:40:00 62.00 [in_i] Com [facility] weight 2022-01-29 11:40:00 168.2 [lb_av] Co mmon [facility] temperature 2022-01-29 11:40:00 97.6 [degF] Com [facility] bmi 2022-01-29 11:40:00 30.76 kg/m2 Comm on [facility] oximetry 2022-01-29 11:40:00 95 % Commo [facility] respiratory rate 2022-01-29 11:40:00 17 /min Common [facility] blood pressure systolic 2022-01-29 11:40:00 124 mm[Hg] [facility] blood pressure diastolic 2022-01-29 11:40:00 76 mm[Hg] Common [facility] height 2021-10-21 10:00:00 62.00 [in_i] Com [facility] weight 2021-10-21 10:00:00 159.4 [lb_av] Co mmon [facility] temperature 2021-10-21 10:00:00 97.0 [degF] Com [facility] bmi 2021-10-21 10:00:00 29.15 kg/m2 Comm on [facility] oximetry 2021-10-21 10:00:00 94 % Commo n [facility] respiratory rate 2021-10-21 10:00:00 18 /min Common [facility] blood pressure systolic 2021-10-21 10:00:00 116 mm[Hg] Common [facility] blood pressure diastolic 2021-10-21 10:00:00 71 mm[Hg] Common [facility] height 2021-07-15 14:20:00 62.00 [in_i] Com [facility] weight 2021-07-15 14:20:00 160 [lb_av] Comm on [facility] bmi 2021-07-15 14:20:00 29.26 kg/m2 Comm on [facility] height 2021-04-16 10:40:00 62.00 [in_i] Com [facility] weight 2021-04-16 10:40:00 160 [lb_av] Comm on [facility] bmi 2021-04-16 10:40:00 29.26 kg/m2 Comm on [facility] height 2021-03-26 10:20:00 62.00 [in_i] Com [facility] weight 2021-03-26 10:20:00 160 [lb_av] Comm on [facility] bmi 2021-03-26 10:20:00 29.26 kg/m2 Comm on [facility] height 2021-03-06 08:00:00 62.00 [in_i] Com [facility] weight 2021-03-06 08:00:00 160 [lb_av] Comm on [facility] 2021-03-06 08:00:00 29.26 kg/m2 Comm on [facility] height 2021-02-18 13:00:00 62.00 [in_i] Com [facility] weight 2021-02-18 13:00:00 160 [lb_av] Comm on [facility] bmi 2021-02-18 13:00:00 29.26 kg/m2 Comm on [facility] blood pressure diastolic 2021-01-20 10:40:00 84 mm[Hg] Common [facility] height 2021-01-20 10:40:00 62.00 [in_i] Com [facility] weight 2021-01-20 10:40:00 159 [lb_av] Comm on [facility] temperature 2021-01-20 10:40:00 97.7 [degF] Com [facility] bmi 2021-01-20 10:40:00 29.08 kg/m2 Comm on [facility] oximetry 2021-01-20 10:40:00 95 % Commo n [facility] respiratory rate 2021-01-20 10:40:00 18 /min [facility] blood pressure systolic 2021-01-20 10:40:00 132 mm[Hg] [facility] height 2020-12-23 10:20:00 62.00 [in_i] Com mon [facility] weight 2020-12-23 10:20:00 158.4 [lb_av] Co mmon [facility] temperature 2020-12-23 10:20:00 97.0 [degF] Com [facility] bmi 2020-12-23 10:20:00 28.97 kg/m2 Comm on [facility] oximetry 2020-12-23 10:20:00 96 % Commo n [facility] respiratory rate 2020-12-23 10:20:00 20 /min [facility] Body Temperature 2024-06-02 13:47:00 98.40 degrees Rigo F Anupam Heart Rate 2024-06-02 13:47:00 72.00 /min Radha en F Anupam Respiratory Rate 2024-06-02 13:47:00 16.00 /min Rigo F Anupam BP Systolic 2024-06-02 13:47:00 113 mm[Hg] Step hen F Anupam BP Diastolic 2024-06-02 13:47:00 59 mm[Hg] Adam phen F Anupam Weight Measured 2024-06-02 13:47:00 157.60 pounds Irgo F Anupam Height Measured 2024-06-02 13:47:00 63.00 [...] End Date/Time Encounter Type Admission Type Attending [facility] Care Department Encounter ID Source 2023-09-06 08:16:00 Outpatient Awilda Alatorre [facility] [id number] [facility] 2023-02-02 15:57:00 Outpatient Awilda Alatorre [facility] [id number] [facility] 2022-05-25 08:58:00 Outpatient Awilda Alatorre [facility] [id number] [facility] 2022-04-29 13:40:00 Outpatient Awilda Alatorre [facility] [id number] [facility] 2022-01-28 07:34:00 Outpatient Awilda Alatorre [facility] ST[facility] [id number] [facility] 2022-01-21 15:46:00 Outpatient Awilda Alatorre [facility] ST[facility] [id number] [facility] 2022-01-20 07:51:00 Outpatient Awilda Alatorre [facility] ST[facility] [id number] [facility] 2021-10-21 09:54:00 Outpatient Awilda Alatorre [facility] [id number] [facility] 2021-04-16 14:39:14 Outpatient CameronMohinder aguilara STLMLC ST[facility] [id number] [facility] 2021-04-16 14:31:06 Outpatient CameronAwilda aguilar STLMLC ST[facility] [id number] [facility] 2021-04-16 14:25:23 Outpatient Awilda Alatorre [facility] [id number] [facility] 2021-04-16 14:12:59 Outpatient Awilda Alatorre [facility] [id number] [facility] 2021-04-16 12:20:08 Outpatient Awilda Alatorre [facility] [id number] [facility] 2021-04-16 12:16:05 Outpatient Awilda Alatorre [facility] ST[facility] [id number] [facility] 2021-04-16 12:15:10 Outpatient [facility] [id number] [facility] 2021-04-16 11:40:31 Outpatient Lucy Escobedo STLMLC ST[facility] [id number] [facility] 2024-06-02 13:29:21 2024-06-02 13:29:21 Outpatient [facility] [id number] [facility] 2024-06-02 00:00:00 2024-06-02 00:00:00 Outpatient Visit [facility] [id number] [facility] 2024-05-30 15:07:47 2024-05-30 15:07:47 Outpatient [facility] [id number] [facility] 2024-05-30 00:00:00 2024-05-30 00:00:00 Outpatient Visit [facility] [id number] [facility] 2024-05-24 00:00:00 2024-05-24 00:00:00 (TEL) [facility]LMLC [facility] [id number] [facility] 2024-05-17 00:00:00 2024-05-17 00:00:00 (HOSP F/U) Hospital Follow Up [facility]LMLC ST[facility] [id number] [facility] 2024-05-15 00:00:00 2024-05-15 00:00:00 (TEL) STLMLC ST[facility] [id number] [facility] 2024-05-08 00:00:00 2024-05-08 00:00:00 (TEL) STLMLC [facility] [id number] [facility] 2024-05-01 00:00:00 2024-05-01 00:00:00 (TEL) STLMLC [facility] [id number] [facility] 2024-03-07 00:00:00 2024-03-07 00:00:00 OFFICE VISIT ESTAB PT LEVEL 4 [facility]MLC STL[facility] [id number] [facility] 2023-12-07 00:00:00 2023-12-07 00:00:00 OFFICE VISIT ESTAB PT LEVEL 4 [facility] [id number] [facility] 2023-09-20 00:00:00 2023-09-20 00:00:00 (TEL) STLMLC [facility] [id number] [facility] 2023-09-09 00:00:00 2023-09-09 00:00:00 (TEL) STLMLC [facility] [id number] [facility] 2023-09-06 00:00:00 2023-09-06 00:00:00 OFFICE VISIT ESTAB PT LEVEL 4 [facility]C [facility] [id number] [facility] 2023-08-04 00:00:00 2023-08-04 00:00:00 (TEL) STLMLC STL[facility]C [id number] [facility] 2023-06-17 00:00:00 2023-06-17 00:00:00 (TEL) STLMLC ST[facility] [id number] [facility] 2023-03-18 00:00:00 2023-03-18 00:00:00 (TEL) STLMLC [facility] [id number] [facility] 2023-03-17 00:00:00 2023-03-17 00:00:00 OFFICE VISIT ESTAB PT LEVEL 4 [facility] [id number] [facility] 2023-02-04 00:00:00 2023-02-04 00:00:00 (TEL) STLMLC [facility] [id number] [facility] 2023-02-03 00:00:00 2023-02-03 00:00:00 OFFICE VISIT ESTAB PT LEVEL 3 [facility] [id number] [facility] 2022-12-28 00:00:00 2022-12-28 00:00:00 (TEL) STLMLC STL[facility]C [id number] [facility] 2022-11-03 00:00:00 2022-11-03 00:00:00 OFFICE VISIT ESTAB PT LEVEL 3 [facility]C ST[facility] [id number] [facility] 2022-10-20 00:00:00 2022-10-20 00:00:00 (TEL) STLMLC STL[facility]C [id number] [facility] 2022-08-04 00:00:00 2022-08-04 00:00:00 (TEL) STLMLC STLMLC [id number] [facility] 2022-06-02 00:00:00 2022-06-02 00:00:00 (TEL) STLMLC ST[facility] [id number] [facility] 2022-05-27 00:00:00 2022-05-27 00:00:00 (TEL) STLMLC [facility] [id number] [facility] 2022-05-04 00:00:00 2022-05-04 00:00:00 OFFICE VISIT ESTAB PT LEVEL 4 [facility]C ST[facility] [id number] [facility] 2022-02-17 00:00:00 2022-02-17 00:00:00 (TEL) STLMLC [facility] [id number] [facility] 2022-01-29 00:00:00 2022-01-29 00:00:00 OFFICE VISIT EST PT LEVEL 3 [facility] [id number] [facility] 2021-10-21 00:00:00 2021-10-21 00:00:00 OFFICE VISIT EST PT LEVEL 3 [facility] [id number] [facility] 2021-10-14 00:00:00 2021-10-14 00:00:00 (TEL) STLMLC STL[facility]C [id number] [facility] 2021-07-15 00:00:00 2021-07-15 00:00:00 OFFICE VISIT EST PT LEVEL 3 [facility] [id number] [facility] 2021-06-13 00:00:00 2021-06-13 00:00:00 (TEL) STLMLC ST[facility]C [id number] [facility] 2021-04-16 00:00:00 2021-04-16 00:00:00 OFFICE VISIT EST PT LEVEL 3 [facility] [id number] [facility] 2021-04-16 00:00:00 2021-04-16 00:00:00 (TEL) STLMLC ST[facility]C [id number] [facility] 2021-04-14 00:00:00 2021-04-14 00:00:00 (TEL) STLMLC STL[facility]C [id number] [facility] 2021-03-26 00:00:00 2021-03-26 00:00:00 OL DIG E/M SVC 11-20 MIN STLMLC STLMLC [id number] [facility] 2021-03-19 00:00:00 2021-03-19 00:00:00 (TEL) STLMLC STLMLC [id number] [facility] 2021-03-06 00:00:00 2021-03-06 00:00:00 OFFICE VISIT EST PT LEVEL 3 [facility] [id number] [facility] 2021-02-25 00:00:00 2021-02-25 00:00:00 (TEL) STLMLC STL[facility]C [id number] [facility] 2021-02-18 00:00:00 2021-02-18 00:00:00 OFFICE VISIT EST PT LEVEL 3 [facility]C [facility] [id number] [facility] 2021-01-20 00:00:00 2021-01-20 00:00:00 OFFICE VISIT EST PT LEVEL 3 [facility] [id number] [facility] 2020-12-23 00:00:00 2020-12-23 00:00:00 OFFICE VISIT ESTAB PT LEVEL 4 [facility] [id number] [facility] 2020-10-07 00:00:00 2020-10-07 00:00:00 Outpatient [facility] [id number] [facility] 2020-10-02 00:00:00 2020-10-02 00:00:00 Outpatient [facility] [id number] [facility] 2020-09-13 00:00:00 2020-09-13 00:00:00 Outpatient [facility] [id number] [facility] 2020-08-16 00:00:00 2020-08-16 00:00:00 Outpatient [facility] [id number] [facility] 2020-06-27 00:00:00 2020-06-27 00:00:00 Outpatient [facility] [id number] [facility] 2020-06-20 00:00:00 2020-06-20 00:00:00 Outpatient [facility] [id number] [facility] 2020-04-04 00:00:00 2020-04-04 00:00:00 Outpatient [facility] [id number] [facility] 2020-03-08 00:00:00 2020-03-08 00:00:00 Outpatient [facility]C [facility] [id number] [facility] 2020-03-06 00:00:00 2020-03-06 00:00:00 Outpatient [facility] [id number] [facility] 2019-11-14 15:20:00 2019-11-14 15:20:[address] [facility] [id number] [facility] 2019-10-05 11:34:00 2019-10-05 11:34:[address] [facility] [id number] [facility] 2019-10-05 10:45:00 2019-10-05 10:45:[address] [facility] [address] [id number] [facility] 2019-02-06 21:16:00 2019-02-06 21:16:00 [facility] [id number] [facility] 2019-02-02 13:53:00 2019-02-02 13:53:[address] [facility] [address] [facility] [id number] [facility] 2019-01-26 08:40:00 2019-01-26 08:40:00 [facility] [address] [facility] [id number] [facility] 2019-01-16 08:36:00 2019-01-16 08:36:00 [facility] [id number] [facility] 2019-01-13 11:00:00 2019-01-13 11:00:[address] [facility] [facility] [id number] [facility] 2018-12-22 14:47:00 2018-12-22 14:47:[address] [facility] [address] [facility] [id number] [facility] 2018 15:47:00 2018 15:47:[address] [facility] [address] [id number] [facility] 2018 13:00:00 2018 13:00:00 [facility] [id number] [facility] Results Test Description Test Time Test Comments Results Result Co mments Source CULTURE, [id number] 00:00:00* Test Item Value Reference Range Interpretation Comme nts CULTURE, URINE (test code = 630-4) SPECIMEN NUMBER: [id number] 3D SCR MARQUITA BILAT W/CAD3D SCR MARQUITA BILAT W/CAD Notes Date/Time Note [facility]2025-[facility]11 00:00:00 [facility]
[2024-06-19] MEDS ORDERED: NA CHLORIDE 0.9% 2,000 ML ONE (09:43)
[2024-06-19 09:50] LABS: Absolute Basophils 0.1 K/uL (0-0.5); Absolute Eosinophils 0.5 K/uL (0-0.5); Absolute Lymphocytes (CBC) 2.8 K/uL (0.7-4.9); Absolute Monocytes 1.2 K/uL (0.1-1.3); Absolute Neutrophil 6.6 K/uL (1.8-8.0); Eosinophils % 4.5 % (0-4.4); Hematocrit 43.9 % (36.0-45.0); Hemoglobin 14.1 g/dL (12.0-15.0); Lymphocytes % 24.8 % (15.3-44.8); MCH 30.1 pg (27.0-35.0); MCHC 32.1 g/dL (32.0-36.0); MCV 93.5 fL (80-100); MPV 9.5 fL (7.6-11.3); Monocytes % 10.8 % (3.3-12.3); Neutrophils % 58.9 % (41.7-73.7); Platelets 346 thou/uL (152-406); Red Cell Distribution Width 15.1 % (12.1-15.2)
[2024-06-19 09:55] LABS: PT Prothrombin Time 13.1 SECONDS (10-13.0); Protime INR 1.16
[2024-06-19] MEDS ORDERED: CEFTRIAXONE 1000 MG/VIAL ONE (10:05)
[2024-06-19 10:07] LABS: Albumin 2.7 g/dL (3.4-5.0); Albumin/Globulin Ratio 0.8 (1.1-1.8); Anion Gap 7.7 mEq/L (5.0-15.0); Bilirubin Direct 0.3 mg/dL (0-0.2); Bilirubin Indirect, Calculated 0.5 mg/dL (0.2-0.8); Bilirubin Total 0.8 mg/dL (0.2-1.0); Globulin 3.4 g/dL (2.3-3.5); Magnesium 2.2 mg/dL (1.6-2.4); Potassium 3.7 mEq/L (3.5-5.1); Protein, Total 6.1 g/dL (6.4-8.2); Troponin High Sensitivity 6.3 pg/mL (<58.9)
--- NOTE | 2024-06-19 10:21 | RAD REPORT ---
EXAMINATION: CT HEAD WITHOUT CONTRAST CT CERVICAL SPINE WITHOUT CONTRAST CLINICAL INDICATION: Alteration of consciousness. Neck pain. Confusion. TECHNIQUE: Axial CT images from the skull base to the vertex without intravenous contrast. Axial CT i mages through the cervical spine were obtained without intravenous contrast. Sagittal and coronal reformatted images were created from the data set. Coronal and sagittal reformatted images were creat ed from the data set. One or more of the following dose reduction techniques were used: Automated exposure control, adjustment of the mA and/or kV according to patient size, and/or iterative reconstr uction. Unless otherwise specified, incidental findings do not require dedicated imaging follow-up. [id number]. Comparison: 2012 FINDINGS: An intracranial bleed is not seen. Ventricles are normal in caliber. 1.4 cm suprasellar mass. Vague low-density left occipital lobe. No extra-axial fluid collection. No fluid within the sinuses/mastoids No fracture or dislocation is seen involving the cervical spine. Mild anterior subluxation C3 on C4. Moderate spondylosis mid and distal cervical spine. Some images are degraded by patient motion artifact. 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 Vague low-density left occipital lobe may represent artifact or subtle infarction. MRI of the brain would be helpful for further evaluation. Cervical fracture is not seen.
[2024-06-19 10:26] LABS: White Blood Cell Scan OK (OK)
[2024-06-19 10:27] LABS: Blood Morphology Comment NOT SEEN (NOT SEEN); Platelet Estimate ADEQ
[2024-06-19 10:39] LABS: Specific Gravity 1.015 (1.005-1.030); Sqamous Epithelial <5 /HPF (None Seen); Urine Bacteria None Seen /HPF (<20); Urine Bilirubin NEGATIVE (Negative); Urine Blood Negative (Negative); Urine Clarity Turbid (Clear); Urine Color Yellow (Yellow); Urine Culture Reflex Order NOT NEEDED; Urine Glucose NEGATIVE (Negative); Urine Ketones NEGATIVE (Negative); Urine Microscopic Reflex YN ORDER UMIC; Urine Mucus Slight /HPF (None Seen); Urine Nitrite NEGATIVE (Negative); Urine Protein NEGATIVE (Negative); Urine RBC <5 /HPF (None Seen); Urine Urobilinogen Normal (Normal); Urine pH 6.5 (5.0-7.0)
--- NOTE | 2024-06-19 10:39 | RAD REPORT ---
EXAM: CT CHEST, ABDOMEN AND PELVIS WITHOUT CONTRAST CLINICAL INDICATION: Chest and abdominal pain TECHNIQUE: CT chest, abdomen and pelvis was performed, without IV contrast, as per department protoco l. Axial, sagittal and coronal reconstructions were obtained. One or more of the following dose reduction techniques were used: Automated exposure control, adjustment of the mA and/or kV according to the patient size, and/or iterative reconstruction. Unless otherwise specified, incidental findings do not require dedicated imaging follow-up. The lack of IV and oral contrast limits evaluation of the mediastinum, fidel, vessels, organs and anshul l. COMPARISON: June 09, 2024 FINDINGS: Large left upper lobe mass which occludes left upper lobe bronchus resulting in atelectasis mildly en larged. The mass extends into the left aspect of the mediastinum. Small left pleural effusion has increased in size Multiple right lung nodules without significant change likely metastases Egqwj-oc-conekqud hiatal hernia Liver, spleen, pancreas and right adrenal gland grossly normal Left adrenal mass without significant change likely metastasis Right perirenal masses minimally enlarged. These are likely neoplastic. Mild enlargement left adnexal cystic mass may represent a metastasis. No bowel obstruction. 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 Right lung nodules, left adrenal mass, right perinephric masses and left adnexal cystic mass may all represent metastases.
--- NOTE | 2024-06-19 10:46 | RAD REPORT ---
Procedure: Chest Single View HISTORY: Cough COMPARISON: June 09, 2024 FINDINGS: Large left upper lobe mass with atelectasis . Small right lung nodules likely metastases Small left pleural effusion Normal heart size
--- NOTE | 2024-06-19 10:54 | ER ---
Nurse's Notes [facility] Name: Edda Stockton Age: 63 yrs Sex: Female : 1960 Arrival Date: 06/19/2024 Time: 09:26 Bed 3 Private MD: Diagnosis: Weakness;Dehydration;Malignant neoplasm of lower lobe, left bronchus or lung;Abnormal findings on diagnostic imaging of other specified body structures-metastatic brain mass;Altered mental status, unspecified;UTI/ Urinary tract infection, site not specified Presentation: 06/19 09:31 Chief complaint: EMS states: lethargy and AMS that began 2-3 days ago. Pt recently ss diagnosed with Stage IV CA. Has not yet started treatment. EMS reports initial systolic BP was 70 HR 30. 1000 mL of NS and Atropine 0.5 mg administered with improvement. BP 98/60 HR 60. Coronavirus screen: Client denies travel out of the [place] in the last 14 days. Ebola Screen: Patient denies exposure to infectious person. Patient denies travel to an Ebola-affected area in the 21 days before illness onset. Initial Sepsis Screen: Does the patient meet any 2 criteria? No. Patient's initial sepsis screen is negative. Does the patient have a suspected source of infection? No. Patient's initial sepsis screen is negative. Risk Assessment: Do you want to hurt yourself or someone else? Patient reports no desire to harm self or others. Onset of symptoms is unknown. 09:31 Method Of Arrival: EMS: [facility] 09:31 Acuity: OSCAR 2 ss Historical: - Allergies: 09:35 Codeine; ss - PMHx: 09:35 Asthma; Bipolar disorder; COPD; Hypertension; Lung Cancer (June 09); ss - Immunization history:: Adult Immunizations unknown. - Social history:: Smoking status: Patient/guardian denies using tobacco, but has a distant history of tobacco abuse. Screenin:46 [facility] ED Fall Risk Assessment (Adult) History of falling in the last 3 months, iw including since admission Yes- physiologic fall (2 pts) Confusion or Disorientation Yes (5 pts) Intoxicated or Sedated No (0 pts) Impaired Gait Yes (1 pt) Mobility Assist Device Used No (0 pt) Altered Elimination Yes (1 pt) Score/Fall Risk Level 3 or more points = High Risk Oriented to surroundings, Maintained a safe environment, Educated pt \T\ family on fall prevention, incl call for assistance when getting out of bed. Abuse screen: Denies threats or abuse. Nutritional screening: No deficits noted. Tuberculosis screening: No symptoms or risk factors identified. Assessment: 09:47 General: Appears uncomfortable, ill, Behavior is restless. Neuro: Level of iw Consciousness is awake, confused, Oriented to person, Moves all extremities. Cardiovascular: Patient's skin is warm and dry. Respiratory: Respiratory effort is even, labored, Respiratory pattern is regular. Derm: Skin is fragile, is thin, Skin is pale. 11:00 Reassessment: Patient appears in no apparent distress at this time. family at bedside iw Patient states symptoms have not improved. 12:58 Reassessment: Patient appears in no apparent distress at this time. spoke with Emy iw Nurse Supervisor [employer] at [facility], states pt is being reassigned a room on a different floor because pt does not have chemotherapy orders yet, waiting on discharges from the floor and she will karan us back with new bed assignment Patient states symptoms have not improved. 16:25 Reassessment: Patient appears in no apparent distress at this time. Pt remains altered jb4 and is A\T\0x1 to self. Plata removed per receiving facilities request due to no indication for plata. ER physician okayed lpata removal. 16:58 Reassessment: Shirt and bottoms found in room after pt departed ED, bagged and sent to [facility] security. Vital Signs: 09:31 BP 98 / 60; Pulse 87; Resp 20; Temp 98.4(A); Pulse Ox 96% on R/A; Height 5 ft. 2 in. ; ss Pain 0/10; 09:36 BP 100 / 67; Pulse 84; Resp 24 S; Pulse Ox 95% on R/A; iw 09:49 Weight 81.65 kg (R); iw 11:08 BP 96 / 62; Pulse 72; Resp 19; Pulse Ox 98% on R/A; iw 11:56 BP 106 / 68; Pulse 72; Resp 20; Pulse Ox 94% ; jl7 13:23 BP 107 / 71; Pulse 79; Resp 20; Pulse Ox 93% on R/A; iw 15:30 BP 125 / 62; Pulse 59; Resp 22; Pulse Ox 95% on R/A; jb4 16:27 BP 98 / 85; Pulse 76; Resp 25; Pulse Ox 96% on R/A; jb4 09:31 Pain Scale: Adult ss NIH Stroke Scale Scores: 11:09 NIHSS Score: 0 reed ED Course: 09:31 Patient arrived in ED. ss 09:32 Brandon Bernstein MD is Attending Physician. reed 09:35 Triage completed. ss 09:35 Arm band placed on right wrist. ss 09:35 Patient has correct armband on for positive identification. Client placed on continuous iw cardiac and pulse oximetry monitoring. NIBP monitoring applied. chief deputy sheriff on. 09:45 Initial lab(s) drawn, by me, sent to lab. Maintain EMS IV. Dressing intact. Good blood iw return noted. Site clean \T\ dry. Gauge \T\ site: 20 LFA. Flushed with 10 mL NS. 09:49 Alicia Saravia, RN is Primary Nurse. iw 09:55 XRAY Chest (1 view) In Process Unspecified. EDMS 10:01 Chest Abd Pelvis Wo Con In Process Unspecified. EDMS 10:01 Head C Spine Mpr Wo Con In Process Unspecified. EDMS 10:30 Plata cath inserted, using sterile technique, 16 Fr., by hi, balloon inflated, to iw gravity drainage, urine specimen collected. returned clear yellow urine. Patient tolerated well. 16:30 Plata cath removed intact, balloon deflated. jl7 16:38 Provided Education on: transfer. jl7 16:38 No provider procedures requiring assistance completed. Patient transferred, IV remains jl7 in place. intact, No redness/swelling at site. Administered Medications: 09:46 Discontinued: ns 0.9% 1000 ml IV at 1000 ml once; to be given as a bolus over 60 minutescha 09:46 Drug: NS 0.9% IV 1000 ml IV at 1000 ml once; to be given as a bolus over 60 minutes iw Route: IV; Rate: 1000 ml; Site: left forearm; 09:49 Follow up: IV Status: Order to discontinue infusion iw 09:50 Drug: NS 0.9% IV (30 ml/kg) 30 ml/kg IV at bolus once; Sepsis Protocol; to be given as iw a bolus over 90 minutes Route: IV; Rate: bolus; Site: left forearm; 15:10 Follow up: IV Status: Completed infusion iw 11:09 Drug: Rocephin IV 1 grams IV at per protocol once; Given slow IV push per pharmacy iw instructions Route: IV; Rate: per protocol; Site: left forearm; 11:12 Follow up: IV Status: Completed infusion iw 11:09 Drug: Decadron - Dexamethasone IVP 10 mg IVP once Route: IVP; Site: left forearm; iw 11:12 Follow up: Response: No adverse reaction iw 11:37 Drug: Keppra IV 1000 mg IV at per protocol once Route: IV; Rate: per protocol; Site: left forearm; 12:05 Follow up: IV Status: Completed infusion Medication: 11:57 VIS not applicable for this client. jl7 Outcome: 10:53 ER care complete, transfer ordered by . [facility] 16:39 [facility], Transfer form completed. jl7 16:39 Condition: stable 16:39 Discharge instructions given to patient, family, Instructed on the need for transfer, Demonstrated understanding of instructions, 16:40 Patient left the ED. jl7 NIH Stroke Scale - NIH Stroke Score Date: 06/19/2024 Time: 11:09 Total Score = 0 10. Dysarthria (speech clarity - read or repeat words) - 0(Normal) 11. Extinction and Inattention (visual/tactile/auditory/spatial/personal) - 0(No abnormality) 1a. Level of Consciousness (LOC) - 0(Alert) 1b. Level of Consciousness (LOC) (Month \T\ Age) - 0(Both) 1c. LOC Commands (Open \T\ Closes Eyes/Dolly Operator) - 0(Both) 2. Best Gaze (Lateral Gaze Paresis) - 0(Normal) 3. Visual Field Loss - 0(No visual loss) 4. Facial Palsy - 0(Normal) 5a. Left Arm: Motor (10-second hold) - 0(No drift) 5b. Right Arm: Motor (10-second hold) - 0(No drift) 6a. Left Leg: Motor (5-second hold - always test supine) - 0(No drift) 6b. Right Leg: Motor (5-second hold - always test supine) - 0(No drift) 7. Limb Ataxia (finger/nose \T\ heel/capps - test with eyes open) - 0(Absent) 8. Sensory Loss (pinprick arms/legs/face) - 0(Normal) 9. Best Language: Aphasia (description/naming/reading) - 0(No aphasia) Initials: reed Signatures: Dispatcher [employer] Brandon Hays MD MD cha Williams, Irene, RN RN iw Estrella Ball, RN RN ss Tomi Bailey, SHEN RN jb4 Annika Ramirez RN RN jl7 Corrections: (The following items were deleted from the chart) 13:23 13:22 Reassessment: Patient appears in no apparent distress at this time. iw family at bedside Patient states symptoms have not improved. 17:09 16:39 Transferred by ground EMS to [facility], Transfer form jl7 completed. jl7
--- NOTE | 2024-06-19 10:54 | EDPHYS ---
Physician Documentation [facility] Name: Edda Stockton Age: 63 yrs Sex: Female : 1960 Arrival Date: 06/19/2024 Time: 09:26 Bed 3 Private MD: ED Physician Brandon Bernstein HPI: 06/19 10:04 This 63 yrs old Female presents to ER via EMS with complaints of Altered reed Mental Status, General Weakness. 10:04 The patient presents with confusion, decreased mental status, decreased responsiveness, reed trouble concentrating. Onset: The symptoms/episode began/occurred 3 day(s) ago. Possible causes: CVA or TIA, alcohol, head injury, low blood sugar, seizure, sepsis. Associated signs and symptoms: Pertinent positives:. Current symptoms: In the emergency department the patient's symptoms are unchanged from the initial presentation. Patient's baseline: Neuro: alert and fully oriented. The patient has not experienced similar symptoms in the past. Historical: - Allergies: :35 Codeine; ss - PMHx: :35 Asthma; Bipolar disorder; COPD; Hypertension; Lung Cancer (June 09); ss - Immunization history:: Adult Immunizations unknown. - Social history:: Smoking status: Patient/guardian denies using tobacco, but has a distant history of tobacco abuse. ROS: 10:05 Constitutional: Negative for fever, chills, and weight loss, Eyes: Negative for injury, reed pain, redness, and discharge, ENT: Negative for injury, pain, and discharge, Neck: Negative for injury, pain, and swelling, Cardiovascular: Negative for chest pain, palpitations, and edema, Respiratory: Negative for shortness of breath, cough, wheezing, and pleuritic chest pain, Abdomen/GI: Negative for abdominal pain, nausea, vomiting, diarrhea, and constipation, Back: Negative for injury and pain, : Negative for injury, bleeding, discharge, and swelling, MS/Extremity: Negative for injury and deformity, Skin: Negative for injury, rash, and discoloration, Allergy/Immunology: Negative for hives, rash, and allergies, Endocrine: Negative for neck swelling, polydipsia, polyuria, polyphagia, and marked weight changes, Hematologic/Lymphatic: Negative for swollen nodes, abnormal bleeding, and unusual bruising, 10:05 Neuro: Positive for altered mental status, dizziness, weakness, Exam: 10:05 Constitutional: This is a well developed, well nourished patient who is awake, alert, reed and in no acute distress. Head/Face: Normocephalic, atraumatic. Eyes: Pupils equal round and reactive to light, extra-ocular motions intact. Lids and lashes normal. Conjunctiva and sclera are non-icteric and not injected. Cornea within normal limits. Periorbital areas with no swelling, redness, or edema. Neck: Trachea midline, no thyromegaly or masses palpated, and no cervical lymphadenopathy. Supple, full range of motion without nuchal rigidity, or vertebral point tenderness. No Meningismus. Chest/axilla: Normal chest wall appearance and motion. Nontender with no deformity. No lesions are appreciated. Cardiovascular: Regular rate and rhythm with a normal S1 and S2. No gallops, murmurs, or rubs. Normal PMI, no JVD. No pulse deficits. Respiratory: Lungs have equal breath sounds bilaterally, clear to auscultation and percussion. No rales, rhonchi or wheezes noted. No increased work of breathing, no retractions or nasal flaring. 10:05 ENT: Mouth: Oral mucosa: dry, 10:05 Neuro: Orientation: to person, place, time, Not oriented to situation, Mentation: slow to respond, confused, Memory: unable to test, Cranial nerves: is grossly normal based on the patient's age, no acute changes, Cerebellar function: is grossly normal, is grossly normal based on the patient's age, Motor: moves all fours, Sensation: is normal, no obvious gross deficits, Gait: not tested. 10:09 ECG was reviewed by the Attending Physician. [facility] Vital Signs: 09:31 BP 98 / 60; Pulse 87; Resp 20; Temp 98.4(A); Pulse Ox 96% on R/A; Height 5 ft. 2 in. ; ss Pain 0/10; 09:36 BP 100 / 67; Pulse 84; Resp 24 S; Pulse Ox 95% on R/A; iw 09:49 Weight 81.65 kg (R); iw 11:08 BP 96 / 62; Pulse 72; Resp 19; Pulse Ox 98% on R/A; iw 11:56 BP 106 / 68; Pulse 72; Resp 20; Pulse Ox 94% ; jl7 13:23 BP 107 / 71; Pulse 79; Resp 20; Pulse Ox 93% on R/A; iw 15:30 BP 125 / 62; Pulse 59; Resp 22; Pulse Ox 95% on R/A; jb4 16:27 BP 98 / 85; Pulse 76; Resp 25; Pulse Ox 96% on R/A; jb4 09:31 Pain Scale: Adult ss NIH Stroke Scale Scores: 11:09 NIHSS Score: 0 reed MDM: 09:32 Medical Screening Exam initiated reed 10:07 Differential Diagnosis altered mental status, sepsis, flu. Differential Diagnosis: reed cardiac arrhythmia, drug effect, emotional response, GI bleed, idiopathic syncope, sepsis, transient ischemic attack, CVA, electrolyte abnormality, hypoglycemia, intracranial bleed, meningitis, pneumonia, seizure, sepsis, TIA, UTI, volume depletion. Data reviewed: vital signs, nurses notes, lab test result(s), EKG, radiologic studies, plain films. Consideration of Admission/Observation Patient was admitted/placed on observation. Escalation of care including admission/observation considered. I considered the following discharge prescriptions or medication management in the emergency department Medications were administered in the Emergency Department. See MAR. Independent interpretation of the following test(s) in the Emergency Department EKG: See my EKG interpretation above. Test considered but Not performed: MRI: no mri brain. Historians other than the Patient: Family Member: daughter. Care significantly affected by the following chronic conditions: Hypertension, Chronic Obstructive Pulmonary Disease, Obesity, Cancer, bipolar. 06/19 09:33 Order name: Basic Metabolic Panel; Complete Time: 10:22 [facility] 06/19 09:33 Order name: CBC with Diff; Complete Time: 10:46 [facility] 06/19 09:33 Order name: LFT's; Complete Time: 10:22 [facility] 06/19 09:33 Order name: Magnesium; Complete Time: 10:22 [facility] 06/19 09:33 Order name: NT PRO-BNP; Complete Time: 10:22 [facility] 06/19 09:33 Order name: PT-INR; Complete Time: 10:22 reed 06/19 09:33 Order name: Troponin HS; Complete Time: 10:22 [facility] 06/19 09:33 Order name: Lipase; Complete Time: 10:22 [facility] 06/19 09:33 Order name: Urinalysis w/ reflexes; Complete Time: 10:46 [facility] 06/19 09:33 Order name: Lactate w/ 2H reflex if indic.; Complete Time: 10:22 [facility] 06/19 09:33 Order name: Blood Culture Adult (2) [facility] 06/19 10:27 Order name: CBC Smear Scan; Complete Time: 10:46 [facility]MN 06/19 09:33 Order name: XRAY Chest (1 view); Complete Time: 10:53 [facility] 06/19 09:46 Order name: CT Traumagram (Head C Spine CAP wo con) [facility] 06/19 09:49 Order name: Chest Abd Pelvis Wo Con; Complete Time: 10:46 [facility]MN 06/19 09:50 Order name: Head C Spine Mpr Wo Con; Complete Time: 10:46 [facility]MN 06/19 09:33 Order name: EKG; Complete Time: 09:34 [facility] 06/19 09:33 Order name: Cardiac monitoring; Complete Time: 09:46 [facility] 06/19 09:33 Order name: EKG - Nurse/Tech; Complete Time: 09:46 [facility] 06/19 09:33 Order name: IV Saline Lock; Complete Time: 09:46 [facility] 06/19 09:33 Order name: Labs collected and sent; Complete Time: 09:46 [facility] 06/19 09:33 Order name: O2 Per Protocol; Complete Time: 09:46 [facility] 06/19 09:33 Order name: O2 Sat Monitoring; Complete Time: 09:46 [facility] 06/19 09:48 Order name: Burns; Complete Time: 10:18 [facility] EC:09 Rate is 79 beats/min. Rhythm is regular. QRS [place] is Normal. MT interval is normal. QRS reed interval is normal. QT interval is normal. No Q waves. T waves are Normal. No ST changes noted. Clinical impression: NSR w/ Non-specific ST/T Changes and No evidence of ischemia. Interpreted by me. Reviewed by me. Administered Medications: :46 Discontinued: ns 0.9% 1000 ml IV at 1000 ml once; to be given as a bolus over 60 minutescha :46 Drug: NS 0.9% IV 1000 ml IV at 1000 ml once; to be given as a bolus over 60 minutes iw Route: IV; Rate: 1000 ml; Site: left forearm; 09:49 Follow up: IV Status: Order to discontinue infusion iw 09:50 Drug: NS 0.9% IV (30 ml/kg) 30 ml/kg IV at bolus once; Sepsis Protocol; to be given as iw a bolus over 90 minutes Route: IV; Rate: bolus; Site: left forearm; 15:10 Follow up: IV Status: Completed infusion iw 11:09 Drug: Rocephin IV 1 grams IV at per protocol once; Given slow IV push per pharmacy iw instructions Route: IV; Rate: per protocol; Site: left forearm; 11:12 Follow up: IV Status: Completed infusion iw 11:09 Drug: Decadron - Dexamethasone IVP 10 mg IVP once Route: IVP; Site: left forearm; iw 11:12 Follow up: Response: No adverse reaction iw 11:37 Drug: Keppra IV 1000 mg IV at per protocol once Route: IV; Rate: per protocol; Site: iw left forearm; 12:05 Follow up: IV Status: Completed infusion iw Disposition Summary: 06/19/24 10:53 Transfer Ordered Notes: Transfer Location: [facility] reed Reason: Higher level of care reed Condition: Fair reed Problem: new reed Symptoms: have improved reed Accepting Physician: to [facility](06/19/24 16:40) jl7 Diagnosis - Weakness reed - Dehydration reed - Malignant neoplasm of lower lobe, left bronchus or lung reed - Abnormal findings on diagnostic imaging of other specified body structures - reed metastatic brain mass - Altered mental status, unspecified reed - UTI/ Urinary tract infection, site not specified reed Forms: - Medication Reconciliation Form reed - SBAR form reed NIH Stroke Scale - NIH Stroke Score Date: 06/19/2024 Time: 11:09 Total Score = 0 10. Dysarthria (speech clarity - read or repeat words) - 0(Normal) 11. Extinction and Inattention (visual/tactile/auditory/spatial/personal) - 0(No abnormality) 1a. Level of Consciousness (LOC) - 0(Alert) 1b. Level of Consciousness (LOC) (Month \T\ Age) - 0(Both) 1c. LOC Commands (Open \T\ Closes Eyes/Internet Marketing Executive) - 0(Both) 2. Best Gaze (Lateral Gaze Paresis) - 0(Normal) 3. Visual Field Loss - 0(No visual loss) 4. Facial Palsy - 0(Normal) 5a. Left Arm: Motor (10-second hold) - 0(No drift) 5b. Right Arm: Motor (10-second hold) - 0(No drift) 6a. Left Leg: Motor (5-second hold - always test supine) - 0(No drift) 6b. Right Leg: Motor (5-second hold - always test supine) - 0(No drift) 7. Limb Ataxia (finger/nose \T\ heel/capps - test with eyes open) - 0(Absent) 8. Sensory Loss (pinprick arms/legs/face) - 0(Normal) 9. Best Language: Aphasia (description/naming/reading) - 0(No aphasia) Initials: reed Signatures: Dispatcher [employer] EDMS Brandon Bernstein MD MD cha Williams, Irene, RN SHEN iw Estrella Ball, RN Annika Redd RN RN [email or web address] Corrections: (The following items were deleted from the chart) 09:34 09:34 BASIC METABOLIC PANEL+C.LAB.BRZ ordered. EDMS EDMS 09:34 09:34 CBC+H.LAB.BRZ ordered. EDMS EDMS 09:34 09:34 HEPATIC FUNCTION+C.LAB.BRZ ordered. EDMS EDMS 09:34 09:34 MAGNESIUM+C.LAB.BRZ ordered. EDMS EDMS 09:34 09:34 PROBNP+C.LAB.BRZ ordered. EDMS EDMS 09:34 09:34 PROTIME (+INR)+COAG.LAB.BRZ ordered. EDMS EDMS 09:34 09:34 Troponin High Sensitivity+C.LAB.BRZ ordered. EDMS EDMS 09:34 09:34 LIPASE+C.LAB.BRZ ordered. EDMS EDMS 09:34 09:34 Urinalysis+U.LAB.BRZ ordered. EDMS EDMS 09:34 09:34 LACTATE+C.LAB.BRZ ordered. EDMS EDMS 09:34 09:34 BLOOD CULTURE*+BA.LAB.BRZ ordered. EDMS EDMS 09:50 09:34 Head Brain Wo Cont+CT.RAD.BRZ ordered. EDMS EDMS 16:40 10:53 to [facility] reed christie
[2024-06-19] MEDS ORDERED: dexAMETHasone 10 MG/ML VIAL ONE (11:05)
[2024-06-19] MEDS ORDERED: NA CHLORIDE 0.9% 100 ML ONE (11:29)
[2024-06-19] MEDS ORDERED: LEVETIRACETAM 500 MG/5 ML VIAL IV ONE (11:29)
[2024-06-19] MEDS ORDERED: NA CHLORIDE 0.9% 500 ML ONE (14:38)
[2024-06-19 16:50] VITALS: TEMP 98.4
[2024-06-19 17:01] VITALS: BP 98/85; O2SAT 96
--- NOTE | 2024-06-20 12:21 | EKG ---
Test Date: 2024-06-19 Test Time: 09:37:58 Procurement Engineer: WOJCIECH MEASUREMENT RESULTS: Intervals: Rate: 79 WI: 136 QRSD: 74 QT: 374 QTc: 428 [place]: P: 50 WI: 136 QRS: 49 T: 21 INTERPRETIVE STATEMENTS: Normal sinus rhythm Normal ECG Compared to ECG 06/09/2024 00:13:21 Sinus tachycardia no longer present Electronically Signed On 06-20-24 12:20:17 CDT by Giovanni Mccoy
== END 2024-06-19 16:40 | disposition short-term general hospital (02) ==
LOC: ER 09:26
DX: E86.0 Dehydration (principal); N39.0 Urinary tract infection, site not specified; R53.1 Weakness; C79.31 Secondary malignant neoplasm of brain; C34.32 Malignant neoplasm of lower lobe, left bronchus or lung; I10 Essential (primary) hypertension; J44.9 Chronic obstructive pulmonary disease, unspecified
CPT/HCPCS: 96365; 93005; 87040 ×2; 85025; 81001; 80048; 36415; 83735; 85610; 80076; 83605; 84484; 83690; 83880; 70450; 71250; 72125; 74176; 71045; 51702; 96375; 99285; 96366; J1953; J1100; J7040; J7030; J0696